=== PATIENT | female | born 1970 | race Caucasian/White ===

== ENCOUNTER 2016-07-25 00:31 | Emergency (ER) | payer MEDICARE, MEDICAID ==
[~2016-07-25] VITALS: Ht 175.3 cm; Wt 136.1 kg
[2016-07-25] MEDS ORDERED: ACETAMINOPHEN ES 500 MG TABLET ONE (02:24)
[2016-07-25] MEDS ORDERED: ACETAMINOPHEN 325 MG TABLET PO ONE (02:30)
[2016-07-25 07:55] VITALS: BP 118/72
== END 2016-07-25 03:29 | disposition home or self-care (01) ==
LOC: ER 00:34
DX: M25.569 Pain in unspecified knee (principal)
CPT/HCPCS: A4606; Z7610

== ENCOUNTER 2016-09-15 18:00 | Emergency (ER) | payer MEDICARE, MEDICAID ==
[~2016-09-15] VITALS: Ht 172.7 cm; Wt 124.7 kg
[2016-09-15 18:03] VITALS: BP 129/84
== END 2016-09-15 19:25 | disposition home or self-care (01) ==
LOC: ER 18:02
DX: F41.0 Panic disorder [episodic paroxysmal anxiety] (principal); F32.9 Major depressive disorder, single episode, unspecified; F43.9 Reaction to severe stress, unspecified; I10 Essential (primary) hypertension; E78.00 Pure hypercholesterolemia, unspecified; F41.9 Anxiety disorder, unspecified
CPT/HCPCS: 99284; A4606; Z7610

== ENCOUNTER 2016-12-31 22:09 | Inpatient (IN) | payer MEDICARE, MEDICAID ==
[~2016-12-31] VITALS: Ht 175.3 cm; Wt 143.8 kg
[2016-12-31] MEDS ORDERED: ACETAMINOPHEN ES 500 MG TABLET ONE (22:55)
[2016-12-31] MEDS ORDERED: ACETAMINOPHEN ES 500 MG TABLET PO ONE (23:00)
[2016-12-31 23:28] LABS: BASOPHILS % (AUTO) 0.5 % (0.0-2.0); EOSINOPHILS # (AUTO) 0.3 /CMM (0.0-0.7); EOSINOPHILS % (AUTO) 4.9 % (0.0-6.0); HEMATOCRIT 37 % (33-45); HEMOGLOBIN 12.3 g/dL (11.5-14.8); LYMPHOCYTES # (AUTO) 1.4 /CMM (0.8-4.8); LYMPHOCYTES % (AUTO) 21.5 % (20.0-44.0); MEAN CORPUSCULAR HEMOGLOBIN 30 PG (26.0-33.0); MEAN CORPUSCULAR HGB CONC 34 g/dl (31.0-36.0); MEAN CORPUSCULAR VOLUME 89 fL (82-100); MONOCYTES # (AUTO) 0.6 /CMM (0.1-1.30); MONOCYTES % (AUTO) 8.8 % (2.0-12.0); NEUTROPHILS # (AUTO) 4.1 /CMM (1.8-8.9); NEUTROPHILS % (AUTO) 64.3 % (43.0-81.0); PLATELET COUNT (AUTO) 206 /CMM (150-450); RDW COEFFICIENT OF VARIATION 13.8 (11.5-15.0); RED BLOOD CELL COUNT(AUTO) 4.13 MIL/uL (4.0-5.2); WHITE BLOOD COUNT (AUTO) 6.4 K/uL (4.3-11.0)
[2016-12-31 23:40] LABS: CALCIUM, SERUM 8.7 mg/dL (8.5-10.1); CREATININE 1.8 mg/dL (0.6-1.3); POTASSIUM 3.8 mmol/L (3.5-5.1)
[2017-01-01] MEDS ORDERED: FUROSEMIDE 20 MG/2 ML VIAL IV SCH (01:00)
[2017-01-01] MEDS ORDERED: NITROGLYCERIN 0.4 MG/TAB BOTTLE SL ONE (01:00)
[2017-01-01 01:20] LABS: INR 0.95 (0.87-1.13); PROTHROMBIN TIME 10.1 SECS (9.5-12.7)
[2017-01-01] MEDS ORDERED: NITROGLYCERIN 0.4 MG/TAB BOTTLE ONE (01:47)
[2017-01-01] MEDS ORDERED: FUROSEMIDE 40 MG/4 ML VIAL ONE (01:47)
[2017-01-01] MEDS ORDERED: TOPI50TA21 PO (02:05)
[2017-01-01] MEDS ORDERED: TAMO20TA4 PO (02:05)
[2017-01-01] MEDS ORDERED: QUET400T PO (02:05)
[2017-01-01] MEDS ORDERED: ATOR10TA PO (02:05)
[2017-01-01] MEDS ORDERED: CLON1TAB4 PO (02:05)
[2017-01-01] MEDS ORDERED: ACET500C4 PO (02:06)
[2017-01-01] MEDS ORDERED: LORA1TAB PO (02:06)
[2017-01-01] MEDS ORDERED: ESCI20TA PO (02:06)
[2017-01-01] MEDS ORDERED: RISP3TAB5 PO (02:06)
[2017-01-01] MEDS ORDERED: IBUP-1482 PO (02:06)
[2017-01-01] MEDS ORDERED: BENZ1TAB7 PO (02:06)
[2017-01-01] MEDS ORDERED: ACETAMINOPHEN 650 MG/20.3 ML UDC NG PRN (03:00)
[2017-01-01] MEDS ORDERED: ENOXAPARIN SODIUM 40 MG/0.4 ML DISP.SYRIN SQ SCH (03:00)
[2017-01-01] MEDS ORDERED: LORAZEPAM INJ 2 MG/ML VIAL IV PRN (03:00)
[2017-01-01] MEDS ORDERED: ENOXAPARIN SODIUM 40 MG/0.4 ML DISP.SYRIN SQ ONE (03:08)
[2017-01-01] MEDS ORDERED: BUMETANIDE INJ 0.25 MG/ML VIAL ONE (03:08)
[2017-01-01 03:13] VITALS: BP 150/72
[2017-01-01] MEDS ORDERED: BUMETANIDE INJ 0.25 MG/ML VIAL IV SCH ×2 (04:00→10:00)
[2017-01-01 06:45] LABS: BASOPHILS % (AUTO) 0.6 % (0.0-2.0); EOSINOPHILS # (AUTO) 0.4 /CMM (0.0-0.7); EOSINOPHILS % (AUTO) 6.2 % (0.0-6.0); HEMATOCRIT 38 % (33-45); HEMOGLOBIN 12.8 g/dL (11.5-14.8); LYMPHOCYTES # (AUTO) 1.3 /CMM (0.8-4.8); LYMPHOCYTES % (AUTO) 23.4 % (20.0-44.0); MEAN CORPUSCULAR HEMOGLOBIN 30 PG (26.0-33.0); MEAN CORPUSCULAR HGB CONC 34 g/dl (31.0-36.0); MEAN CORPUSCULAR VOLUME 89 fL (82-100); MONOCYTES # (AUTO) 0.5 /CMM (0.1-1.30); MONOCYTES % (AUTO) 8.3 % (2.0-12.0); NEUTROPHILS # (AUTO) 3.5 /CMM (1.8-8.9); NEUTROPHILS % (AUTO) 61.5 % (43.0-81.0); PLATELET COUNT (AUTO) 198 /CMM (150-450); RDW COEFFICIENT OF VARIATION 14.2 (11.5-15.0); RED BLOOD CELL COUNT(AUTO) 4.23 MIL/uL (4.0-5.2); WHITE BLOOD COUNT (AUTO) 5.7 K/uL (4.3-11.0)
[2017-01-01 06:54] LABS: CALCIUM, SERUM 8.9 mg/dL (8.5-10.1); CARBON DIOXIDE 25 mmol/L (21-32); CHLORIDE 107 mmol/L (98-107); CREATININE 1.8 mg/dL (0.6-1.3); GLUCOSE 108 mg/dL (74-106); MAGNESIUM 2.1 mg/dL (1.8-2.4); PHOSPHORUS 4.9 mg/dL (2.5-4.9); POTASSIUM 3.9 mmol/L (3.5-5.1); SODIUM SERUM 141 mmol/L (136-145); UREA NITROGEN, BLOOD 36 mg/dL (7-18)
[2017-01-01 07:11] LABS: CHOLESTEROL 196 mg/dL (<200); HDL CHOLESTEROL 52 mg/dL (40-60); LDL 114 mg/dL (0-99); TRIGLYCERIDES 88 mg/dL (30-150)
[2017-01-01 07:13] LABS: TROPONIN I < 0.017 ng/mL (0.00-0.056)
[2017-01-01 08:00] VITALS: BP 131/77
[2017-01-01] MEDS ORDERED: LORAZEPAM 1 MG TABLET PO PRN (08:30)
[2017-01-01] MEDS ORDERED: IBUPROFEN 800 MG TABLET PO PRN (08:30)
[2017-01-01] MEDS: PANTOPRAZOLE 40 MG TABLET.DR PO SCH (09:07)
[2017-01-01] MEDS: ASPIRIN 81 MG TAB.CHEW PO SCH (09:07)
[2017-01-01 09:14] LABS: THYROID STIMULATING HORMONE 4.221 uIU/mL (0.358-3.74)
[2017-01-01] MEDS ORDERED: ACETAMINOPHEN ES 500 MG TABLET PO PRN (11:30)
[2017-01-01 12:00] VITALS: BP 133/71
[2017-01-01] MEDS: IBUPROFEN 200 MG TABLET PO PRN ×2 (12:40→21:59)
[2017-01-01 16:00] VITALS: BP 121/67
[2017-01-01] MEDS: risperiDONE 1 MG TABLET PO SCH (16:32)
[2017-01-01] MEDS: clonazePAM 1 MG TABLET PO SCH (16:32)
[2017-01-01] MEDS: BENZTROPINE MESYLATE (1 MG) 1 MG TABLET PO SCH (16:32)
[2017-01-01] MEDS: ACETAMINOPHEN ES 500 MG TABLET PO PRN (16:35)
[2017-01-01 20:00] VITALS: BP 152/82
[2017-01-01] MEDS: ATORVASTATIN 10 MG TABLET PO SCH (22:00)
[2017-01-01] MEDS: TOPIRAMATE 25 MG TABLET PO SCH (22:02)
[2017-01-01] MEDS: QUETIAPINE FUMARATE 100 MG TABLET PO SCH (22:02)
[2017-01-01] MEDS: TAMOXIFEN CITRATE 10 MG TABLET PO SCH (22:03)
[2017-01-02] VITALS: BP_SYST 154; BP_DIAS 70; BP_DIAS 80
[2017-01-02 04:00] VITALS: BP 149/73
[2017-01-02 06:46] LABS: ALBUMIN 3.2 g/dL (3.4-5.0); BILIRUBIN,TOTAL 0.2 mg/dL (0.2-1.0); MAGNESIUM 2.3 mg/dL (1.8-2.4); POTASSIUM 4.3 mmol/L (3.5-5.1)
[2017-01-02 06:52] LABS: BASOPHILS % (AUTO) 0.4 % (0.0-2.0); EOSINOPHILS # (AUTO) 0.3 /CMM (0.0-0.7); EOSINOPHILS % (AUTO) 5.2 % (0.0-6.0); HEMATOCRIT 40 % (33-45); HEMOGLOBIN 13.3 g/dL (11.5-14.8); LYMPHOCYTES # (AUTO) 1.2 /CMM (0.8-4.8); LYMPHOCYTES % (AUTO) 20.7 % (20.0-44.0); MEAN CORPUSCULAR HEMOGLOBIN 30 PG (26.0-33.0); MEAN CORPUSCULAR HGB CONC 34 g/dl (31.0-36.0); MEAN CORPUSCULAR VOLUME 89 fL (82-100); MONOCYTES # (AUTO) 0.6 /CMM (0.1-1.30); MONOCYTES % (AUTO) 9.8 % (2.0-12.0); NEUTROPHILS # (AUTO) 3.7 /CMM (1.8-8.9); NEUTROPHILS % (AUTO) 63.9 % (43.0-81.0); PLATELET COUNT (AUTO) 203 /CMM (150-450); RDW COEFFICIENT OF VARIATION 14.1 (11.5-15.0); RED BLOOD CELL COUNT(AUTO) 4.44 MIL/uL (4.0-5.2); WHITE BLOOD COUNT (AUTO) 5.8 K/uL (4.3-11.0)
[2017-01-02 08:00] VITALS: BP 128/78
[2017-01-02] MEDS: ACETAMINOPHEN ES 500 MG TABLET PO PRN (08:23)
[2017-01-02] MEDS: clonazePAM 1 MG TABLET PO SCH ×2 (08:24→16:08)
[2017-01-02] MEDS: ASPIRIN 81 MG TAB.CHEW PO SCH (08:24)
[2017-01-02] MEDS: risperiDONE 1 MG TABLET PO SCH ×2 (08:24→16:08)
[2017-01-02] MEDS: PANTOPRAZOLE 40 MG TABLET.DR PO SCH (08:24)
[2017-01-02] MEDS: BENZTROPINE MESYLATE (1 MG) 1 MG TABLET PO SCH ×2 (08:24→16:08)
[2017-01-02] MEDS: ESCITALOPRAM OXALATE (10 MG) 10 MG TABLET PO SCH (08:24)
[2017-01-02] MEDS: ENOXAPARIN SODIUM 40 MG/0.4 ML DISP.SYRIN SQ SCH (08:29)
[2017-01-02] MEDS: LEVOTHYROXINE SODIUM 50 MCG TABLET PO SCH (08:31)
[2017-01-02 15:54] VITALS: BP 128/78
[2017-01-02 20:00] VITALS: BP 128/78
[2017-01-02 20:03] VITALS: BP 128/78
[2017-01-02] MEDS: QUETIAPINE FUMARATE 100 MG TABLET PO SCH (22:02)
[2017-01-02] MEDS: ATORVASTATIN 10 MG TABLET PO SCH (22:02)
[2017-01-02] MEDS: TOPIRAMATE 25 MG TABLET PO SCH (22:02)
[2017-01-02] MEDS: TAMOXIFEN CITRATE 10 MG TABLET PO SCH (22:03)
[2017-01-03 07:17] LABS: BASOPHILS % (AUTO) 0.3 % (0.0-2.0); EOSINOPHILS # (AUTO) 0.3 /CMM (0.0-0.7); EOSINOPHILS % (AUTO) 5.6 % (0.0-6.0); HEMATOCRIT 38 % (33-45); HEMOGLOBIN 12.8 g/dL (11.5-14.8); LYMPHOCYTES # (AUTO) 1.3 /CMM (0.8-4.8); MEAN CORPUSCULAR HEMOGLOBIN 30 PG (26.0-33.0); MEAN CORPUSCULAR HGB CONC 34 g/dl (31.0-36.0); MEAN CORPUSCULAR VOLUME 90 fL (82-100); MONOCYTES # (AUTO) 0.5 /CMM (0.1-1.30); MONOCYTES % (AUTO) 8.9 % (2.0-12.0); NEUTROPHILS # (AUTO) 3.8 /CMM (1.8-8.9); NEUTROPHILS % (AUTO) 63.2 % (43.0-81.0); PLATELET COUNT (AUTO) 197 /CMM (150-450); RDW COEFFICIENT OF VARIATION 13.7 (11.5-15.0); RED BLOOD CELL COUNT(AUTO) 4.21 MIL/uL (4.0-5.2)
[2017-01-03 07:24] LABS: CREATININE 1.8 mg/dL (0.6-1.3); MAGNESIUM 2.3 mg/dL (1.8-2.4)
[2017-01-03 08:00] VITALS: BP 130/71
[2017-01-03] MEDS: PANTOPRAZOLE 40 MG TABLET.DR PO SCH (09:12)
[2017-01-03] MEDS: clonazePAM 1 MG TABLET PO SCH (09:12)
[2017-01-03] MEDS: LEVOTHYROXINE SODIUM 50 MCG TABLET PO SCH (09:12)
[2017-01-03] MEDS: ESCITALOPRAM OXALATE (10 MG) 10 MG TABLET PO SCH (09:13)
[2017-01-03] MEDS: ASPIRIN 81 MG TAB.CHEW PO SCH (09:13)
[2017-01-03] MEDS: risperiDONE 1 MG TABLET PO SCH (09:13)
[2017-01-03] MEDS: BENZTROPINE MESYLATE (1 MG) 1 MG TABLET PO SCH (09:13)
[2017-01-03] MEDS: ENOXAPARIN SODIUM 40 MG/0.4 ML DISP.SYRIN SQ SCH (09:19)
[2017-01-03] MEDS: ACETAMINOPHEN ES 500 MG TABLET PO PRN (09:24)
== END 2017-01-03 12:21 | DRG 291 ==
LOC: ER 22:11 → TELE 01-01 00:43 → MED 01-02 08:48
PROVIDERS: ADMIT Legal Medicine; ATTEND Legal Medicine
DX: I13.0 Hypertensive heart and chronic kidney disease with heart failure and stage 1 through stage 4 chronic kidney disease, or unspecified chronic kidney disease (principal); I50.33 Acute on chronic diastolic (congestive) heart failure; F20.0 Paranoid schizophrenia; Z68.42 Body mass index [BMI] 45.0-49.9, adult; I89.0 Lymphedema, not elsewhere classified; N18.9 Chronic kidney disease, unspecified; E11.22 Type 2 diabetes mellitus with diabetic chronic kidney disease; D64.9 Anemia, unspecified; E03.9 Hypothyroidism, unspecified; E66.01 Morbid (severe) obesity due to excess calories; G89.29 Other chronic pain; Z95.0 Presence of cardiac pacemaker; Z85.3 Personal history of malignant neoplasm of breast; M19.90 Unspecified osteoarthritis, unspecified site; F79 Unspecified intellectual disabilities; Z79.899 Other long term (current) drug therapy; I49.5 Sick sinus syndrome
CPT/HCPCS: 36415; 71010-TC; 76770-TC; 80048-TC; 80053-TC; 80061-TC; 82306; 82728-TC; 83540-TC; 83735-TC; 83880; 84100-TC; 84439-TC; 84443-TC; 84484-TC; 85025-TC; 85610-TC; 87081-TC; 93307-TC; 97001-TC; A4606; J1650; J1940; J3490; Z7610

== ENCOUNTER 2017-01-13 12:37 | Emergency (ER) | payer MEDICARE, MEDICAID ==
[~2017-01-13] VITALS: Ht 175.3 cm; Wt 143.8 kg
[~2017-01-13 12:37] MED LIST: ACET500C4 PO; ATOR10TA PO; BENZ1TAB7 PO; CLON1TAB4 PO; ESCI20TA PO; IBUP-1482 PO; LORA1TAB PO; QUET400T PO; RISP3TAB5 PO; TAMO20TA4 PO; TOPI50TA21 PO
--- NOTE | 2017-01-13 13:00 | NUR ---
PT BIBA FOR VAGINAL PAIN SINCE YESTERDAY. NOTED ANXIOUS. DENIES TRAUMA. VSS. SEEN BY MD FOR EVAL. SAFETY AND COMFORT MEASURES PROVIDED. WILL MONITOR.
[2017-01-13 13:34] LABS: BASOPHILS # (AUTO) 0.1 /CMM (0.0-0.2); EOSINOPHILS # (AUTO) 0.3 /CMM (0.0-0.7); EOSINOPHILS % (AUTO) 4.4 % (0.0-6.0); HEMATOCRIT 39 % (33-45); LYMPHOCYTES # (AUTO) 1.1 /CMM (0.8-4.8); LYMPHOCYTES % (AUTO) 17.4 % (20.0-44.0); MEAN CORPUSCULAR HEMOGLOBIN 30 PG (26.0-33.0); MEAN CORPUSCULAR HGB CONC 33 g/dl (31.0-36.0); MEAN CORPUSCULAR VOLUME 89 fL (82-100); MONOCYTES # (AUTO) 0.5 /CMM (0.1-1.30); MONOCYTES % (AUTO) 7.4 % (2.0-12.0); NEUTROPHILS # (AUTO) 4.6 /CMM (1.8-8.9); NEUTROPHILS % (AUTO) 69.8 % (43.0-81.0); PLATELET COUNT (AUTO) 187 /CMM (150-450); RDW COEFFICIENT OF VARIATION 12.8 (11.5-15.0); RED BLOOD CELL COUNT(AUTO) 4.36 MIL/uL (4.0-5.2); WHITE BLOOD COUNT (AUTO) 6.6 K/uL (4.3-11.0)
--- NOTE | 2017-01-13 13:34 | NUR ---
IV ACCESS STARTED. BLOOD DRAWN FOR LABS.
[2017-01-13 13:36] LABS: BILIRUBIN,URINE Negative (NEGATIVE); BLOOD, URINE Negative Ery/uL (NEGATIVE); COLOR,URINE Yellow (YELLOW); KETONES,URINE Trace (NEGATIVE); LEUKOCYTE ESTERASE ,URINE Negative (NEGATIVE); NITRITE, URINE Negative (NEGATIVE); PH,URINE 5.5 (5.0-8.0); PROTEIN,URINE Negative (NEGATIVE); UGLUCOSE Negative (NEGATIVE); UROBILINOGEN,URINE 0.2 EU/dL (0.2)
[2017-01-13 13:37] LABS: APPEARANCE,URINE Hazy (CLEAR)
[2017-01-13 13:38] LABS: PREGNANCY TEST URINE QUAL NEGATIVE (NEGATIVE)
[2017-01-13 13:41] LABS: BACTERIA,URINE None seen /HPF (None Seen); RBC,URINE 0-2 /HPF (0-2); SQUAMOUS EPITHELIAL CELL,UR Few /HPF (None Seen); WBC,URINE 0-3 /HPF (0-3)
[2017-01-13 13:41] LABS: CREATININE 1.8 mg/dL (0.6-1.3); POTASSIUM 4.6 mmol/L (3.5-5.1)
[2017-01-13 13:47] LABS: ALBUMIN 3.3 g/dL (3.4-5.0); BILIRUBIN,DIRECT 0.1 mg/dL (0.0-0.2); BILIRUBIN,TOTAL 0.2 mg/dL (0.2-1.0); TOTAL PROTEIN, SERUM 7.1 g/dL (6.4-8.2)
--- NOTE | 2017-01-13 14:20 | NUR ---
CALLED [facility] FOR TRANSPORTATION PER PT'S REQUEST, ETA 20 MINS.
--- NOTE | 2017-01-13 14:30 | NUR ---
DPatient discharged to home in stable condition. Written and verbal after care instructions given. Patient verbalizes understanding of instruction.
--- NOTE | 2017-01-13 14:50 | NUR ---
IV removed. Catheter intact and site benign. Pressure and 4x4 applied to site. No bleeding noted.
[2017-01-13 14:56] VITALS: BP 128/78
== END 2017-01-13 14:59 | disposition home or self-care (01) ==
LOC: ER 12:39
DX: R30.0 Dysuria (principal); N28.9 Disorder of kidney and ureter, unspecified; E78.5 Hyperlipidemia, unspecified; F20.9 Schizophrenia, unspecified; F41.9 Anxiety disorder, unspecified; G89.29 Other chronic pain; I10 Essential (primary) hypertension; K59.00 Constipation, unspecified; Z88.8 Allergy status to other drugs, medicaments and biological substances
CPT/HCPCS: 36415; 80048-TC; 80076-TC; 81000-TC; 83690-TC; 84703-TC; 85025-TC; A4606; Z7610

== ENCOUNTER 2017-02-28 17:02 | Inpatient (IN) | payer MEDICARE, MEDICAID ==
[~2017-02-28] VITALS: Ht 167.6 cm; Wt 145.1 kg
[2017-02-28] MEDS ORDERED: ONDANSETRON HCL/PF 4 MG/2 ML VIAL ONE (17:12)
[2017-02-28] MEDS ORDERED: MORPHINE SULFATE INJ 4 MG/ML DISP.SYRIN ONE (17:12)
[2017-02-28] MEDS ORDERED: ACETAMINOPHEN ES 500 MG TABLET ONE (17:27)
[2017-02-28] MEDS ORDERED: LORAZEPAM INJ 2 MG/ML VIAL ONE (17:27)
[2017-02-28] MEDS ORDERED: MORPHINE SULFATE INJ 2 MG/ML DISP.SYRIN IV ONE (17:30)
[2017-02-28] MEDS ORDERED: ACETAMINOPHEN ES 500 MG TABLET PO ONE (17:30)
[2017-02-28] MEDS ORDERED: LORAZEPAM INJ 2 MG/ML VIAL IV ONE (17:30)
[2017-02-28] MEDS ORDERED: ONDANSETRON HCL/PF 4 MG/2 ML VIAL IVP ONE (17:30)
--- NOTE | 2017-02-28 17:36 | NUR ---
IV ACCESS STARTED, UNABLE TO DRAW BLOOD FROM SITE. PT REFUSED MORPHINE. MADE AWARE. OTHER MEDS GIVEN. REFUSES BLOOD DRAW FROM MEDICAL PHYSIOLOGIST.
--- NOTE | 2017-02-28 17:38 | NUR ---
RECEIVED REPORT FROM CORY BARRETO FOR SERVANDO. PT APPEARS TO BE COMFORTABLE. PT DENIES ANY PAIN AT THIS TIME.
[2017-02-28] MEDS ORDERED: LEVO50TA8 PO (17:43)
[2017-02-28] MEDS ORDERED: RISP0.2515 PO (17:43)
[2017-02-28] MEDS ORDERED: ASPI-991 PO (17:43)
--- NOTE | 2017-02-28 17:46 | NUR ---
RADIOLOGY AT BEDSIDE FOR CXR.
--- NOTE | 2017-02-28 17:58 | NUR ---
DR. WALKER AT BEDSIDE SPEAKING TO PT REGARDING RESULTS.
--- NOTE | 2017-02-28 18:00 | NUR ---
DR. WALKER UNABLE TO DO CONSCIOUS SEDATION D/T ROD POINTER PROVIDED PT FOOD.
--- NOTE | 2017-02-28 18:15 | NUR ---
DR. WALKER SPOKE TO DR. MCCORD FOR SURGICAL CONSULT.
--- NOTE | 2017-02-28 18:17 | NUR ---
LAB AT BEDSIDE FOR BLOOD DRAW.
[2017-02-28 18:22] LABS: BASOPHILS # (AUTO) 0.1 /CMM (0.0-0.2); BASOPHILS % (AUTO) 0.5 % (0.0-2.0); EOSINOPHILS # (AUTO) 0.1 /CMM (0.0-0.7); EOSINOPHILS % (AUTO) 1.2 % (0.0-6.0); HEMATOCRIT 42 % (33-45); HEMOGLOBIN 13.6 g/dL (11.5-14.8); LYMPHOCYTES # (AUTO) 1.1 /CMM (0.8-4.8); LYMPHOCYTES % (AUTO) 9.3 % (20.0-44.0); MEAN CORPUSCULAR HEMOGLOBIN 29 PG (26.0-33.0); MEAN CORPUSCULAR HGB CONC 32 g/dl (31.0-36.0); MEAN CORPUSCULAR VOLUME 89 fL (82-100); MONOCYTES # (AUTO) 0.4 /CMM (0.1-1.30); MONOCYTES % (AUTO) 3.2 % (2.0-12.0); NEUTROPHILS # (AUTO) 10.6 /CMM (1.8-8.9); NEUTROPHILS % (AUTO) 85.8 % (43.0-81.0); PLATELET COUNT (AUTO) 231 /CMM (150-450); RED BLOOD CELL COUNT(AUTO) 4.72 MIL/uL (4.0-5.2); WHITE BLOOD COUNT (AUTO) 12.3 K/uL (4.3-11.0)
[2017-02-28 18:43] LABS: CARBON DIOXIDE 24 mmol/L (21-32); CHLORIDE 104 mmol/L (98-107); CREATININE 1.6 mg/dL (0.6-1.3); GLUCOSE 142 mg/dL (74-106); POTASSIUM 4.3 mmol/L (3.5-5.1); SODIUM SERUM 138 mmol/L (136-145); UREA NITROGEN, BLOOD 28 mg/dL (7-18)
--- NOTE | 2017-02-28 18:46 | NUR ---
DR. WALKER SPEAKING TO DR. SELBY.
--- NOTE | 2017-02-28 18:47 | NUR ---
PT ASSIGNED TO MS [id number]
[2017-02-28 18:51] LABS: TROPONIN I < 0.017 ng/mL (0.00-0.056)
[2017-02-28 18:52] LABS: INR 0.95 (0.87-1.13); PROTHROMBIN TIME 9.9 SECS (9.5-12.7)
--- NOTE | 2017-02-28 18:57 | NUR ---
REPORT GIVEN TO CORY HYDE FOR SERVANDO.
[2017-02-28 18:58] LABS: B-TYPE NATRIURETIC PEPTIDE 36 PG/ML (0-125)
[2017-02-28] MEDS ORDERED: ZOLPIDEM TARTRATE 5 MG TABLET PO PRN ×2 (19:00→19:15)
[2017-02-28] MEDS ORDERED: Z GUARD REMEDY 2 OZ OINT TP PRN ×2 (19:00→19:15)
[2017-02-28] MEDS ORDERED: ACETAMINOPHEN ES 500 MG TABLET PO PRN ×2 (19:00→19:15)
[2017-02-28] MEDS ORDERED: MORPHINE SULFATE INJ 2 MG/ML DISP.SYRIN IV PRN ×2 (19:00→19:15)
[2017-02-28] MEDS ORDERED: MAG HYDROX/AL HYDROX/SIMETH 30 ML UDC PO PRN ×2 (19:00→19:15)
[2017-02-28] MEDS ORDERED: TEMAZEPAM 15 MG CAPSULE PO PRN ×2 (19:00→19:15)
[2017-02-28] MEDS ORDERED: MAGNESIUM HYDROXIDE 30 ML UDC PO PRN ×2 (19:00→19:15)
[2017-02-28] MEDS ORDERED: ONDANSETRON HCL/PF 4 MG/2 ML VIAL IVP PRN ×2 (19:00→19:15)
[2017-02-28] MEDS ORDERED: HYDROCODONE/APAP 5/325MG 1 EACH TABLET PO PRN ×2 (19:00→19:15)
[2017-02-28] MEDS ORDERED: ACETAMINOPHEN 325 MG TABLET PO PRN ×2 (19:00→19:15)
[2017-02-28] MEDS ORDERED: HYDROCODONE/APAP 10/325MG 1 EA TABLET PO PRN ×2 (19:00→19:15)
--- NOTE | 2017-02-28 19:06 | NUR ---
PT TRANSFERED VIA W/C
--- NOTE | 2017-02-28 19:53 | NUR ---
MS/RN RECEIVE PATIENT IN BED AWAKE, ALERT ORIENTED TO NAME ONLY, C/O PAIN IN RT. SHOULDER 02/20, MEDICATED WITH NORCO 10 MG PO ORDERED. RT. ARM WITH SLING, NO DISTRESS NOTED, TAUGHT THE USE OF CALL LIGHT AND PLACED IT WITHIN REACH. UNABLE TO OBTAIN MUCH INFORMATION FROM THE PATIENT SHE IS A POOR HISTORIAN. PATIENT ANSWERS "I DON'T KNOW TO QUESTIONS". PATIENT IS FALL RISK, FALL PRECAUTION PER PROTOCOL INSTITUTED. WILL MONITOR.
[2017-02-28 20:00] VITALS: BP 162/90
[2017-02-28] MEDS: TAMOXIFEN CITRATE 10 MG TABLET PO SCH (21:07)
[2017-02-28] MEDS: TOPIRAMATE 25 MG TABLET PO SCH (21:08)
[2017-02-28] MEDS: ATORVASTATIN 10 MG TABLET PO SCH (21:11)
[2017-02-28] MEDS: QUETIAPINE FUMARATE 100 MG TABLET PO SCH (21:11)
[2017-02-28] MEDS ORDERED: TAMOXIFEN CITRATE 10 MG TABLET PO SCH (22:00)
[2017-02-28] MEDS ORDERED: TOPIRAMATE 25 MG TABLET PO SCH (22:00)
[2017-02-28] MEDS ORDERED: QUETIAPINE FUMARATE 100 MG TABLET PO SCH (22:00)
[2017-02-28] MEDS ORDERED: ATORVASTATIN 10 MG TABLET PO SCH (22:00)
--- NOTE | 2017-02-28 23:48 | NUR ---
AMS/RN PATIENT REFUSED SKIN ASSESSMENT.
[2017-03-01] VITALS (7 sets, daily range): BP systolic 147–179; BP diastolic 69–91
--- NOTE | 2017-03-01 06:14 | NUR ---
MS/RN AWAKE, HALLUCINATING, ON AND OFF SLEEP THE WHOLE SHIFT, NO DISTRESS NOTED, NO C/O PAIN. ALL NEEDS ATTENDED AT THIS TIME. WILL CONTINUE TO MONITOR.
--- NOTE | 2017-03-01 06:36 | NUR ---
MS/RN PATIENT NEEDS CONSENT FOR SURGERY TODAY. PATIENT IS CONFUSED, THEREFORE CAN NOT GIVE CONSENT. CALLED MR. ROCIO OWUSU, PER FACE SHEET PEDIATRIC ALLERGIST, BUT NOT A WORKING NUMBER. CALLED MS. GIFTY ROUSSEAU, LEFT MESSAGE.
--- NOTE | 2017-03-01 07:04 | NUR ---
MS/RN MS. GIFTY GARCIA CALLED BACK. RADHA IS THE MINE WIRER OF [facility], AND CANNOT GIVE CONSENT. SHE GAVE ME PATIENT'S SISTER, MYRA OWUSU, . CALLED THE NUMBER AND LEFT MESSAGE.
--- NOTE | 2017-03-01 07:25 | NUR ---
MS/RN MYRA OWUSU CALLED BACK AND GAVE CONSENT FOR THE SURGERY. PER MYRA, THE PATIENT HAS PACEMAKER AND NO OTHER IMPLANTS.
[2017-03-01] MEDS ORDERED: PANTOPRAZOLE 40 MG TABLET.DR PO SCH (07:30)
[2017-03-01] MEDS: PANTOPRAZOLE 40 MG TABLET.DR PO SCH (07:30)
[2017-03-01] MEDS: LEVOTHYROXINE SODIUM 50 MCG TABLET PO SCH (07:30)
[2017-03-01] MEDS ORDERED: LEVOTHYROXINE SODIUM 50 MCG TABLET PO SCH (07:30)
--- NOTE | 2017-03-01 07:37 | NUR ---
AM RN NOTE Received patient awake, A/O to self only. Verbally responsive, talking non-sensical. Pt on NPO status for right shoulder surgery. Pt refusing to wear right arm sling at this time. IV site intact and patent. Bed in low locked position. Will continue to monitor.
[2017-03-01] MEDS: risperiDONE 1 MG TABLET PO SCH ×2 (08:12→16:00)
[2017-03-01] MEDS: BENZTROPINE MESYLATE (1 MG) 1 MG TABLET PO SCH ×2 (08:12→16:00)
[2017-03-01] MEDS: clonazePAM 1 MG TABLET PO SCH ×2 (08:12→16:00)
--- NOTE | 2017-03-01 08:55 | NUR ---
AM RN NOTE Received call from [facility] (OR) to place STAT test as requested by Dr. Merida (Anesthesiologist) order noted and carried out.
[2017-03-01] MEDS ORDERED: risperiDONE 0.25 MG TABLET PO SCH (09:00)
[2017-03-01] MEDS ORDERED: BENZTROPINE MESYLATE (1 MG) 1 MG TABLET PO SCH (09:00)
[2017-03-01] MEDS ORDERED: clonazePAM 1 MG TABLET PO SCH (09:00)
--- NOTE | 2017-03-01 09:38 | NUR ---
AM RN NOTE Patient awake, left to OR as accompanied by OR staff.
[2017-03-01] MEDS ORDERED: MIDAZOLAM HCL 2 MG/2ML VIAL ONE (09:40)
[2017-03-01] MEDS ORDERED: FENTANYL PF 100MCG/2ML AMPUL ONE (09:40)
--- NOTE | 2017-03-01 10:54 | NUR ---
AM RN NOTE Patient awake, came back from OR as accompanied by OR staff. Sling on right arm and with NWB on RUE. New orders given by Dr. Gregorio noted and carried out. Ice pack applied on right shoulder by OR staff to prevent swelling. V/S BP158/91 T97.8 P81 R19 O2 sat 95% at RA. Will continue to monitor.
[2017-03-01] MEDS ORDERED: ANESTHESIA TRAY IN PYXIS 1 EA TRAY MC ONE (11:21)
--- NOTE | 2017-03-01 13:07 | NUR ---
AM RN NOTE Patient allowed RN to do body check, noted redness on perineal area. Skin picture taken and placed in chart and wound consult ordered. Applied Remedy Z guard.
--- NOTE | 2017-03-01 18:22 | NUR ---
AM RN NOTE Patient resting in her bed, ling on RUE. No acute distress noted at this time. Will endorse care to next shift.
--- NOTE | 2017-03-01 20:11 | NUR ---
RN NOTES RECEIVED PATIENT IN BED, ALERT AND ORIENTED X1, WITH EPISODES OF CONFUSION, NO SOB, NO DISTRESS, DENIES ANY PAIN AT THIS TIME, NON-COMPLIANT IN WEARING RIGHT SHOULDER SLING, REFUSES TO WEAR SLING, ON FALL PRECAUTION, BED ALARM TURNED ON, CALL LIGHT WITHIN REACH.
[2017-03-01] MEDS: TAMOXIFEN CITRATE 10 MG TABLET PO SCH (21:57)
[2017-03-01] MEDS: ATORVASTATIN 10 MG TABLET PO SCH (21:57)
[2017-03-01] MEDS: QUETIAPINE FUMARATE 100 MG TABLET PO SCH (21:57)
[2017-03-01] MEDS: TOPIRAMATE 25 MG TABLET PO SCH (21:57)
--- NOTE | 2017-03-02 06:58 | NUR ---
RN NOTES PATIENT IS ALERT AND AWAKE, NO SOB, NO RESPIRATORY DISTRESS, NO COMPLAIN OF PAIN, COMPLIANT OF MEDICATION AND AGREED TO PUT ON RIGHT SHOULDER SLING. NEEDS ATTENDED, CALL LIGHT WITHIN REACH.
--- NOTE | 2017-03-02 07:30 | NUR ---
RN MS NOTES PT IN BED, ASLEEP, EASY TO AROUSE, ALERT, ABLE TO MAKE NEEDS KNOWN, NO COMPLAINT OF PAIN, RESPIRATIONS NORMAL, CALL LIGHT WITHIN REACH, NEEDS ATTENDED.
[2017-03-02 08:00] VITALS: BP 118/70
[2017-03-02] MEDS: BENZTROPINE MESYLATE (1 MG) 1 MG TABLET PO SCH (08:29)
[2017-03-02] MEDS: LEVOTHYROXINE SODIUM 50 MCG TABLET PO SCH (08:30)
[2017-03-02] MEDS: clonazePAM 1 MG TABLET PO SCH (08:30)
[2017-03-02] MEDS: risperiDONE 1 MG TABLET PO SCH (08:30)
[2017-03-02] MEDS: PANTOPRAZOLE 40 MG TABLET.DR PO SCH (08:30)
--- NOTE | 2017-03-02 12:00 | NUR ---
RN MS NOTES PT IN BED, AWAKE, NO COMPLAINT OF PAIN, WITH PERIODS OF CONFUSION, CALM AND COOPERATIVE PT SEEN BY MARK MARTEL, DISCHARGE ORDER GIVEN, PT INFORMED, VERBALIZED UNDESTANDING.
[2017-03-02 16:00] VITALS: BP 152/78
--- NOTE | 2017-03-02 17:00 | NUR ---
RN MS NOTES PT AWAKE, SITTING IN HER CHAIR, ALERT, DENIES PAIN, NOT IN DISTRESS, PT INFORMED OF DISCHARGE AND DISCHARGE INSTRUCTIONS, VERBALIZED UNDERSTANDING, JHON VO INFORMED THAT PT IS COMING BACK, SPOKE WITH ALEX, BELONGINGS ACCOUNTED FOR, PT STILL REFUSING TO WEAR HER RIGHT SHOULDER SLING/IMMOBILIZER, STATES THAT SHE DOES NOT NEED IT, EXPLAINED TO PT BUT PT STILL REFUSED AND STARTS TO GET AGITATED, PT REFUSED DISCHARGE BODY CHECK AND PHOTOS, PICKED UP BY 2 AMBULANCE PERSONNEL VIA [facility], LEFT IN STABLE CONDITION
== END 2017-03-02 16:50 | DRG 492 ==
LOC: ER 17:04 → MED 19:24
PROVIDERS: ADMIT Internal Medicine; ATTEND Internal Medicine
PROC: 0PSC35Z Reposition Right Humeral Head with External Fixation Device, Percutaneous Approach (ICD-10-PCS; principal; 2017-03-01 09:00)
DX: S43.004A Unspecified dislocation of right shoulder joint, initial encounter (principal); E43 Unspecified severe protein-calorie malnutrition; G21.0 Malignant neuroleptic syndrome; F20.0 Paranoid schizophrenia; Z68.43 Body mass index [BMI] 50.0-59.9, adult; E03.9 Hypothyroidism, unspecified; X58.XXXA Exposure to other specified factors, initial encounter; Y92.099 Unspecified place in other non-institutional residence as the place of occurrence of the external cause; E66.01 Morbid (severe) obesity due to excess calories; E78.5 Hyperlipidemia, unspecified; F09 Unspecified mental disorder due to known physiological condition; G89.29 Other chronic pain; I10 Essential (primary) hypertension; Z79.82 Long term (current) use of aspirin; Z79.899 Other long term (current) drug therapy; Z88.8 Allergy status to other drugs, medicaments and biological substances
CPT/HCPCS: 36415; 71010-TC; 73020; 73030-TC; 80048-TC; 83880; 84484-TC; 84703-TC; 85025-TC; 85730-TC; 87081-TC; A4606; J2060; J2250; J2270; J2405; J2704; J3010; Z7610

== ENCOUNTER 2017-07-19 10:32 | Inpatient (IN) | payer MEDICAID, MEDICARE ==
[~2017-07-19] VITALS: Ht 172.7 cm; Wt 133.8 kg
[~2017-07-19 10:32] MED LIST changes: +ASPI-1152 PO; -ESCI20TA PO; -IBUP-1482 PO; +LEVO50TA8 PO; -LORA1TAB PO; +RISP0.2515 PO; -RISP3TAB5 PO; -TOPI50TA21 PO; +TOPI50TA24 PO
--- NOTE | 2017-07-19 10:55 | NUR ---
Pt BIB private ambulance, EMT's report Right arm pain x 4 days. Pt c/o right shoulder and arm pain, 10/10, and right arm and finger tingling. Pt denies CP, SOB, dizziness, n/v, no other complaints, no distress noted.
[2017-07-19] MEDS ORDERED: MIDAZOLAM HCL 2 MG/2ML VIAL IV ONE (12:00)
[2017-07-19] MEDS ORDERED: FENTANYL PF 100MCG/2ML AMPUL IV ONE (12:00)
--- NOTE | 2017-07-19 12:45 | NUR ---
MD attempted to reduce shoulder dislocation, pt placed in sling per MD.
[2017-07-19 13:19] LABS: BASOPHILS % (AUTO) 0.4 % (0.0-2.0); EOSINOPHILS # (AUTO) 0.1 /CMM (0.0-0.7); EOSINOPHILS % (AUTO) 1.2 % (0.0-6.0); HEMATOCRIT 40 % (33-45); HEMOGLOBIN 13.2 g/dL (11.5-14.8); LYMPHOCYTES % (AUTO) 10.4 % (20.0-44.0); MEAN CORPUSCULAR HEMOGLOBIN 28 PG (26.0-33.0); MEAN CORPUSCULAR HGB CONC 33 g/dl (31.0-36.0); MEAN CORPUSCULAR VOLUME 86 fL (82-100); MONOCYTES # (AUTO) 0.5 /CMM (0.1-1.30); MONOCYTES % (AUTO) 5.7 % (2.0-12.0); NEUTROPHILS # (AUTO) 7.8 /CMM (1.8-8.9); NEUTROPHILS % (AUTO) 82.3 % (43.0-81.0); PLATELET COUNT (AUTO) 255 /CMM (150-450); RDW COEFFICIENT OF VARIATION 13.9 (11.5-15.0); RED BLOOD CELL COUNT(AUTO) 4.66 MIL/uL (4.0-5.2); WHITE BLOOD COUNT (AUTO) 9.4 K/uL (4.3-11.0)
--- NOTE | 2017-07-19 13:31 | NUR ---
CALLED DR AMARO'S AFTER HOURS LINE. HE IS NOT VETERANS SERVICE OFFICER AT THIS TIME.
[2017-07-19 13:32] LABS: CREATININE 1.4 mg/dL (0.6-1.3); POTASSIUM 4.2 mmol/L (3.5-5.1)
[2017-07-19 13:36] LABS: INR 0.95 (0.87-1.13); PROTHROMBIN TIME 9.9 SECS (9.5-12.7)
[2017-07-19] MEDS ORDERED: FENTANYL PF 100MCG/2ML AMPUL ONE (14:19)
[2017-07-19] MEDS ORDERED: MIDAZOLAM HCL 5 MG/5ML VIAL ONE (14:20)
--- NOTE | 2017-07-19 14:54 | NUR ---
Called report to Lucila.
[2017-07-19] MEDS ORDERED: ONDANSETRON HCL/PF 4 MG/2 ML VIAL IVP PRN (15:00)
[2017-07-19] MEDS ORDERED: MAG HYDROX/AL HYDROX/SIMETH 30 ML UDC PO PRN (15:00)
[2017-07-19] MEDS ORDERED: HYDROCODONE/APAP 5/325MG 1 EACH TABLET PO PRN (15:00)
[2017-07-19] MEDS ORDERED: ZOLPIDEM TARTRATE 5 MG TABLET PO PRN (15:00)
[2017-07-19] MEDS ORDERED: HYDROMORPHONE INJ 2 MG/ML DISP.SYRIN IV PRN (15:00)
[2017-07-19] MEDS ORDERED: MAGNESIUM HYDROXIDE 30 ML UDC PO PRN (15:00)
[2017-07-19] MEDS ORDERED: Z GUARD REMEDY 2 OZ OINT TP PRN (15:00)
--- NOTE | 2017-07-19 15:00 | NUR ---
MS VICE PRESIDENT OF FINANCE PATIENT BROUGHT IN VIA WHEELCHAIR FROM ER DEPT. PATIENT ADMITTED FOR SHOULDER DISLOCATION, RIGHT ARM SLING IN PLACE. PATIENT IS A/O X2-3, FORGETFUL. MADE COMFORTABLE IN BED, VS TAKEN AND RECORDED. PLACE CALL LIGHT WITHIN REACH. BED LOW AND LOCKED, SIDE RAILS UP X2. WILL CONT TO MONITOR.
[2017-07-19] MEDS: IV NS 0.9% 1,000 ML IV PRN (15:18)
[2017-07-19 15:23] VITALS: BP 149/83
--- NOTE | 2017-07-19 15:30 | NUR ---
PATIENT IN BED, GARBLED SPEECH. SKIN INTACT, IVC IN LEFT HAND G20 PATENT AND INTACT, FLUSHES WELL. PATIENT TO HAVE SURGERY IN AM PER FURNACE HAND, AWAITING FOR ORDERS. CALLED YOVANI FRANCOISE PATIENTS SISTER, LEFT MESSAGE TO HER VOICEMAIL
[2017-07-19 16:00] VITALS: BP 149/83
--- NOTE | 2017-07-19 18:29 | NUR ---
MS RN CLOSING NOTES PATIENT IN BED, A/O X2. PATIENT IS ON NPO ORDERED. IVC IN LEFT HAND G 20 PATENT AND INTACT, IVF NS INFUSING AT 75ML/HR, TOLERATING WELL. RIGHT ARM SLING IN PLACE, NO C/O PAIN AT THIS TIME, APPEARS COMFORTABLE IN BED. CALL LIGHT WITHIN REACH. WILL ENDORSE TO WET MACHINE TENDER RN FOR SERVANDO.
--- NOTE | 2017-07-19 19:20 | NUR ---
MSRN AWAKE, NO NEEDS FOR NOW, LIMITED VERBAL. KEPT COMFORTABLE. NO SOB, PAINFREE, ARM SLING MAINTAINED. SAFETY PRECAUTIONS RIMINDED, NEEDS FURTHER INSTRUCTIONS. FREQ OBSERVATION.
--- NOTE | 2017-07-19 19:20 | NUR ---
PATIENT TO HAVE SURGERY IN AM RIGHT SHOULDER CLOSED REDUCTION BY DR. LOZANO. CALLED SPOKE TO YOVANI FRANCOISE, SISTER WHO CONSENTED THE PROCEDURE, WITNESSED BY ANOTHER RN, LIZY. CONSENT FORM PLACE IN THE CHART.
[2017-07-19 20:00] VITALS: BP 149/78
--- NOTE | 2017-07-19 20:00 | NUR ---
MSRN SEEN BY DR. LOZANO, FOR SURGERY IN EARLY AM. CONSENTED BY SISTER YOVANI. MD SHETH.
--- NOTE | 2017-07-20 03:45 | NUR ---
MSRN AWAKENED, NEEDS ATTENDED. NPO MAINTAINED.
[2017-07-20 04:14] LABS: BASOPHILS % (AUTO) 0.4 % (0.0-2.0); EOSINOPHILS # (AUTO) 0.4 /CMM (0.0-0.7); EOSINOPHILS % (AUTO) 6.5 % (0.0-6.0); HEMATOCRIT 39 % (33-45); HEMOGLOBIN 13.3 g/dL (11.5-14.8); LYMPHOCYTES # (AUTO) 1.5 /CMM (0.8-4.8); LYMPHOCYTES % (AUTO) 21.7 % (20.0-44.0); MEAN CORPUSCULAR HEMOGLOBIN 29 PG (26.0-33.0); MEAN CORPUSCULAR HGB CONC 34 g/dl (31.0-36.0); MEAN CORPUSCULAR VOLUME 87 fL (82-100); MONOCYTES # (AUTO) 0.5 /CMM (0.1-1.30); MONOCYTES % (AUTO) 7.4 % (2.0-12.0); NEUTROPHILS # (AUTO) 4.4 /CMM (1.8-8.9); PLATELET COUNT (AUTO) 228 /CMM (150-450); RDW COEFFICIENT OF VARIATION 14.7 (11.5-15.0); RED BLOOD CELL COUNT(AUTO) 4.54 MIL/uL (4.0-5.2); WHITE BLOOD COUNT (AUTO) 6.8 K/uL (4.3-11.0)
[2017-07-20] MEDS: IV NS 0.9% 1,000 ML IV PRN ×2 (04:17→21:36)
[2017-07-20 04:30] LABS: ALBUMIN 2.9 g/dL (3.4-5.0); BILIRUBIN,TOTAL 0.4 mg/dL (0.2-1.0); CALCIUM, SERUM 9.1 mg/dL (8.5-10.1); CREATININE 1.5 mg/dL (0.6-1.3); PHOSPHORUS 3.7 mg/dL (2.5-4.9); POTASSIUM 3.7 mmol/L (3.5-5.1); TOTAL PROTEIN, SERUM 7.1 g/dL (6.4-8.2)
[2017-07-20] MEDS ORDERED: ANESTHESIA TRAY IN PYXIS 1 EA TRAY MC ONE (06:05)
--- NOTE | 2017-07-20 06:40 | NUR ---
MSRN WENT FOR SURGERY VIA BED.
[2017-07-20] MEDS ORDERED: MIDAZOLAM HCL 2 MG/2ML VIAL ONE (06:51)
--- NOTE | 2017-07-20 07:05 | NUR ---
MS RN NOTES RECEIVED REPORT FROM NIGHT RN, PATIENT IS AT THE OR FOR SURGERY-RIGHT SHOULDER CLOSED REDUCTION BY DR. LOZANO.
--- NOTE | 2017-07-20 07:30 | NUR ---
MSRN BACK FROM SURGERY. RN AWARE.
--- NOTE | 2017-07-20 07:46 | NUR ---
PATIENT IS BACK FROM SURGERY-RIGHT SHOULDER CLOSED REDUCTION BY DR. LOZANO, MADE COMFORTABLE IN BED, RUE ARM SLING IN PLACE, NWB RUE ORDERED. PATIENT CAN HAVE DIET PER DR. LOZANO. WILL CONT TO MONITOR PATIENT CLOSELY.
[2017-07-20] MEDS: ACETAMINOPHEN 325 MG TABLET PO PRN ×2 (07:48→21:50)
[2017-07-20 08:00] VITALS: BP 123/77
[2017-07-20] MEDS ORDERED: AZIT250T13 PO (08:27)
[2017-07-20] MEDS ORDERED: NITR0.4T48 SL (08:27)
[2017-07-20] MEDS ORDERED: ESCI20TA PO (08:27)
[2017-07-20] MEDS ORDERED: RISP3TAB14 PO (08:27)
[2017-07-20] MEDS ORDERED: DOCU100C36 PO (08:27)
[2017-07-20] MEDS ORDERED: PANT40TA2 PO (08:27)
[2017-07-20] MEDS ORDERED: IBUPROFEN 400 MG TABLET PO PRN (12:00)
[2017-07-20 16:00] VITALS: BP 130/70
--- NOTE | 2017-07-20 18:03 | NUR ---
MS RN CLOSING NOTES PATIENT IN BED, A/O X2. BREATHING EVEN AND NON LABORED, ON ROOM AIR. IVC IN LEFT HAND PATENT AND INTACT, IVF NS INFUSING AT 75ML/HR, TOLERATING WELL. POST SURGERY TODAY RIGHT SHOULDER CLOSED REDUCTION BY DR. LOZANO, RUE SLING IN PLACE. NWB RUE ORDERED. PATIENT IS SEEN BY DR. ONEAL TODAY, MD IS AWARE OF PATIENTS HOME MEDICATION FOR REVIEW. CALL LIGHT WITHIN REACH, INSTRUCTED TO USE CALL LIGHT IF SHE NEEDS ASSISTANCE, VERBALIZED UNDERSTANDING. WILL ENDORSE TO [employer] MEMBER RN FOR SERVANDO.
--- NOTE | 2017-07-20 19:40 | NUR ---
MSRN FULLY AWAKE, HAD RIGHT SHOULDER CLOSEL REDUCTION THIS MORNING. MAINTAINED RIGHT ARM SLING, NWB PER ORDERS. KEP COMFORTABLE, PRESENT IVF INFUSING WELL. PAIN TOLERABLE FOR NOW.
[2017-07-20 20:09] VITALS: BP 132/70
--- NOTE | 2017-07-20 23:00 | NUR ---
MSRN WAS MEDICATED WITH 2 TABS OF TYLENOL FOR RIGHT SHOULDER PAIN. REPOSITIONED.
--- NOTE | 2017-07-21 03:45 | NUR ---
SOLEDAD MOVED TO ROOM 207-2 VIA BED WITH ALL PERSONAL BELONGINGS
--- NOTE | 2017-07-21 06:30 | NUR ---
MSRN ASSISTED TO BSC, VOIDED FREELY.
[2017-07-21 08:00] VITALS: BP_SYST 126; BP_SYST 142; BP_DIAS 49; BP_DIAS 69
--- NOTE | 2017-07-21 11:30 | NUR ---
MS/RN S/B Dr Barnes Seen by Dr Barnes - patient to be discharged back to assisted living facility.
--- NOTE | 2017-07-21 13:30 | NUR ---
MS/parts runner Patient discharged to assisted living facility in stable condition. Heplock and name bands removed, exit care provided to health care facilities inspector from facility. Copies made of prescription along with medical record. Escorted to main lobby by TRAM.
== END 2017-07-21 13:30 | disposition home health service (06) | DRG 563 ==
LOC: ER 10:35 → MEDSG2 14:31
PROVIDERS: ADMIT Internal Medicine; ATTEND Internal Medicine
PROC: 0RSJXZZ Reposition Right Shoulder Joint, External Approach (ICD-10-PCS; principal; 2017-07-20 07:00)
DX: S43.014A Anterior dislocation of right humerus, initial encounter (principal); E44.1 Mild protein-calorie malnutrition; E66.01 Morbid (severe) obesity due to excess calories; F20.9 Schizophrenia, unspecified; E03.9 Hypothyroidism, unspecified; I10 Essential (primary) hypertension; I25.10 Atherosclerotic heart disease of native coronary artery without angina pectoris; Z79.82 Long term (current) use of aspirin; Z79.899 Other long term (current) drug therapy; Z85.3 Personal history of malignant neoplasm of breast; Z95.0 Presence of cardiac pacemaker; M19.90 Unspecified osteoarthritis, unspecified site; Z88.8 Allergy status to other drugs, medicaments and biological substances; F09 Unspecified mental disorder due to known physiological condition; F41.9 Anxiety disorder, unspecified; X58.XXXA Exposure to other specified factors, initial encounter; Y92.129 Unspecified place in nursing home as the place of occurrence of the external cause
CPT/HCPCS: 36415; 71045-TC; 73020; 73030-TC; 80048-TC; 80053-TC; 80061-TC; 83735-TC; 84100-TC; 84703-TC; 85025-TC; 85730-TC; 86850-TC; 87081-TC; A4606; J2250; J3010; J7030; Z7610

== ENCOUNTER 2017-07-24 13:39 | Outpatient (CLI) | payer MEDICARE ==
[~2017-07-24 13:39] MED LIST changes: -ACET500C4 PO; +AZIT250T13 PO; -BENZ1TAB7 PO; +DOCU100C36 PO; +ESCI20TA PO; +NITR0.4T48 SL; +PANT40TA2 PO; -RISP0.2515 PO; +RISP3TAB14 PO; -TAMO20TA4 PO
[2017-07-24 14:36] VITALS: BP 97/61
== END 2017-07-24 23:59 | disposition home or self-care (01) ==
LOC: MSC 13:39
PROVIDERS: ATTEND Internal Medicine
DX: I49.9 Cardiac arrhythmia, unspecified (principal); M25.511 Pain in right shoulder; I10 Essential (primary) hypertension; E03.9 Hypothyroidism, unspecified; F20.9 Schizophrenia, unspecified; M19.90 Unspecified osteoarthritis, unspecified site; F41.9 Anxiety disorder, unspecified; Z95.0 Presence of cardiac pacemaker; Z98.890 Other specified postprocedural states; Z85.3 Personal history of malignant neoplasm of breast

== ENCOUNTER 2017-08-16 18:32 | Emergency (ER) | payer MEDICARE ==
[~2017-08-16] VITALS: Ht 170.2 cm; Wt 108.9 kg
--- NOTE | 2017-08-16 18:35 | NUR ---
C/O R SHOULDER BLADE PAIN, DENIES FALL, HX OF SHOULDER DISLOCATION 1 MONTH , NAD NOTED, VSS, RESP EVEN AND UNLABORED, PT WAS PUT ON MONITOR, WAITING FOR MD BUSH.
[2017-08-16] MEDS ORDERED: RISP0.2515 PO (18:57)
[2017-08-16] MEDS ORDERED: TEMA15CA PO (18:57)
[2017-08-16] MEDS ORDERED: GUAI5SYR PO (18:57)
[2017-08-16] MEDS ORDERED: METO25TA20 PO (18:57)
[2017-08-16] MEDS ORDERED: MIDAZOLAM HCL 2 MG/2ML VIAL IV ONE (19:30)
[2017-08-16] MEDS ORDERED: FENTANYL PF 100MCG/2ML AMPUL IV ONE (19:30)
[2017-08-16] MEDS ORDERED: MIDAZOLAM HCL 2 MG/2ML VIAL ONE (19:44)
[2017-08-16] MEDS ORDERED: FENTANYL PF 100MCG/2ML AMPUL ONE (19:44)
[2017-08-16] MEDS ORDERED: MIDAZOLAM 50 MG/10 ML VIAL ONE (19:49)
--- NOTE | 2017-08-16 20:30 | NUR ---
VERSED 2MG VIAL WAS PULLED FROM LIZY OWUSU'S ACCOUNT AND WAS RETURNED TO EMILY OWUSU'S ACCOUNT [id number].
--- NOTE | 2017-08-16 21:04 | NUR ---
MODERATION SEDATION PROCEDURE FENTANYL AND VERSED ADMINISTERED THE DIRECT SUPERVISION DR WATKINS. FENTANYL 50MCG GIVEN AT 2043, VERSED 5MG GIVEN AT 2045, FENTANYL 50MCG GIVEN AT 2047. 40 MG OF VERSED WASTED AND WITNESSED BY CHERYLE Song, CHARGE NURSE. SEE INTERVENTION DOCUMETATION Addendum: 08/16/17 at 2111 by RONALD VERSED 5MG GIVEN AT 2045
--- NOTE | 2017-08-16 22:08 | NUR ---
CALLED [facility] FOR TRANSPORT ETA OF 30 MINS WAS GIVEN TRIP#[id number]
[2017-08-16] MEDS ORDERED: HYDROCODONE/APAP 5/325MG 1 EACH TABLET ONE (22:46)
[2017-08-16] MEDS ORDERED: HYDROCODONE/APAP 5/325MG 1 EACH TABLET PO ONE (23:00)
[2017-08-16 23:02] VITALS: BP 127/75
--- NOTE | 2017-08-16 23:03 | NUR ---
Patient discharged to comfort home in stable condition. Written and verbal after care instructions given. Patient verbalizes understanding of instruction.IV removed. Catheter intact and site benign. Pressure and 4x4 applied to site. No bleeding noted.
== END 2017-08-16 23:07 | disposition home or self-care (01) ==
LOC: ER 18:34
DX: M24.411 Recurrent dislocation, right shoulder (principal); G89.29 Other chronic pain; I10 Essential (primary) hypertension; Z79.82 Long term (current) use of aspirin; Z85.3 Personal history of malignant neoplasm of breast; Z88.8 Allergy status to other drugs, medicaments and biological substances
CPT/HCPCS: 23650; 73030 ×3; 99152; 99285; A4606; J2250 ×2; J3010; Z7610

== ENCOUNTER 2017-10-21 00:50 | Emergency (ER) | payer MEDICARE, MEDICAID ==
[~2017-10-21] VITALS: Ht 165.1 cm; Wt 104.3 kg
[~2017-10-21 00:50] MED LIST changes: -AZIT250T13 PO; -CLON1TAB4 PO; +CLON1TAB5 PO; +GUAI5SYR PO; +METO25TA20 PO; +RISP0.2515 PO; -RISP3TAB14 PO; +TEMA15CA PO
--- NOTE | 2017-10-21 00:50 | NUR ---
"RT ARM/SHOULDER PAIN WHILE LYING IN BED"; DENIES TRAUMA. NO SOB PAIN 12/21 NO N/V. VSS NAD A/OX3 ABLE TO MAKE NEEDS KNOWN. WILL CONTINUE TO MONITOR FOR ANY CHANGES DURING THE SHIFT.
[2017-10-21] MEDS ORDERED: HYDROCODONE/APAP 10/325MG 1 EA TABLET ONE (01:58)
[2017-10-21] MEDS ORDERED: ACETAMINOPHEN ES 500 MG TABLET ONE (01:59)
[2017-10-21] MEDS ORDERED: ONDANSETRON 4 MG TAB.RAPDIS ONE (01:59)
[2017-10-21] MEDS: HYDROCODONE/APAP 10/325MG 1 EA TABLET PO ONE (02:02)
[2017-10-21] MEDS: ONDANSETRON 4 MG TAB.RAPDIS SL ONE (02:02)
[2017-10-21] MEDS: ACETAMINOPHEN ES 500 MG TABLET PO ONE (02:02)
--- NOTE | 2017-10-21 02:30 | NUR ---
RIVER RAT AT BEDSIDE
[2017-10-21] MEDS ORDERED: ETOMIDATE 2 MG/ML VIAL ONE (02:59)
--- NOTE | 2017-10-21 03:20 | NUR ---
ER JORJE PARKER RN, RT AT BEDSIDE FOR CONSCIOUS SEDATION
[2017-10-21] MEDS ORDERED: ALBUTEROL FS 2.5 MG/3 ML VIAL.NEB ONE (03:30)
--- NOTE | 2017-10-21 03:30 | NUR ---
PROCEDURE FINISHED. ER MD ALAMO PER ORDER ADMINISTERED 10MH OF ETOMIDATE
[2017-10-21] MEDS: ALBUTEROL FS 2.5 MG/3 ML VIAL.NEB NEB ONE (03:36)
[2017-10-21] MEDS: ETOMIDATE 2 MG/ML VIAL IV ONE (03:42)
--- NOTE | 2017-10-21 04:54 | NUR ---
REPORT GIVEN TO ELVER AT [facility]
[2017-10-21 05:01] VITALS: BP 165/80
== END 2017-10-21 05:02 | disposition home or self-care (01) ==
LOC: ER 00:52
DX: S43.014A Anterior dislocation of right humerus, initial encounter (principal); E03.9 Hypothyroidism, unspecified; F32.9 Major depressive disorder, single episode, unspecified; G89.29 Other chronic pain; I10 Essential (primary) hypertension; Z79.82 Long term (current) use of aspirin; Z85.3 Personal history of malignant neoplasm of breast; Z88.8 Allergy status to other drugs, medicaments and biological substances; X58.XXXA Exposure to other specified factors, initial encounter; Y93.89 Activity, other specified; Y92.89 Other specified places as the place of occurrence of the external cause; Y99.8 Other external cause status
CPT/HCPCS: 73020; 73030-TC; 73060-TC; 73090-TC; A4606; J3490; Q0162; Z7610

== ENCOUNTER 2017-12-10 13:10 | Emergency (ER) | payer MEDICAID, MEDICARE ==
[~2017-12-10] VITALS: Ht 175.3 cm; Wt 136.1 kg
--- NOTE | 2017-12-10 13:15 | NUR ---
BRITTON BURLESON FROM [facility] C/O R ARM PAIN AND SWELLING. A/O X 2. BREATHING EVEN AND UNLABOED. NO SOB, NAD, VITALS STABLE. RIGHT ARM WARM AND DRY, NO REDNESS NOTED. SAFETY AND COMFORT MEASURES IN PLACE. AWAITING MD ORDERS.
--- NOTE | 2017-12-10 14:35 | NUR ---
NEW IV STARTED ON LAC. 20G.
[2017-12-10 14:46] LABS: BASOPHILS % (AUTO) 0.3 % (0.0-2.0); EOSINOPHILS % (AUTO) 10.2 % (0.0-6.0); HEMATOCRIT 41 % (33-45); HEMOGLOBIN 13.6 g/dL (11.5-14.8); MEAN CORPUSCULAR HGB CONC 34 g/dl (31.0-36.0); MEAN CORPUSCULAR VOLUME 86 fL (82-100); MONOCYTES # (AUTO) 0.4 /CMM (0.1-1.30); MONOCYTES % (AUTO) 5.8 % (2.0-12.0); NEUTROPHILS # (AUTO) 5.3 /CMM (1.8-8.9); NEUTROPHILS % (AUTO) 69.7 % (43.0-81.0); PLATELET COUNT (AUTO) 263 /CMM (150-450); RDW COEFFICIENT OF VARIATION 14.5 (11.5-15.0); WHITE BLOOD COUNT (AUTO) 7.5 K/uL (4.3-11.0)
[2017-12-10] MEDS ORDERED: ETOMIDATE 2 MG/ML VIAL ONE (14:50)
--- NOTE | 2017-12-10 14:56 | NUR ---
MD AT BEDSIDE, WITH RT AND RN FOR RIGHT SHOULDER CLOSED REDUCTION. ETOMIDATE 10MG GIVEN VIA IV LAC, 20G.
[2017-12-10 14:58] LABS: CREATININE 1.6 mg/dL (0.6-1.3); POTASSIUM 3.8 mmol/L (3.5-5.1)
[2017-12-10] MEDS ORDERED: ETOMIDATE 2 MG/ML VIAL IV ONE (15:00)
[2017-12-10 15:01] LABS: INR 0.95 (0.85-1.15)
--- NOTE | 2017-12-10 15:05 | NUR ---
PATIENT AWAKE POST REDUCTION AND BREATHING EVEN AND UNLABORED. VITALS STABLE. SLING IN PLACE ON RIGHT ARM. WILL CONTINUE TO MONITOR.
--- NOTE | 2017-12-10 15:28 | NUR ---
TRANSPORT CALLED SPOKE WITH JUN SANTOYO IS [id number] TRIP [id number]
--- NOTE | 2017-12-10 16:15 | NUR ---
IV removed. Catheter intact and site benign. Pressure and 4x4 applied to site. No bleeding noted. Patient discharged to home in stable condition. Written and verbal after care instructions given. Patient verbalizes understanding of instruction. Addendum: 12/10/17 at 1623 by MIREILLE REPORT GIVEN TO EMT AT BEDSIDE. PATIENT DISCHARGE BACK TO SNF
[2017-12-10 16:18] VITALS: BP 138/82
== END 2017-12-10 16:15 ==
LOC: ER 13:15
DX: S43.014A Anterior dislocation of right humerus, initial encounter (principal); E03.9 Hypothyroidism, unspecified; F32.9 Major depressive disorder, single episode, unspecified; G89.29 Other chronic pain; I10 Essential (primary) hypertension; Z79.82 Long term (current) use of aspirin; Z85.3 Personal history of malignant neoplasm of breast; X58.XXXA Exposure to other specified factors, initial encounter; Y93.89 Activity, other specified; Y92.89 Other specified places as the place of occurrence of the external cause; Y99.8 Other external cause status
CPT/HCPCS: 23650; 36415; 71045; 73020 ×2; 80048; 85025; 85730; 93005; 99152; 99285; A4606; J3490; J7030; Z7610

== ENCOUNTER 2018-02-23 21:04 | Emergency (ER) | payer MEDICARE ==
[~2018-02-23] VITALS: Ht 172.7 cm; Wt 117.9 kg
--- NOTE | 2018-02-23 21:45 | NUR ---
PATIENT BIB AMBULANCE. PATIENT WITH CHIEF COMPLAINT OF RIGHT SHOULDER PAIN 8/10, SHARP. LIMITED RANGE OF MOTION DUE TO PAIN. NO REDNESS NOTED. PATIENT STATES SHE WAS LAYING ON HER RIGHT SIDE, AND THEN THE PAIN STARTED, DENIES ANY TRAUMA
[2018-02-23] MEDS ORDERED: MORPHINE SULFATE INJ 2 MG/ML DISP.SYRIN ONE (22:49)
[2018-02-23] MEDS ORDERED: MORPHINE SULFATE INJ 4 MG/ML DISP.SYRIN ONE (22:49)
[2018-02-23] MEDS ORDERED: ONDANSETRON 4 MG TAB.RAPDIS ONE (22:50)
[2018-02-23] MEDS ORDERED: ONDANSETRON 4 MG TAB.RAPDIS PO ONE (23:00)
[2018-02-23] MEDS ORDERED: MORPHINE SULFATE INJ 2 MG/ML DISP.SYRIN IM ONE (23:00)
--- NOTE | 2018-02-23 23:00 | NUR ---
PATIENT MEDICATED ORDERED
[2018-02-24] MEDS ORDERED: HYDROMORPHONE INJ 2 MG/ML DISP.SYRIN ONE (00:22)
[2018-02-24] MEDS ORDERED: PROPOFOL 20 ML IV ONE (01:19)
[2018-02-24] MEDS ORDERED: MORPHINE SULFATE INJ 4 MG/ML DISP.SYRIN ONE (01:20)
--- NOTE | 2018-02-24 03:01 | NUR ---
STARTING TIME 230 END TIME 300 PATIENT S/P RIGHT SHOULDER REDUCTION WITH CONSCIOUS SEDATION AT BEDSIDE, PERFORMED BY DR VILLANUEVA. PATIENT TOLERATED PROCEDURE WELL. PLACEMENT CONFIRMED WITH XRAY
--- NOTE | 2018-02-24 03:26 | NUR ---
AMBULANCE STAFF AT BEDSIDE. ALL DISCHARGE PAPERWORK DISCUSSED WITH THE PATIENT, WHO VERBALIZES UNDERSTANDING. PATIENT LEFT ER IN STABLE CONDITION VIA GURNEY
[2018-02-24 03:33] VITALS: BP 142/82
== END 2018-02-24 03:35 ==
LOC: ER 21:10
DX: S43.014A Anterior dislocation of right humerus, initial encounter (principal); F20.9 Schizophrenia, unspecified; I10 Essential (primary) hypertension; M19.90 Unspecified osteoarthritis, unspecified site; G47.00 Insomnia, unspecified; F32.9 Major depressive disorder, single episode, unspecified; E03.9 Hypothyroidism, unspecified; G89.29 Other chronic pain; Z85.3 Personal history of malignant neoplasm of breast; Z88.8 Allergy status to other drugs, medicaments and biological substances; Z79.82 Long term (current) use of aspirin; Z79.899 Other long term (current) drug therapy; X58.XXXA Exposure to other specified factors, initial encounter; Y93.89 Activity, other specified; Y92.89 Other specified places as the place of occurrence of the external cause; Y99.8 Other external cause status
CPT/HCPCS: 23650; 73020 ×2; 96372; 99284; A4606; J2270 ×3; J2704; J7030; Q0162; J1170; Z7610

== ENCOUNTER 2018-08-15 09:36 | Emergency (ER) | payer MEDICARE ==
[~2018-08-15] VITALS: Ht 167.6 cm; Wt 137.4 kg
[~2018-08-15 09:36] MED LIST changes: +CLON1TAB12 PO; -CLON1TAB5 PO
--- NOTE | 2018-08-15 10:30 | NUR ---
Prepped for sedation- Closed reduction of Right shoulder Caregiver - Paty signed consent See sedation documentation.
[2018-08-15] MEDS ORDERED: PROPOFOL 20 ML IV ONE (10:35)
[2018-08-15] MEDS ORDERED: ALBU8.5H8 IH (10:53)
[2018-08-15] MEDS ORDERED: FLUT10.62 IH (10:53)
[2018-08-15] MEDS ORDERED: ACET-2605 PO (10:53)
[2018-08-15] MEDS ORDERED: MELO-107 PO (10:53)
[2018-08-15] MEDS ORDERED: PROPOFOL 1,000 MG/100 ML BOTTLE IV ONE (11:00)
--- NOTE | 2018-08-15 11:00 | NUR ---
Post procedure PASS score-13. Back at baseline pt still asking "for pain meds before I go." Updated with plan of care
--- NOTE | 2018-08-15 12:28 | NUR ---
For discharge ACI given to caregiver- R shoulder on sling Discharge home in stable condition. No obvious distress No acute changes. VSS
[2018-08-15 12:30] VITALS: BP 132/65
== END 2018-08-15 12:31 | disposition home or self-care (01) ==
LOC: ER 09:39
DX: S43.084A Other dislocation of right shoulder joint, initial encounter (principal); R56.9 Unspecified convulsions; I10 Essential (primary) hypertension; G47.00 Insomnia, unspecified; F20.9 Schizophrenia, unspecified; E03.9 Hypothyroidism, unspecified; E78.00 Pure hypercholesterolemia, unspecified; Z88.8 Allergy status to other drugs, medicaments and biological substances; Z79.82 Long term (current) use of aspirin; Z85.3 Personal history of malignant neoplasm of breast; X58.XXXA Exposure to other specified factors, initial encounter; Y93.89 Activity, other specified; Y92.89 Other specified places as the place of occurrence of the external cause; Y99.8 Other external cause status
CPT/HCPCS: 23650; 73030 ×2; 99152; 99285; A4606; J2704; J7030; G0500

== ENCOUNTER 2018-09-29 13:34 | Inpatient (IN) | payer MEDICARE ==
[~2018-09-29] VITALS: Ht 172.7 cm; Wt 131.5 kg
[~2018-09-29 13:34] MED LIST changes: +ACET-2605 PO; +ALBU8.5H8 IH; +FLUT10.62 IH; -GUAI5SYR PO; +MELO-107 PO; -NITR0.4T48 SL; -PANT40TA2 PO
--- NOTE | 2018-09-29 13:49 | NUR ---
PATRICIA FROM [facility], C/O R SHOULDER PAIN 04/22 PS, A/OX2-3, BREATHING EVEN AND UNLABORED, NO SOB NOTED, AWAITING FOR MD BUSH.
[2018-09-29] MEDS ORDERED: ONDANSETRON HCL/PF 4 MG/2 ML VIAL ONE (14:19)
[2018-09-29] MEDS ORDERED: MORPHINE SULFATE INJ 4 MG/ML DISP.SYRIN ONE ×2 (14:20→18:14)
[2018-09-29] MEDS ORDERED: IV NS 0.9% 1,000 ML BAG IV ONE (14:30)
[2018-09-29] MEDS ORDERED: ONDANSETRON HCL/PF 4 MG/2 ML VIAL IV ONE (14:30)
[2018-09-29] MEDS ORDERED: ONDANSETRON HCL/PF 4 MG/2 ML VIAL IVP ONE (14:30)
[2018-09-29] MEDS ORDERED: MORPHINE SULFATE INJ 2 MG/ML DISP.SYRIN IV ONE ×2 (14:30→18:00)
[2018-09-29] MEDS ORDERED: PROPOFOL 0 ML IV ONE (14:44)
[2018-09-29] MEDS ORDERED: PROPOFOL 20 ML IV ONE (14:51)
--- NOTE | 2018-09-29 14:58 | NUR ---
PROPOFOL GIVEN BY DR. MOURA, DOSE OF 80MG. PATIENT MONITORED. RT AT BEDSIDE, MD, RN AT BEDSIDE. NO DISTRESS NOTED.
[2018-09-29] MEDS ORDERED: PROPOFOL 200 MG/20 ML VIAL IV ONE (15:00)
--- NOTE | 2018-09-29 15:11 | NUR ---
CALLED [facility] RE: CONSULT WITH [facility]
[2018-09-29 15:36] LABS: BASOPHILS % (AUTO) 0.6 % (0.0-2.0); EOSINOPHILS % (AUTO) 9.7 % (0.0-6.0); HEMATOCRIT 40 % (33-45); HEMOGLOBIN 13.1 g/dL (11.5-14.8); LYMPHOCYTES # (AUTO) 0.8 /CMM (0.8-4.8); LYMPHOCYTES % (AUTO) 11.4 % (20.0-44.0); MEAN CORPUSCULAR HGB CONC 33 g/dl (31.0-36.0); MEAN CORPUSCULAR VOLUME 93 fL (82-100); MONOCYTES # (AUTO) 0.5 /CMM (0.1-1.30); MONOCYTES % (AUTO) 6.8 % (2.0-12.0); NEUTROPHILS # (AUTO) 5.3 /CMM (1.8-8.9); NEUTROPHILS % (AUTO) 71.5 % (43.0-81.0); RED BLOOD CELL COUNT(AUTO) 4.29 MIL/uL (4.0-5.2); WHITE BLOOD COUNT (AUTO) 7.4 K/uL (4.3-11.0)
[2018-09-29 15:38] LABS: CALCIUM, SERUM 9.2 mg/dL (8.5-10.1); CREATININE 1.7 mg/dL (0.6-1.3); POTASSIUM 4.4 mmol/L (3.5-5.1)
[2018-09-29 15:41] LABS: ALBUMIN 3.3 g/dL (3.4-5.0); BILIRUBIN,TOTAL 0.2 mg/dL (0.2-1.0); TOTAL PROTEIN, SERUM 7.2 g/dL (6.4-8.2)
[2018-09-29 15:42] LABS: PLATELET COUNT (AUTO) 163 /CMM (150-450)
--- NOTE | 2018-09-29 15:56 | NUR ---
[facility] ON-CALL PAGED AGAIN THRU OFFICE
--- NOTE | 2018-09-29 16:28 | NUR ---
CALLED [facility] PAGED [facility] AGAIN.
--- NOTE | 2018-09-29 17:20 | NUR ---
ATTEMPTED TO CALL REPORT,NO ANSWER
--- NOTE | 2018-09-29 17:56 | NUR ---
REPORT GIVEN TO SHELIA RAY FOR SERVANDO
[2018-09-29] MEDS ORDERED: MORPHINE SULFATE INJ 2 MG/ML DISP.SYRIN ONE (18:14)
--- NOTE | 2018-09-29 18:34 | NUR ---
PATIENT TRANSFERRED TO ROOM 325-2 VIA [facility]. PATIENT A/OX2, IN STABLE CONDITION. ENDORSED TO RONNY RAY.
[2018-09-29 18:45] VITALS: BP 125/70
[2018-09-29] MEDS: IV D5/ 0.9% NACL 1,000 ML IV PRN (18:56)
[2018-09-29] MEDS ORDERED: MORPHINE SULFATE INJ 2 MG/ML DISP.SYRIN IV PRN (19:00)
[2018-09-29] MEDS ORDERED: ONDANSETRON HCL/PF 4 MG/2 ML VIAL IVP PRN (19:00)
[2018-09-29] MEDS ORDERED: ACETAMINOPHEN 325 MG TABLET PO PRN (19:00)
[2018-09-29] MEDS ORDERED: ALBUTEROL FS 2.5 MG/0.5 ML VIAL.NEB NEB PRN (19:30)
[2018-09-29 20:00] VITALS: BP 123/70
--- NOTE | 2018-09-29 20:00 | NUR ---
MANAGER E COMMERCE NOTES RECEIVED PATIENT AWAKE IN BED AND WATCHING TV WITH NO DISTRESS NOTED. CALL LIGHT WITHIN REACH. PERIPHERAL LINE INTACT AND PATENT. PRN NORCO 5/325MG 1 TAB GIVEN FOR C/O RIGHT SHOULDER PAIN 12/21. ENCOURAGED USE OF CALL LIGHT FOR ASSISTANCE AND VERBALIZED GOOD UNDERSTANDING. BED IN LOW LOCK SETTING. ALL BELONGINGS KEPT NEAR BEDSIDE. WILL CONTINUE TO MONITOR.
--- NOTE | 2018-09-29 20:01 | NUR ---
HEAD OF ACQUISITIONSOUTSOLE SKIVER NOTES RECEIVED PT AT 1830 VIA [facility]. TELEMONITORING SR TACHY AT 110S. MD ORDERS PLACED ON THE SYSTEM. REGULAR DIET, HAD DINNER. WILL BE NPO POST MIDNIGHT. VS 125/70, 83, 98.2, 18, 94% RA. ENDORSED TO INCOMING NURSE TO CONTINUE ADMISSION PROCESS AND PLAN OF CARE.
[2018-09-29] MEDS: HYDROCODONE/APAP 5/325MG 1 EACH TABLET PO PRN (20:09)
[2018-09-29] MEDS: QUETIAPINE FUMARATE 100 MG TABLET PO SCH (22:38)
[2018-09-29] MEDS: ATORVASTATIN 10 MG TABLET PO SCH (22:38)
[2018-09-29] MEDS: FLUTICASONE 110MCG 1 EA INHALER IH SCH (22:39)
[2018-09-29] MEDS: TEMAZEPAM 15 MG CAPSULE PO SCH (23:06)
[2018-09-30] VITALS (7 sets, daily range): BP systolic 130–157; BP diastolic 76–100
[2018-09-30] MEDS: IV D5/ 0.9% NACL 1,000 ML IV PRN (06:11)
--- NOTE | 2018-09-30 06:44 | NUR ---
ROPE MAKER NOTES PATIENT ASLEEP IN BED WITH NO DISTRESS NOTED. CALL LIGHT WITHIN REACH. NO FURTHER C/O PAIN OR DISCOMFORT. PERIPHERAL LINE INTACT AND PATENT. PATIENT S/E BY DR. OTERO WITH ORDER FOR RIGHT SHOULDER CLOSED REDUCTION IN OR TODAY SCHEDULED AT 1130AM. NPO STATUS OBSERVED AND MAINTAINED AT ALL TIMES. PATIENT VERBALIZED GOOD UNDERSTANDING OF TREATMENT PLAN. CONSENTS SIGNED. BED IN LOW LOCK SETTING. ALL BELONGINGS KEPT NEAR BEDSIDE. WILL ENDORSE TO ONCOMING SHIFT.
[2018-09-30 07:45] LABS: BASOPHILS % (AUTO) 0.7 % (0.0-2.0); EOSINOPHILS % (AUTO) 13.2 % (0.0-6.0); HEMATOCRIT 42 % (33-45); HEMOGLOBIN 13.6 g/dL (11.5-14.8); LYMPHOCYTES # (AUTO) 1.1 /CMM (0.8-4.8); LYMPHOCYTES % (AUTO) 16.2 % (20.0-44.0); MEAN CORPUSCULAR HGB CONC 33 g/dl (31.0-36.0); MEAN CORPUSCULAR VOLUME 97 fL (82-100); MONOCYTES # (AUTO) 0.7 /CMM (0.1-1.30); MONOCYTES % (AUTO) 10.4 % (2.0-12.0); NEUTROPHILS % (AUTO) 59.5 % (43.0-81.0); PLATELET COUNT (AUTO) 171 /CMM (150-450); RED BLOOD CELL COUNT(AUTO) 4.34 MIL/uL (4.0-5.2); WHITE BLOOD COUNT (AUTO) 6.7 K/uL (4.3-11.0)
[2018-09-30 07:51] LABS: CALCIUM, SERUM 9.6 mg/dL (8.5-10.1); CREATININE 1.5 mg/dL (0.6-1.3); POTASSIUM 4.7 mmol/L (3.5-5.1)
--- NOTE | 2018-09-30 08:00 | NUR ---
RN NOTES Received Patient in bed asleep with no signs and symptoms of distress. A/O x 4. Patient NPO d/t scheduled for surgery today at 11:30AM. Medications given. VS stable. Assisted Patient to restroom. Patient complaining of right shoulder pain. Unsteady gait. IV access on left AC infusing D5 NS 75ml/hr clean, dry and intact. Call light within reach. Will continue plan of care.
[2018-09-30] MEDS: HYDROCODONE/APAP 5/325MG 1 EACH TABLET PO PRN ×3 (08:31→18:45)
--- NOTE | 2018-09-30 08:31 | NUR ---
RN NOTES Administered [place] 5-325mg PO x 1 Tab per Patient request. Stated pain level of 6/10. VS stable. Will continue to monitor.
[2018-09-30] MEDS: LEVOTHYROXINE SODIUM 50 MCG TABLET PO SCH (08:33)
[2018-09-30] MEDS: PANTOPRAZOLE 40 MG TABLET.DR PO SCH (08:33)
[2018-09-30] MEDS: risperiDONE 1 MG TABLET PO SCH ×2 (08:36→17:25)
[2018-09-30] MEDS: TOPIRAMATE 25 MG TABLET PO SCH ×2 (08:39→17:25)
[2018-09-30] MEDS: METOPROLOL TARTRATE 25 MG TABLET PO SCH ×2 (09:00→17:32)
[2018-09-30] MEDS: clonazePAM 1 MG TABLET PO SCH ×2 (09:00→17:26)
[2018-09-30] MEDS: ASPIRIN EC 81 MG TABLET.DR PO SCH (09:00)
[2018-09-30] MEDS: ESCITALOPRAM OXALATE (10 MG) 10 MG TABLET PO SCH (09:00)
[2018-09-30] MEDS: DOCUSATE SODIUM 100 MG CAPSULE PO SCH ×2 (09:00→17:26)
[2018-09-30] MEDS: MELOXICAM 7.5 MG TABLET PO SCH (09:00)
--- NOTE | 2018-09-30 11:06 | NUR ---
RN NOTES Per Manager Med Surg, D/C TELE to [facility].
--- NOTE | 2018-09-30 11:30 | NUR ---
RN NOTES Patient picked up for surgery for right shoulder closed reduction at this time. VS stable. Consents signed.
[2018-09-30] MEDS: FLUTICASONE 110MCG 1 EA INHALER IH SCH ×2 (11:47→17:25)
[2018-09-30] MEDS ORDERED: SUCCINYLCHOLINE CHLORIDE 20 MG/ML VIAL ONE (11:51)
[2018-09-30] MEDS ORDERED: FENTANYL PF 100MCG/2ML AMPUL ONE (12:58)
--- NOTE | 2018-09-30 14:05 | NUR ---
rn notes patient back from surgery. a/o x3, has a right arm sling, also applied ice applicant, v/s taken stable. Administered narco 5/325 mg po prn for right shoulder pain 01/20 per patient request. call light within to reach. orders taken and carried out.
--- NOTE | 2018-09-30 18:21 | NUR ---
Patient resides at [facility] [phone]. Prior to admission, she was ambulatory and independent with adl's. She plan to return to [facility] after discharge. Addendum: 09/30/18 at 1821 by LILI KHOURY RN Amended: Links added.
--- NOTE | 2018-09-30 18:45 | NUR ---
RN NOTES ADMINISTERED NARCO 5/325 MG PO PRN FOR RIGHT SHOULDER PAIN 12/21 PER PATIENT REQUEST. V/S STABLE STABLE. CONTINUED MONITORING.
--- NOTE | 2018-09-30 19:08 | NUR ---
RN CLOSING NOTES Patient comfortable in bed with no signs and symptoms of distress. A/O x 4 with slight delay in verbal response. VS stable. IV site patent, clean, dry and intact on left hand 22g. IVF D5 NS running at 70ml/hr. Right arm sling placed. Call light within reach. Endorsed plan of care to night nurse.
--- NOTE | 2018-09-30 19:41 | NUR ---
RN NOTES Patient refuses to urinate d/t pain. Patient refuses bedpan, assist to bathroom, and bedside commode. Patient states, "I will hold in my pee." Endorsed to oncoming nurse.
--- NOTE | 2018-09-30 19:55 | NUR ---
RN NOTES RECEIVED PATIENT IN BED AWAKE. A/O X 4. NO SIGNS OF RESPIRATORY DISTRESS. DENIES SHORTNESS OF BREATH. IV SITES PATENT. PATIENT HAS DIAPER ON AND HAS NOT URINATED YET. SAFETY PRECAUTIONS IMPLEMENTED: CALL LIGHT WITHIN REACH, BED IN LOW POSITION, BED LOCKED, SIDERAILS UP X2. WILL CONTINUE TO MONITOR PATIENT THROUGHOUT THE SHIFT.
[2018-09-30] MEDS: QUETIAPINE FUMARATE 100 MG TABLET PO SCH (21:13)
[2018-09-30] MEDS: ATORVASTATIN 10 MG TABLET PO SCH (21:13)
[2018-09-30] MEDS: TEMAZEPAM 15 MG CAPSULE PO SCH (22:02)
--- NOTE | 2018-10-01 06:12 | NUR ---
RN NOTES: BLADDER SCAN PERFORMED RESULT IS [phone], PT C/O URGE TO URINATE BUT NO UO OBTAINED, CONTACTED DRAPERY AND UPHOLSTERY MEASURER MD, SPOKED WITH DR AMARO PER MD "DO BLADDER SCAN Q6HR, STRAIGHT CATHETER Q6HR PRN FOR 250 AND ABOVE"
--- NOTE | 2018-10-01 06:30 | NUR ---
RN NOTES: DARRYL CARE PROVIDED, STRAIGHT CATH PER MD ORDER, OBTAINED 900ML OF CONCENTRATED URINE. PT TOLERATED PROCEDURE WELL. NO ABDOMINAL DISTENTION NOTED, PT DENIES ANY PAIN
--- NOTE | 2018-10-01 06:52 | NUR ---
RN CLOSING NOTES: PT IN BED, AWAKE, REMAINS A/O X2-3, RIGHT SHOULDER SPLINT IN PLACED. PT ABLE TO MOVE HANDS, FINGERS, WITH GOOD CAPILLARY REFILL NOTED, RADIAL PULSE PALPABLE. IV ACCESS REMAINS PATENT AND FLUSHING WELL, ON HL. BLE OFFLOADED. VS REMAINS STABLE, NEEDS ATTENDED. SAFETY PRECAUTIONS FOR FALL REMAINS ENGAGED, CALL LIGHT IN REACH, WILL ENDORSE TO DAY RN FOR CONTINUITY OF CARE.
[2018-10-01 07:00] VITALS: BP 135/64
[2018-10-01 08:00] VITALS: BP 135/64
[2018-10-01 08:07] LABS: CALCIUM, SERUM 9.4 mg/dL (8.5-10.1); CREATININE 1.5 mg/dL (0.6-1.3); POTASSIUM 4.3 mmol/L (3.5-5.1)
[2018-10-01 08:16] LABS: BASOPHILS % (AUTO) 0.4 % (0.0-2.0); EOSINOPHILS % (AUTO) 12.3 % (0.0-6.0); HEMATOCRIT 38 % (33-45); HEMOGLOBIN 12.6 g/dL (11.5-14.8); LYMPHOCYTES # (AUTO) 0.9 /CMM (0.8-4.8); LYMPHOCYTES % (AUTO) 16.5 % (20.0-44.0); MEAN CORPUSCULAR HGB CONC 33 g/dl (31.0-36.0); MEAN CORPUSCULAR VOLUME 93 fL (82-100); MONOCYTES # (AUTO) 0.5 /CMM (0.1-1.30); MONOCYTES % (AUTO) 8.8 % (2.0-12.0); NEUTROPHILS # (AUTO) 3.3 /CMM (1.8-8.9); PLATELET COUNT (AUTO) 193 /CMM (150-450); RED BLOOD CELL COUNT(AUTO) 4.06 MIL/uL (4.0-5.2); WHITE BLOOD COUNT (AUTO) 5.4 K/uL (4.3-11.0)
[2018-10-01] MEDS: risperiDONE 1 MG TABLET PO SCH ×2 (08:48→16:35)
[2018-10-01] MEDS: MELOXICAM 7.5 MG TABLET PO SCH (08:48)
[2018-10-01] MEDS: ASPIRIN EC 81 MG TABLET.DR PO SCH (08:48)
[2018-10-01] MEDS: METOPROLOL TARTRATE 25 MG TABLET PO SCH ×2 (08:49→16:35)
[2018-10-01] MEDS: DOCUSATE SODIUM 100 MG CAPSULE PO SCH ×2 (08:49→16:34)
[2018-10-01] MEDS: clonazePAM 1 MG TABLET PO SCH ×2 (08:50→16:36)
[2018-10-01] MEDS: TOPIRAMATE 25 MG TABLET PO SCH ×2 (08:50→16:35)
[2018-10-01] MEDS: ESCITALOPRAM OXALATE (10 MG) 10 MG TABLET PO SCH (08:50)
[2018-10-01] MEDS: PANTOPRAZOLE 40 MG TABLET.DR PO SCH (08:53)
[2018-10-01] MEDS: FLUTICASONE 110MCG 1 EA INHALER IH SCH ×2 (08:53→16:36)
[2018-10-01] MEDS: LEVOTHYROXINE SODIUM 50 MCG TABLET PO SCH (08:53)
--- NOTE | 2018-10-01 12:30 | NUR ---
STRAIGHT CATH PER MD ORDER, OBTAINED 650ML OF CONCENTRATED URINE. NO ABDOMINAL DISTENTION NOTED, PT DENIES ANY PAIN.
[2018-10-01 16:00] VITALS: BP 133/87
--- NOTE | 2018-10-01 18:00 | NUR ---
BLADDER SCAN PERFORMED RESULT IS 240 ML.
--- NOTE | 2018-10-01 19:46 | NUR ---
PT IN BED, AWAKE, A/O X2-3, RIGHT SHOULDER SPLINT IN PLACED. IV ACCESS REMAINS PATENT AND FLUSHING WELL. VS REMAINS STABLE, NEEDS ATTENDED. SAFETY PRECAUTIONS FOR FALL IN PLACE, CALL LIGHT IN REACH, WILL ENDORSE TO NEXT SHIFT FOR CONTINUITY OF CARE.
--- NOTE | 2018-10-01 19:50 | NUR ---
MS/RN OPENING NOTES PT RECEIVED AWAKE, HOB ELEVATED. ON ROOM AIR, BREATHING EVEN AND UNLABORED. IN NO ACUTE DISTRESS. DENIES SOB AND PAIN AT THIS TIME. A/OX2. SLING TO RIGHT ARM IN PLACE. IV TO LEFT HAND PATENT AND INTACT. BED IN LOW/LOCKED POSITION WITH CALL LIGHT IN REACH. BILATERAL UPPER SIDE RAILS IN PLACE AND BED ALARM ON FOR SAFETY. WILL CONTINUE TO MONITOR
[2018-10-01 20:00] VITALS: BP 139/80
[2018-10-01] MEDS: ATORVASTATIN 10 MG TABLET PO SCH (21:36)
[2018-10-01] MEDS: QUETIAPINE FUMARATE 100 MG TABLET PO SCH (21:36)
--- NOTE | 2018-10-01 22:00 | NUR ---
MS/RN NOTES PT NOTED WITH WHEEZING. PT STATES SHE FEELS SHORT OF BREATH. PLACED ON 2L O2 VIA NC AND HOB ELEVATED. RT CALLED AND BREATHING TX PROVIDED.
[2018-10-01] MEDS: TEMAZEPAM 15 MG CAPSULE PO SCH (22:56)
--- NOTE | 2018-10-02 00:44 | NUR ---
MS/RN NOTES PT ASLEEP, BREATHING EVEN AND UNLABORED. HOB ELEVATED. IN NO ACUTE DISTRESS. WILL CONTINUE TO MONITOR
--- NOTE | 2018-10-02 04:40 | NUR ---
MS/RN NOTES DIAPER CHANGE PROVIDED. PT REQUESTING PAIN MEDICATION. WILL ADMINISTER ORDERED. ALL OTHER NEEDS MET AT THIS TIME.
[2018-10-02] MEDS: LEVOTHYROXINE SODIUM 50 MCG TABLET PO SCH (06:41)
[2018-10-02] MEDS: PANTOPRAZOLE 40 MG TABLET.DR PO SCH (06:41)
--- NOTE | 2018-10-02 06:50 | NUR ---
MS/RN CLOSING NOTES PT AWAKE. ON ROOM AIR, SPO2 96%. BREATHING EVEN AND UNLABORED. DENIES SOB AND PAIN AT THIS TIME. BLADDER SCAN THIS AM SHOWED 230CC RESIDUAL. ENCOURAGED PT TO VOID. SLING TO RIGHT ARM IN PLACE. IV TO LEFT HAND PATENT AND INTACT. TURNED/REPOSITIONED Q2H, HEELS OFFLOADED. BED IN LOW/LOCKED POSITION WITH CALL LIGHT IN REACH. BILATERAL UPPER SIDE RAILS IN PLACE AND HOB ELEVATED. WILL ENDORSE TO DAY SHIFT RN SERVANDO.
[2018-10-02 08:00] VITALS: BP 121/72
[2018-10-02] MEDS: risperiDONE 1 MG TABLET PO SCH (08:37)
[2018-10-02] MEDS: DOCUSATE SODIUM 100 MG CAPSULE PO SCH (08:37)
[2018-10-02] MEDS: ESCITALOPRAM OXALATE (10 MG) 10 MG TABLET PO SCH (08:37)
[2018-10-02] MEDS: TOPIRAMATE 25 MG TABLET PO SCH (08:37)
[2018-10-02 08:38] VITALS: BP 121/72
[2018-10-02] MEDS: METOPROLOL TARTRATE 25 MG TABLET PO SCH (08:38)
[2018-10-02] MEDS: MELOXICAM 7.5 MG TABLET PO SCH (08:38)
[2018-10-02] MEDS: ASPIRIN EC 81 MG TABLET.DR PO SCH (08:38)
[2018-10-02] MEDS: clonazePAM 1 MG TABLET PO SCH (08:38)
[2018-10-02] MEDS: FLUTICASONE 110MCG 1 EA INHALER IH SCH (08:39)
--- NOTE | 2018-10-02 14:45 | NUR ---
PATIENT D/C BY MD BACK TO ASSISTED LIVING.PATIENT ON ROOM AIR, SPO2 96%. BREATHING EVEN AND UNLABORED. DENIES SOB AND PAIN, VS ARE STABLE AND WITHIN NORMAL RANGE. ALERT AND ORIENTED X2. PATIENT ABLE TO WALK WITH ASSISTANCE. PT HAS ON RIGHT ARM SLING , STATUS POST R SHOULDER REDUCTION. SKIN INTACT. EDUCATION AND D/C INSTRUCTIONS PROVIDED TO ASSISTED LIVING STAFF ORTIZ; HE VERBALIZED UNDERSTANDING. MED RECONCILIATION AND PRESCRIPTION GIVEN TO ORTIZ. ALL BELONGINGS CHECKED AND WITH THE PATIENT. PATIENT UNABLE TO SIGH; VALUABLE FORM AND D/C INSTRUCTION FORM SIGNED BY RN AND WITNESSED BY KAREN RAY. IV LINE REMOVED, NO SWELLING/REDNESS NOTED. ID WRIST BAND REMOVED. PATIENT SAFELY TRANSFERRED TO [employer] CAR VIA WHEELCHAIR ACCOMPANIED WITH TRAM AND ORTIZ.
== END 2018-10-02 14:45 | DRG 562 ==
LOC: EDUNIT# 13:34 → ER 13:39 → TELE 18:02 → MED 09-30 13:40 → MEDSG2 10-01 17:45
PROVIDERS: ADMIT Legal Medicine; ATTEND Legal Medicine
PROC: 0RSJXZZ Reposition Right Shoulder Joint, External Approach (ICD-10-PCS; principal; 2018-09-30)
DX: M24.411 Recurrent dislocation, right shoulder (principal); N17.0 Acute kidney failure with tubular necrosis; Z68.41 Body mass index [BMI] 40.0-44.9, adult; I10 Essential (primary) hypertension; E78.5 Hyperlipidemia, unspecified; E03.9 Hypothyroidism, unspecified; N18.3 Chronic kidney disease, stage 3 (moderate); F29 Unspecified psychosis not due to a substance or known physiological condition; G40.909 Epilepsy, unspecified, not intractable, without status epilepticus; Z85.3 Personal history of malignant neoplasm of breast; E66.01 Morbid (severe) obesity due to excess calories; S43.014A Anterior dislocation of right humerus, initial encounter; W06.XXXA Fall from bed, initial encounter; Y92.092 Bedroom in other non-institutional residence as the place of occurrence of the external cause; Z79.51 Long term (current) use of inhaled steroids; Z79.82 Long term (current) use of aspirin; Z79.899 Other long term (current) drug therapy
CPT/HCPCS: 36415; 71045-TC; 73020; 80048-TC; 80053-TC; 84702-TC; 85025-TC; 85610-TC; 85730-TC; 87081-TC; G0378; G0500; J0330; J2270; J2405; J2704; J3010; J7030; J7042

== ENCOUNTER 2019-09-18 20:37 | Inpatient (IN) | payer MEDICARE, MEDICAID ==
[~2019-09-18] VITALS: Ht 172.7 cm; Wt 129.3 kg
--- NOTE | 2019-09-18 20:45 | NUR ---
PT AAOX4. BIBPA C/O R SHOULDER PAIN S/P CAREGIVER PULLING PT UP IN BED. PT ABLE TO SQUEEZE HAND. MD AT BEDSIDE FOR EVAL. NO ACUTE DISTRESS NOTED. VSS. WILL COTNINUE TO MONITOR.
--- NOTE | 2019-09-18 20:55 | NUR ---
XRAY AT BEDSIDE
--- NOTE | 2019-09-18 21:16 | NUR ---
ER SPOKE TO KRISTAL REGARDING PT ADMISSION.
--- NOTE | 2019-09-18 21:20 | NUR ---
CAREER DEVELOPER AT BEDSIDE FOR LABS. EMT AT BEDSIDE FOR EKG
[2019-09-18 21:31] LABS: BASOPHILS % (AUTO) 0.6 % (0.0-2.0); EOSINOPHILS % (AUTO) 10.5 % (0.0-6.0); HEMATOCRIT 40 % (33-45); HEMOGLOBIN 12.7 g/dL (11.5-14.8); LYMPHOCYTES # (AUTO) 1.1 /CMM (0.8-4.8); LYMPHOCYTES % (AUTO) 16.8 % (20.0-44.0); MEAN CORPUSCULAR HGB CONC 32 g/dl (31.0-36.0); MEAN CORPUSCULAR VOLUME 87 fL (82-100); MONOCYTES # (AUTO) 0.5 /CMM (0.1-1.30); MONOCYTES % (AUTO) 7.9 % (2.0-12.0); NEUTROPHILS # (AUTO) 4.2 /CMM (1.8-8.9); NEUTROPHILS % (AUTO) 64.2 % (43.0-81.0); PLATELET COUNT (AUTO) 217 /CMM (150-450); RED BLOOD CELL COUNT(AUTO) 4.57 MIL/uL (4.0-5.2); WHITE BLOOD COUNT (AUTO) 6.6 K/uL (4.3-11.0)
--- NOTE | 2019-09-18 21:35 | NUR ---
CALLED DR AMARO OFFICE, LILLIAN CASTELLANOS
--- NOTE | 2019-09-18 21:42 | NUR ---
Patient is resting comfortably in bed. Easily aroused. VSS.
[2019-09-18 21:49] LABS: CALCIUM, SERUM 9.1 mg/dL (8.5-10.1); CREATININE 1.4 mg/dL (0.6-1.3); POTASSIUM 3.5 mmol/L (3.5-5.1)
[2019-09-18] MEDS ORDERED: PALI6TAB PO (21:50)
[2019-09-18] MEDS ORDERED: AMLO5TAB9 PO (21:50)
[2019-09-18] MEDS ORDERED: NITR100C PO (21:50)
[2019-09-18] MEDS ORDERED: BUDE10.2 IH (21:50)
--- NOTE | 2019-09-18 21:57 | NUR ---
[address] [place] [address]
--- NOTE | 2019-09-18 22:04 | NUR ---
PAGED DR AMARO
--- NOTE | 2019-09-18 22:21 | NUR ---
REPORT GIVEN TO SYD RAY FOR SERVANDO
--- NOTE | 2019-09-18 22:33 | NUR ---
PAGED DR AMARO
--- NOTE | 2019-09-18 22:47 | NUR ---
RECEIVED CALL FROM NINA MIRELES TO ADMIT TO PANEL
--- NOTE | 2019-09-18 22:48 | NUR ---
PAGED CHERYLE GORDON DNP FOR ADMISSION
[2019-09-18 23:09] VITALS: BP 129/57
--- NOTE | 2019-09-18 23:10 | NUR ---
RN OPENING NOTES RECEIVED PATIENT FROM ER VIA JUA[facility]. A/OX3. NO SIGNS OF DISTRESS OR DISCOMFORT. BREATHING EVEN AND UNLABORED. IV ACCESS IN LAC, PATENT AND INTACT, NO SIGNS OF REDNESS OR INFILTRATION. ORIENTED PATIENT TO UNIT AND ROOM. BED IN LOW LOCKED POSITION WITH SIDE RAILS X2. CALL LIGHT WITHIN REACH. WILL CONTINUE TO MONITOR.
[2019-09-18] MEDS ORDERED: TEMAZEPAM 15 MG CAPSULE PO PRN (23:30)
[2019-09-18] MEDS ORDERED: ACETAMINOPHEN 325 MG TABLET PO PRN (23:30)
[2019-09-18] MEDS ORDERED: Z GUARD REMEDY 2 OZ OINT TP PRN (23:30)
[2019-09-18] MEDS ORDERED: ALBUTEROL FS 2.5 MG/3 ML VIAL.NEB NEB PRN (23:30)
[2019-09-18] MEDS ORDERED: MORPHINE SULFATE INJ 2 MG/ML DISP.SYRIN IV PRN (23:30)
[2019-09-18] MEDS ORDERED: ONDANSETRON HCL/PF 4 MG/2 ML VIAL IVP PRN (23:30)
[2019-09-19] MEDS ORDERED: diphenhydrAMINE HCL 50 MG/ML VIAL IV PRN
[2019-09-19] MEDS: MORPHINE SULFATE INJ 2 MG/ML DISP.SYRIN IV PRN ×2 (00:36→13:55)
--- NOTE | 2019-09-19 00:36 | NUR ---
RN NOTES ADMINISTERED MORPHINE 2MG ORDERED FOR R SHOULDER PAIN 10/10, AT PATIENT REQUEST. VSS. WILL CONTINUE TO MONITOR.
[2019-09-19 04:00] VITALS: BP 131/73
[2019-09-19 06:16] LABS: BASOPHILS % (AUTO) 0.7 % (0.0-2.0); EOSINOPHILS % (AUTO) 9.5 % (0.0-6.0); HEMATOCRIT 37 % (33-45); HEMOGLOBIN 11.9 g/dL (11.5-14.8); LYMPHOCYTES % (AUTO) 15.1 % (20.0-44.0); MEAN CORPUSCULAR HGB CONC 32 g/dl (31.0-36.0); MEAN CORPUSCULAR VOLUME 87 fL (82-100); MONOCYTES # (AUTO) 0.5 /CMM (0.1-1.30); MONOCYTES % (AUTO) 8.2 % (2.0-12.0); NEUTROPHILS # (AUTO) 4.4 /CMM (1.8-8.9); NEUTROPHILS % (AUTO) 66.5 % (43.0-81.0); PLATELET COUNT (AUTO) 198 /CMM (150-450); RED BLOOD CELL COUNT(AUTO) 4.29 MIL/uL (4.0-5.2); WHITE BLOOD COUNT (AUTO) 6.6 K/uL (4.3-11.0)
--- NOTE | 2019-09-19 06:49 | NUR ---
RN CLOSING NOTES PATIENT AWAKE IN BED. A/OX3. NO SIGNS OF DISTRESS OR DISCOMFORT. BREATHING EVEN AND UNLABORED. IV ACCESS IN LAC, PATENT AND INTACT, NO SIGNS OF REDNESS OR INFILTRATION. ALL NEEDS MET. NO SIGNIFICANT CHANGES THROUGH THE NIGHT. BED IN LOW LOCKED POSITION WITH SIDE RAILS X2. CALL LIGHT WITHIN REACH. WILL ENDORSE TO AM SHIFT FOR SERVANDO.
[2019-09-19 06:57] LABS: ALBUMIN 2.8 g/dL (3.4-5.0); BILIRUBIN,TOTAL 0.2 mg/dL (0.2-1.0); CALCIUM, SERUM 8.8 mg/dL (8.5-10.1); CREATININE 1.4 mg/dL (0.6-1.3); MAGNESIUM 2.3 mg/dL (1.8-2.4); PHOSPHORUS 3.6 mg/dL (2.5-4.9); POTASSIUM 3.4 mmol/L (3.5-5.1); THYROID STIMULATING HORMONE 3.341 uIU/mL (0.358-3.74); TOTAL PROTEIN, SERUM 6.5 g/dL (6.4-8.2)
--- NOTE | 2019-09-19 07:35 | NUR ---
RN OPENING NOTES RECEIVED PATIENT IN BED, A/O X3. VERBALLY RESPONSIVE AND ABLE TO MAKE NEEDS KNOWN. COMPLAINT OF PAIN ON HER R SHOULDER BUT PER PATIENT IT'S TOLERABLE . ON ROOM AIR, NO SOB NOTED. RESPIRATION EVEN AND UNLABORED. IV ACCESS ON LAC #20, S/L. NO SIGNS OF INFILTRATION NOTED. SAFETY MEASURES IN PLACE, CALL LIGHT WITHIN REACH. WILL CONTINUE TO MONITOR
[2019-09-19] MEDS ORDERED: BENZ0.5T43 PO (07:37)
[2019-09-19] MEDS ORDERED: MAGN400O6 PO (07:37)
[2019-09-19] MEDS ORDERED: BISA5TAB10 PO (07:37)
[2019-09-19] MEDS ORDERED: ALBU2.5V38 IH (07:37)
[2019-09-19] MEDS ORDERED: DOCU250C14 PO (07:37)
[2019-09-19 08:00] VITALS: BP 146/57
[2019-09-19] MEDS: POTASSIUM CL. PREMIX PERIPHER. 50 ML IV SCH ×2 (09:48→10:56)
--- NOTE | 2019-09-19 15:14 | NUR ---
RN NOTES NOTIFIED ELIZABETH GRIFFIN THAT PATIENT IS FOR [facility] CONSULT.
--- NOTE | 2019-09-19 15:50 | NUR ---
CLARIFY WITH DR. AMARO IF HE IS SEEING PT. TODAY PER DR. AMARO HE IS NOT FOLLOWING THIS PT. FOR A YEAR ALREADY FROM [facility],THUS ASSIGNED TO [facility],CALLED ADMITTING AND QUESTIONED WHY ASSIGN TO PREM ON PATIENTS LIST,PER ADMITTING THEY JUST FOLLOW WHAT ER STAFF TELL THEM,DR. PEREZ MADE AWARE PATIENT OFFICIALY UNDER [facility],PER DR. PEREZ HE IS NOT INHOSPITAL ANYMORE AND INFORMED ALSO COURY FROM [facility] IS COMING TO EVAL PATIENT.PER DR. PEREZ JUST FOLLOW [facility] RECOMMENDATION AND WILL SEE PATIENT IN AM.
--- NOTE | 2019-09-19 15:57 | NUR ---
END TRIMMER AVE AND NURSING SUP MADE AWARE.PER ALLIE WILL TRY REACH DR. RIVERA TO SEE PATIENT TODAY AND PER NURSING SUP LYNN WILL FOLLOW UP WITH COURY TO SEE PATIENT TODAY.
[2019-09-19 16:00] VITALS: BP 141/79
--- NOTE | 2019-09-19 16:06 | NUR ---
OBTAINED ORDER FOR SURGERY IN CLOSED REDUCTION RIGHT SHOULDER IN AM 0700 AND NEED MEDICAL CLAERANCE.PER AVE KELLEY NOTIFIED DR. PEREZ AND HE WILL LET DR. LUDWIG SEE PATIENT BEFORE 0700 FOR MEDICAL CLEARANCE.NURSINFG SUP MADE AWARE.
--- NOTE | 2019-09-19 17:54 | NUR ---
RN NOTES TRIED CALLING ROCIO HOPKINS (FATHER) TO GET A CONSENT BUT THE NUMBER ON FILE IS DISCONNECTED ALREADY. CALLED THE NEXT KIN, YOVANI OWUSU AND LEFT A MESSAGE TO CALL BACK HERE IN THE HOSPITAL.
--- NOTE | 2019-09-19 18:05 | NUR ---
RN NOTES CALLED LAB AND SPOKE WITH NOMI THAT URINE SAMPLE IS READY FOR DRAFTER HEATING AND VENTILATING
[2019-09-19] MEDS: clonazePAM 1 MG TABLET PO SCH (18:27)
[2019-09-19] MEDS: DOCUSATE SODIUM 250 MG CAPSULE PO SCH (18:28)
[2019-09-19] MEDS: TOPIRAMATE 25 MG TABLET PO SCH (18:28)
[2019-09-19] MEDS: AMLODIPINE BESYLATE 5 MG TABLET PO SCH (18:28)
[2019-09-19] MEDS ORDERED: ALBUTEROL FS 2.5 MG/3 ML VIAL.NEB IH PRN (18:30)
--- NOTE | 2019-09-19 18:35 | NUR ---
PATIENT SEEN AND EVALUATED BY DR. LUDWIG AND CLEARED FOR PROC[facility]URE [facility].
[2019-09-19] MEDS: IV NS 0.9% 1,000 ML IV PRN (18:37)
--- NOTE | 2019-09-19 19:13 | NUR ---
RN CLOSING NOTES CONSENT FOR THE PROCEDURE, BLOOD TRANSFUSION AND ANESTHESIA OBTAINED VIA TELEPHONE AND WAS WITNESSED BY 2 RNs.
[2019-09-19 19:31] LABS: APPEARANCE,URINE CLEAR (CLEAR); BILIRUBIN,URINE NEGATIVE (NEGATIVE); BLOOD, URINE NEGATIVE Ery/uL (NEGATIVE); COLOR,URINE YELLOW (YELLOW); KETONES,URINE TRACE (NEGATIVE); LEUKOCYTE ESTERASE ,URINE NEGATIVE (NEGATIVE); NITRITE, URINE NEGATIVE (NEGATIVE); PROTEIN,URINE NEGATIVE (NEGATIVE); UGLUCOSE NEGATIVE (NEGATIVE); UROBILINOGEN,URINE 0.2 EU/dL (0.2)
--- NOTE | 2019-09-19 19:34 | NUR ---
RN CLOSING NOTES PATIENT IN BED, RESTING COMFORTABLY. IN NO APPARENT DISTRESS NOTED. ON ROOM AIR. NO SOB NOTED. IV ACCESS ON L AC INTACT. NO SIGNS OF INFILTRATION. KEPT CLEAN AND DRY , ALL NEEDS MET. SAFETY MEASURES IN PLACED, CALL LIGHT WITHIN REACHED. ENDORSED TO PM RN FOR SERVANDO.
--- NOTE | 2019-09-19 19:40 | NUR ---
MS RN OPENING NOTES PATIENT SLEEPING IN BED, EASY TO AWAKEN. A/OX3. ON ROOM AIR. NO S/S OF ACUTE RESPIRATORY DISTRESS AND NO C/O PAIN AT THIS TIME. IV PRESENT ON LEFT AC, SIZE 20, INTACT & PATENT, NS RUNNING AT 100ML/HR. SAFETY MEASURES IN PLACE. BED LOCKED, ALARM ON, SEMI-SHIN'S POSITION, CALL LIGHT WITHIN REACH. WILL CONTINUE TO MONITOR.
[2019-09-19 19:45] LABS: BACTERIA,URINE 2+ /HPF (None Seen); RBC,URINE 0-2 /HPF (0-2); WBC,URINE 0-2 /HPF (0-3)
[2019-09-19 19:59] LABS: CREATININE, URINE 166.7 MG/DL (30.0-125.0); URINE TOTAL PROTEIN 19.7 mg/dL (0-11.9)
[2019-09-19 20:00] VITALS: BP 145/74
[2019-09-19 20:33] LABS: EOSINOPHIL,URINE None Seen
[2019-09-19] MEDS: QUETIAPINE FUMARATE 100 MG TABLET PO SCH (21:10)
[2019-09-19] MEDS: ATORVASTATIN 10 MG TABLET PO SCH (21:10)
[2019-09-20] VITALS: BP 116/59
[2019-09-20] MEDS: IV NS 0.9% 1,000 ML IV PRN (05:22)
[2019-09-20] MEDS: MORPHINE SULFATE INJ 2 MG/ML DISP.SYRIN IV PRN ×3 (05:37→13:25)
--- NOTE | 2019-09-20 05:49 | NUR ---
MS RN NOTES PATIENT C/O RIGHT SHOULDER PAIN RATED 10/10. PATIENT REQUESTED PAIN MEDICATION; HOWEVER AFTER PULLING OUT MORPHINE FROM [facility], PATIENT REFUSED. MEDICATION WAS RETURNED TO [facility] WITH WITNESS FROM RN. AFTER RETURNING MEDICATION, PATIENT CHANGED HER MIND AGAIN AND REQUESTED FOR MORPHINE. PRN MORPHINE 2MG WAS GIVEN TO PATIENT; VITAL SIGNS - BP: 116/59 HR: 78. CALL LIGHT WITHIN REACH. WILL CONTINUE TO MONITOR EFFECTIVENESS OF MEDICATION
--- NOTE | 2019-09-20 06:39 | NUR ---
MS RN NOTES PATIENT TRANSFERRED TO OR FOR SURGERY. CONSENT FORMS VERIFIED WITH OR NURSE.
[2019-09-20 06:41] LABS: BASOPHILS % (AUTO) 0.5 % (0.0-2.0); EOSINOPHILS % (AUTO) 11.1 % (0.0-6.0); HEMATOCRIT 37 % (33-45); LYMPHOCYTES # (AUTO) 1.1 /CMM (0.8-4.8); MEAN CORPUSCULAR HGB CONC 32 g/dl (31.0-36.0); MEAN CORPUSCULAR VOLUME 86 fL (82-100); MONOCYTES # (AUTO) 0.5 /CMM (0.1-1.30); MONOCYTES % (AUTO) 8.6 % (2.0-12.0); NEUTROPHILS # (AUTO) 3.6 /CMM (1.8-8.9); NEUTROPHILS % (AUTO) 60.8 % (43.0-81.0); PLATELET COUNT (AUTO) 213 /CMM (150-450); RED BLOOD CELL COUNT(AUTO) 4.33 MIL/uL (4.0-5.2)
[2019-09-20] MEDS ORDERED: ANESTHESIA TRAY IN PYXIS 1 EA TRAY MC ONE (06:46)
[2019-09-20 07:08] LABS: ALBUMIN 2.7 g/dL (3.4-5.0); BILIRUBIN,TOTAL 0.2 mg/dL (0.2-1.0); CREATININE 1.4 mg/dL (0.6-1.3); MAGNESIUM 2.2 mg/dL (1.8-2.4); PHOSPHORUS 3.5 mg/dL (2.5-4.9); POTASSIUM 4.1 mmol/L (3.5-5.1); TOTAL PROTEIN, SERUM 6.7 g/dL (6.4-8.2)
[2019-09-20] MEDS ORDERED: FENTANYL PF 100MCG/2ML AMPUL ONE (07:28)
[2019-09-20 08:00] VITALS: BP 96/58
--- NOTE | 2019-09-20 08:25 | NUR ---
RN OPENING NOTES RECEIVED PATIENT IN BED, JUST GOT BACK FROM OR, A/O X3. VERBALLY RESPONSIVE AND ABLE TO MAKE NEEDS KNOWN. COMPLAINT OF PAIN ON HER R SHOULDER BUT PER PATIENT IT'S TOLERABLE . NOTED OF R ARMSLING. ON ROOM AIR, NO SOB NOTED. RESPIRATION EVEN AND UNLABORED. IV ACCESS ON LAC #20, S/L. NO SIGNS OF INFILTRATION NOTED. SAFETY MEASURES IN PLACE, CALL LIGHT WITHIN REACH. WILL CONTINUE TO MONITOR
[2019-09-20] MEDS: AMLODIPINE BESYLATE 5 MG TABLET PO SCH (09:00)
[2019-09-20] MEDS: DOCUSATE SODIUM 250 MG CAPSULE PO SCH (09:02)
[2019-09-20] MEDS: clonazePAM 1 MG TABLET PO SCH ×2 (09:03→16:49)
[2019-09-20] MEDS: ESCITALOPRAM OXALATE (10 MG) 10 MG TABLET PO SCH (09:03)
[2019-09-20] MEDS: TOPIRAMATE 25 MG TABLET PO SCH ×2 (09:03→16:49)
--- NOTE | 2019-09-20 11:31 | NUR ---
WOUND CARE CONSULT: PT PRESENTS WITH INTACT SKIN, PRESENT ON ADMISSION. RECOMMENDATION MADE FOR SKIN PROTECTION. DISCUSSED WITH NURSING STAFF. WILL SEE PRN. CASTELLANOS IN AGREEMENT WITH PLAN OF CARE.
[2019-09-20 16:00] VITALS: BP 110/69
--- NOTE | 2019-09-20 19:09 | NUR ---
RN CLOSING NOTES PATIENT IN BED, RESTING COMFORTABLY. IN NO APPARENT DISTRESS NOTED. ON ROOM AIR. NO SOB NOTED. IV ACCESS ON L AC INTACTWITH ON SALVADOR NS 0.9 % @100ML/HR. NO SIGNS OF INFILTRATION. KEPT CLEAN AND DRY , ALL NEEDS MET. SAFETY MEASURES IN PLACED, CALL LIGHT WITHIN REACHED. ENDORSED TO PM RN FOR SERVANDO.
--- NOTE | 2019-09-20 19:42 | NUR ---
MS RN OPENING NOTES PATIENT RECEIVED RESTING IN BED, A/O X 3 ABLE TO MAKE NEEDS KNOWN. STABLE ON RA WITH BREATHING EVEN AND UNLABORED, NO SOB NOTED. NO SIGNS OF ACUTE DISTRESS. NO COMPLAINTS OF PAIN OR DISCOMFORT. IV LOCATED ON L AC #20 RUNNING NS @ 100 CC/ HR. SAFETY [id number] IN PLACE WITH BED IN LOWEST POSITION, CALL LIGHT WITHIN REACH, SIDE RAILS UP, AND BREAKS ON. WILL CONTINUE TO MONITOR THROUGHOUT THE NIGHT.
[2019-09-20 20:00] VITALS: BP 122/76
[2019-09-20] MEDS: QUETIAPINE FUMARATE 100 MG TABLET PO SCH (21:21)
[2019-09-20] MEDS: ATORVASTATIN 10 MG TABLET PO SCH (21:21)
[2019-09-21] MEDS: IV NS 0.9% 1,000 ML IV PRN (03:49)
[2019-09-21 04:00] VITALS: BP 116/66
--- NOTE | 2019-09-21 06:31 | NUR ---
MS RN CLOSING NOTES PATIENT RESTING IN BED, A/O X 3 ABLE TO MAKE NEEDS KNOWN. STABLE ON RA WITH BREATHING EVEN AND UNLABORED, NO SOB NOTED. NO SIGNS OF ACUTE DISTRESS. NO COMPLAINTS OF PAIN OR DISCOMFORT. IV LOCATED ON L AC #20 RUNNING NS @ 100 CC/ HR. SAFETY [id number] IN PLACE WITH BED IN LOWEST POSITION, CALL LIGHT WITHIN REACH, SIDE RAILS UP, AND BREAKS ON. PATIENT WAS KEPT CLEAN AND DRY THROUGH OUT THE NIGHT, ALL NEEDS ATTENDED TO. WILL ENDORSE TO ONCOMING SHIFT ABUT SERVANDO.
--- NOTE | 2019-09-21 07:50 | NUR ---
MS/RN OPENING NOTES PATIENT RESTING IN BED, A/O X 3 ABLE TO MAKE NEEDS KNOWN. STABLE ON RA WITH BREATHING EVEN AND UNLABORED, NO SOB NOTED. NO SIGNS OF ACUTE DISTRESS. NO COMPLAINTS OF PAIN OR DISCOMFORT. IV LOCATED ON L AC #20 RUNNING NS @ 100 CC/ HR. SAFETY PRECAUTIONS IN PLACE WITH BED IN LOWEST POSITION, CALL LIGHT WITHIN REACH, SIDE RAILS UP, AND BREAKS ON. WILL CONTINUE TO MONITOR.
[2019-09-21 08:00] VITALS: BP_SYST 133; BP_DIAS 63; BP_DIAS 76
[2019-09-21] MEDS: ESCITALOPRAM OXALATE (10 MG) 10 MG TABLET PO SCH ×2 (09:00→10:25)
[2019-09-21] MEDS: AMLODIPINE BESYLATE 5 MG TABLET PO SCH ×2 (09:00→10:26)
[2019-09-21] MEDS: clonazePAM 1 MG TABLET PO SCH ×3 (09:00→17:00)
[2019-09-21] MEDS: DOCUSATE SODIUM 250 MG CAPSULE PO SCH ×2 (09:00→10:25)
[2019-09-21] MEDS: TOPIRAMATE 25 MG TABLET PO SCH ×3 (09:00→17:00)
[2019-09-21 12:07] LABS: PTH, INTACT 22 pg/mL (15-65)
[2019-09-21 16:00] VITALS: BP 140/80
--- NOTE | 2019-09-21 19:36 | NUR ---
MS/RN CLOSING NOTES NOTES PATIENT RESTING IN BED, A/O X 3 ABLE TO MAKE NEEDS KNOWN. STABLE ON RA WITH BREATHING EVEN AND UNLABORED, NO SOB NOTED. NO SIGNS OF ACUTE DISTRESS. NO COMPLAINTS OF PAIN OR DISCOMFORT. SEEN AND EXAMINED BY MD WITH ORDERS MADE AND CARRIED OUT. ALL DUE MEDS WAS GIVEN. SAFETY PRECAUTIONS IN PLACE WITH BED IN LOWEST POSITION, CALL LIGHT WITHIN REACH, SIDE RAILS UP, AND BREAKS ON. WILL CONTINUE TO MONITOR. FOR DISCHARGED TODAY. ENDORSED TO PLANT PULLER.
--- NOTE | 2019-09-21 19:38 | NUR ---
MS RN OPENING NOTES, RECEIVED PATIENT IN BED AWAKE, A/O X3. ABLE TO MAKE NEEDS KNOWN. ON RA, TOLERATING WELL, NO SOB VT ACUTE DISTRESS NOTED AT THIS TIME. NO COMPLAIN OF PAIN OR DISCOMFORT. IV ON LAC #20. PATENT AND NO S/S OF INFILTRATION NOTED. PATENT AWAITS FOR TRANSPORTATION TO [facility]. ALL DC DOCUMENTATION ARE PREPARED BY AM RN. ALL SAFETY MEASURES ARE IN PLACE, BED IN LOW/LOCKED POSITION. CALL LIGHT WITHIN REACH, WILL CONTINUE TO MONITOR.
[2019-09-21 20:00] VITALS: BP 111/69
[2019-09-22 13:07] LABS: *SPE A/G RATIO 0.9 (0.7-1.7); *SPE ALBUMIN 2.9 g/dL (2.9-4.4); *SPE ALPHA-1-GLOBULIN 0.2 g/dL (0.0-0.4); *SPE ALPHA-2-GLOBULIN 0.8 g/dL (0.4-1.0); *SPE GLOBULIN, TOTAL 3.3 g/dL (2.2-3.9); *SPE M-SPIKE Not Observed g/dL (Not Observed); *SPEGAMMA GLOBULIN 1.3 g/dL (0.4-1.8)
== END 2019-09-21 21:45 | DRG 562 ==
LOC: ER 20:42 → MEDSG1 22:02
PROVIDERS: ADMIT Hospitalist; ATTEND Nurse Practitioner Acute Care
PROC: 0RSJXZZ Reposition Right Shoulder Joint, External Approach (ICD-10-PCS; principal; 2019-09-20)
DX: M24.411 Recurrent dislocation, right shoulder (principal); N17.0 Acute kidney failure with tubular necrosis; I13.0 Hypertensive heart and chronic kidney disease with heart failure and stage 1 through stage 4 chronic kidney disease, or unspecified chronic kidney disease; Z68.41 Body mass index [BMI] 40.0-44.9, adult; N18.9 Chronic kidney disease, unspecified; F32.9 Major depressive disorder, single episode, unspecified; E66.01 Morbid (severe) obesity due to excess calories; I25.10 Atherosclerotic heart disease of native coronary artery without angina pectoris; G40.909 Epilepsy, unspecified, not intractable, without status epilepticus; E03.9 Hypothyroidism, unspecified; J45.909 Unspecified asthma, uncomplicated; M19.90 Unspecified osteoarthritis, unspecified site; Z85.3 Personal history of malignant neoplasm of breast; Z95.0 Presence of cardiac pacemaker; F20.9 Schizophrenia, unspecified; E78.5 Hyperlipidemia, unspecified
CPT/HCPCS: 36415; 71045-TC; 73020; 73030-TC; 80048-TC; 80053-TC; 80061-TC; 81000-TC; 82550-TC; 82570-TC; 83735-TC; 83970; 84100-TC; 84155; 84155-TC; 84165; 84300-TC; 84443-TC; 84703-TC; 85025-TC; 85610-TC; 85730-TC; 86850-TC; 87081-TC; 87086-TC; 93307-TC; 97110-TC; 97112-TC; 97530-TC; G0378; J2270; J3010; J3480; J7030

== ENCOUNTER 2019-09-25 19:02 | Inpatient (IN) | payer MEDICARE, MEDICAID ==
[~2019-09-25] VITALS: Ht 172.7 cm; Wt 98.9 kg
[~2019-09-25 19:02] MED LIST changes: -ACET-2605 PO; +ALBU2.5V38 IH; -ALBU8.5H8 IH; +AMLO5TAB9 PO; -ASPI-1152 PO; +BENZ0.5T43 PO; +BISA5TAB10 PO; +BUDE10.2 IH; -DOCU100C36 PO; +DOCU250C14 PO; -FLUT10.62 IH; -LEVO50TA8 PO; +MAGN400O6 PO; -MELO-107 PO; -METO25TA20 PO; +NITR100C PO; +PALI6TAB PO; -RISP0.2515 PO; -TEMA15CA PO
--- NOTE | 2019-09-25 19:32 | NUR ---
CALLED [facility] SEWING MACHINE OPERATOR BENJY MATOS SPEAKING WITH DR BOWLES
[2019-09-25] MEDS ORDERED: PROPOFOL 20 ML IV ONE (19:59)
[2019-09-25] MEDS ORDERED: PROPOFOL 1,000 MG/100 ML BOTTLE IV ONE (20:00)
--- NOTE | 2019-09-25 20:07 | NUR ---
PATIENT SIGNED AGREEMENT FOR MODERATE SEDATION WITH CLOSED REDUCTION OF RIGHT SHOULDER.
--- NOTE | 2019-09-25 20:37 | NUR ---
PT CAME TO ER BED 1 C/O RIGHT SHOULDER PAIN. PATIENT UNABLE TO REMEMBER HOW MANY DAYS SHE HAS THIS PAIN. PATIENT STATES THAT SHE WAS IN A RESTROOM GETTING UP WHILE HOLDING ON TO THE RAILING AND STATES HER RIGHT SHOULDER POPPED. AAOX4. NO SOB. BREATHING EVENLY AND UNLABORED. CONNECTED TO MONITOR.
--- NOTE | 2019-09-25 20:45 | NUR ---
IV PROPOFOL 90MG IS GIVEN BY
--- NOTE | 2019-09-25 20:51 | NUR ---
PATIENT IS AWAKE.
--- NOTE | 2019-09-25 21:04 | NUR ---
XRAY AT BEDSIDE TO CHECK SHOULDER REDUCTION
[2019-09-25] MEDS ORDERED: Z GUARD REMEDY 2 OZ OINT TP PRN (21:30)
[2019-09-25] MEDS ORDERED: MAGNESIUM HYDROXIDE 30 ML UDC PO PRN ×2 (21:30)
[2019-09-25] MEDS ORDERED: ALBUTEROL FS 2.5 MG/3 ML VIAL.NEB IH PRN (21:30)
[2019-09-25] MEDS ORDERED: ONDANSETRON HCL/PF 4 MG/2 ML VIAL IVP PRN (21:30)
[2019-09-25] MEDS ORDERED: MORPHINE SULFATE INJ 2 MG/ML DISP.SYRIN IV ONE (21:30)
[2019-09-25] MEDS ORDERED: BISACODYL (5 MG) 5 MG TABLET.DR PO SCH (21:30)
[2019-09-25] MEDS ORDERED: MAG HYDROX/AL HYDROX/SIMETH 30 ML UDC PO PRN (21:30)
[2019-09-25] MEDS ORDERED: MORPHINE SULFATE INJ 2 MG/ML DISP.SYRIN IV PRN (21:30)
[2019-09-25] MEDS ORDERED: HYDROCODONE/APAP 5/325MG 1 EACH TABLET PO ONE (22:00)
--- NOTE | 2019-09-25 22:00 | NUR ---
BED ASSIGNMENT 204-1
--- NOTE | 2019-09-25 22:37 | NUR ---
REPORT GIVEN TO FLOR RYDER FOR SERVANDO.
--- NOTE | 2019-09-25 23:42 | NUR ---
PATIENT CAME FROM ER,A/O X4. WITH RIGHT SHOULDER/ARM SLING. NO SOB NOTED. RIGHT FINGERS WITH GOOD CMS. ON O2 AT 2L/MIN NASAL CANNULA. CALL LIGHT WITHIN REACH. BED ALARM ON. BED IN LOWEST AND LOCKED POSITION.
[2019-09-26] VITALS: BP 159/81
[2019-09-26] MEDS: QUETIAPINE FUMARATE 100 MG TABLET PO SCH ×2 (00:05→22:25)
[2019-09-26] MEDS: HYDROCODONE/APAP 5/325MG 1 EACH TABLET PO PRN (00:05)
[2019-09-26] MEDS: ATORVASTATIN 10 MG TABLET PO SCH ×2 (00:05→22:24)
[2019-09-26] MEDS ORDERED: BUDESONIDE RESPULE INH 0.25 MG/2 ML AMPUL.NEB ONE (00:27)
[2019-09-26] MEDS: BUDESONIDE RESPULE INH 0.5 MG/2 ML AMPUL.NEB NEB SCH ×3 (00:43→15:09)
[2019-09-26] MEDS: ALBUTEROL FS 2.5 MG/3 ML VIAL.NEB NEB SCH ×4 (01:55→19:58)
--- NOTE | 2019-09-26 04:34 | NUR ---
PATIENT WALKED TO THE BATHROOM WITH MINIMAL ASSISTANCE, STEADY. VOIDED.
--- NOTE | 2019-09-26 07:30 | NUR ---
M/S RN OPENING NOTES RECEIVED PT ON BED, A/O X4 WITH DELAYED RESPONSE. WITH RIGHT SHOULDER DISLOCATION, RIGHT SLING ON FOR IMMOBILIZATION. PT NOT IN ACUTE DISTRESS, ON O2 AT2LPM PRN. ABD SOFT AND NON DISTENDED WITH ACTIVE BOWEL SOUNDS, PT WITH BRP. PAIN OF 7/10 ON RIGHT SHOULDER BUT TOLERATED PER PT, NOT NEEDED PAIN MEDICATION STATED. SKIN WARM TO TOUCH AND DRY. CALL LIGHT WITHIN REACH. BED IN LOW LOCKED POSITION, SR X2 UP FOR SAFETY. IV SITE AT LEFT AC, PATENT IN FLUSHING, NO S/SX ON INFILTRATION. WILL CONTINUE TO MONITOR CARE
--- NOTE | 2019-09-26 07:38 | NUR ---
MS RN CLOSING NOTES: PATIENT IS RESTING IN BED, AWAKE, A/O X4.NO SOB NOTED. NOT IN PAIN. CALL LIGHT WITHIN REACH. BED IN LOWEST AND LOCKED POSITION. WITH RIGHT SHOULDER/ARM SLING ON AT ALL TIMES.
--- NOTE | 2019-09-26 07:59 | NUR ---
M/S RN NOTES RECEIVED A CALL FROM IFRAH [facility] WITH NEW ORDER FOR CLOSED REDUCTION OF RIGHT SHOULDER DISLOCATION TO BE DONE BY DR. OTERO, SCHEDULED AT 12NN. ORDER READ BACK, NOTED AND CARRIED OUT. CONSENT TO BE OBTAINED WITH PT
[2019-09-26 08:00] VITALS: BP 140/72
--- NOTE | 2019-09-26 08:52 | NUR ---
M/S RN NOTES PT SEEN AND EVALUATED BY DR. LUDWIG FOR SURGERY CLEARANCE. PT CLEARED FOR SURGERY PER .
[2019-09-26] MEDS: AMLODIPINE BESYLATE 5 MG TABLET PO SCH (08:55)
[2019-09-26] MEDS: ESCITALOPRAM OXALATE (10 MG) 10 MG TABLET PO SCH (08:55)
[2019-09-26] MEDS: DOCUSATE SODIUM 250 MG CAPSULE PO SCH (08:55)
[2019-09-26] MEDS: clonazePAM 1 MG TABLET PO SCH ×2 (08:55→16:05)
[2019-09-26] MEDS: BENZTROPINE MESYLATE (1 MG) 1 MG TABLET PO SCH ×3 (08:55→16:05)
[2019-09-26] MEDS: TOPIRAMATE 25 MG TABLET PO SCH ×2 (09:00→16:05)
--- NOTE | 2019-09-26 09:14 | NUR ---
M/S RN NOTES OBTAINED WRITTEN CONSENT FOR CLOSE REDUCTION OF RIGHT SHOULDER DISLOCATION
[2019-09-26 09:19] LABS: BASOPHILS % (AUTO) 0.7 % (0.0-2.0); EOSINOPHILS % (AUTO) 8.5 % (0.0-6.0); HEMATOCRIT 39 % (33-45); HEMOGLOBIN 12.5 g/dL (11.5-14.8); LYMPHOCYTES # (AUTO) 1.3 /CMM (0.8-4.8); LYMPHOCYTES % (AUTO) 18.6 % (20.0-44.0); MEAN CORPUSCULAR HGB CONC 32 g/dl (31.0-36.0); MEAN CORPUSCULAR VOLUME 88 fL (82-100); MONOCYTES # (AUTO) 0.6 /CMM (0.1-1.30); MONOCYTES % (AUTO) 9.3 % (2.0-12.0); NEUTROPHILS # (AUTO) 4.2 /CMM (1.8-8.9); NEUTROPHILS % (AUTO) 62.9 % (43.0-81.0); PLATELET COUNT (AUTO) 206 /CMM (150-450); RED BLOOD CELL COUNT(AUTO) 4.45 MIL/uL (4.0-5.2); WHITE BLOOD COUNT (AUTO) 6.7 K/uL (4.3-11.0)
[2019-09-26 09:35] LABS: CALCIUM, SERUM 8.9 mg/dL (8.5-10.1); CREATININE 1.3 mg/dL (0.6-1.3); MAGNESIUM 2.1 mg/dL (1.8-2.4); PHOSPHORUS 4.2 mg/dL (2.5-4.9); POTASSIUM 3.6 mmol/L (3.5-5.1)
--- NOTE | 2019-09-26 10:14 | NUR ---
M/S RN NOTES PT SEEN AND EVALUATED BY MANN WEST. NEW ORDER OF PT/OT.
--- NOTE | 2019-09-26 12:05 | NUR ---
M/S RN NOTES PT TRANSFERRED TO OR VIA [facility] WITH 2 OR STAFF
[2019-09-26] MEDS ORDERED: HYDROMORPHONE 1 MG/1 ML DISP.SYRIN ONE (12:34)
--- NOTE | 2019-09-26 13:05 | NUR ---
M/S RN NOTES RECEIVED PT POST CLOSE REDUCTION SURGERY, A/OX4, AWAKE AND ORIENTED. ON O2 AT 2LPM. IN STABLE CONDITION. ORDERS FROM OR CARRIED OUT. RIGHT SLING IN PLACE AT ALL TIMES. WILL CONTINUE TO MONITOR
--- NOTE | 2019-09-26 14:05 | NUR ---
M/S RN NOTES PT REFUSED PT EVAL TODAY
[2019-09-26 16:00] VITALS: BP 122/58
[2019-09-26] MEDS: ACETAMINOPHEN 325 MG TABLET PO PRN ×2 (16:49→22:25)
--- NOTE | 2019-09-26 18:49 | NUR ---
M/S RN CLOSING NOTES PT A/OX4, RESPONSIVE TO ALL STIMULI. NOT IN ACUTE RESPIRATORY DISTRESS. DENIES PAIN AND DISCOMFORT. SKIN WARM TO TOUCH AND DRY. ABD SOFT AND NON DISTENDED WITH ACTIVE BOWEL SOUNDS, WITH BRP. PT RUE ON SLING AT ALL TIMES WITH NWB. IV SITE AT LEFT AC #18, PATENT IN FLUSHING, NO S/SX ON INFILTRATION. CALL LIGHT WITHIN REACHED. BED IN LOCKED POSITION, HOB ELEVATED FOR COMFORT AND BREATHING PATTERN COMFORTABILITY PER PT. SR X2 UP FOR SAFETY, ENDORSED PT CARE TO NEXT SHIFT.
--- NOTE | 2019-09-26 19:10 | NUR ---
MS RN NOTES RECEIVED PT IN BED, AWAKE, AND ABLE TO MAKE NEEDS KNOWN. PT A/O X3. RESPIRATIONS EVEN AND UNLABORED WITH NO S/S OF ACUTE DISTRESS OR SOB NOTED. NO COMPLAINTS OF PAIN AT THIS TIME. PT RUE SLING ON AT ALL TIMES WITH NWB. PT WITH IV SITE AT LEFT AC #18, PATENT AND INTACT AND SL. SAFETY MEASURES IN PLACE WITH BED IN LOWEST LOCKED POSITION WITH SIDE RAILS UP X2. CALL LIGHT WITHIN REACH. WILL CONTINUE TO MONITOR.
[2019-09-26 20:00] VITALS: BP 139/80
[2019-09-27] MEDS: ALBUTEROL FS 2.5 MG/3 ML VIAL.NEB NEB SCH ×4 (01:22→20:26)
--- NOTE | 2019-09-27 05:00 | NUR ---
MS RN NOTES PT HAVING PERIODS OF DELUSIONS. PT STATES THAT "AN DEBBIE TOLD ME THAT LAYO DICKEY STOLE MY ID AND MY SOCIAL SECURITY NUMBER. HE WORSHIPS THE DEVIL AND STOLE IT." REORIENTED THE PATIENT. WILL CONTINUE TO MONITOR.
[2019-09-27] MEDS: HYDROCODONE/APAP 5/325MG 1 EACH TABLET PO PRN (05:57)
--- NOTE | 2019-09-27 06:58 | NUR ---
MS RN NOTES PT IN BED, AWAKE, AND ABLE TO MAKE NEEDS KNOWN. PT A/O X3. RESPIRATIONS EVEN AND UNLABORED WITH NO S/S OF ACUTE DISTRESS OR SOB NOTED THROUGHOUT SHIFT. NO COMPLAINTS OF PAIN AT THIS TIME. PT RUE SLING ON AT ALL TIMES WITH NWB. PT WITH IV SITE AT LEFT AC #18, PATENT AND INTACT AND SL. PT KEPT CLEAN, DRY, AND COMFORTABLE. SAFETY MEASURES IN PLACE WITH BED IN LOWEST LOCKED POSITION WITH SIDE RAILS UP X2. CALL LIGHT WITHIN REACH. WILL ENDORSE TO ONCOMING NURSE FOR SERVANDO..
[2019-09-27] MEDS: BUDESONIDE RESPULE INH 0.5 MG/2 ML AMPUL.NEB NEB SCH ×2 (07:05→13:54)
--- NOTE | 2019-09-27 07:32 | NUR ---
MS RN NOTES RECEIVED PATIENT IN BED RESTING COMFORTABLY IN MODERATE HIGH BACK REST, A/O X3 WITH PERIODS OF CONFUSION. NO S/S OF DISTRESS OR SOB NOTED AT THIS TIME. NO COMPLAINTS OF PAIN AT THIS TIME. NOTED WITH RUE SLING ON AT ALL TIMES WITH NWB. IV SITE AT LEFT AC #18, PATENT AND INTACT AND SL. SAFETY MEASURES IN PLACE WITH BED IN LOWEST LOCKED POSITION WITH SIDE RAILS UP X2. CALL LIGHT WITHIN REACH. WILL CONTINUE TO MONITOR.
[2019-09-27 08:00] VITALS: BP 125/76
[2019-09-27] MEDS: BENZTROPINE MESYLATE (1 MG) 1 MG TABLET PO SCH ×3 (08:42→16:13)
[2019-09-27] MEDS: TOPIRAMATE 25 MG TABLET PO SCH ×2 (08:42→16:13)
[2019-09-27] MEDS: DOCUSATE SODIUM 250 MG CAPSULE PO SCH (08:42)
[2019-09-27] MEDS: clonazePAM 1 MG TABLET PO SCH ×2 (08:42→16:13)
[2019-09-27] MEDS: ESCITALOPRAM OXALATE (10 MG) 10 MG TABLET PO SCH (08:42)
[2019-09-27] MEDS: AMLODIPINE BESYLATE 5 MG TABLET PO SCH (08:43)
[2019-09-27 16:00] VITALS: BP 137/68
--- NOTE | 2019-09-27 18:43 | NUR ---
MS RN NOTES PATIENT IN BED RESTING COMFORTABLY IN MODERATE HIGH BACK REST, A/O X3 WITH PERIODS OF CONFUSION. NO S/S OF DISTRESS OR SOB NOTED THROUGHOUT THE SHIFT. NOTED WITH RUE SLING ON AT ALL TIMES WITH NWB. IV SITE AT LEFT AC #18, PATENT AND INTACT AND SL. SAFETY MEASURES IN PLACE WITH BED IN LOWEST LOCKED POSITION WITH SIDE RAILS UP X2. CALL LIGHT WITHIN REACH. WILL ENDORSE TO COUPON AND BOND COLLECTION CLERK NURSE FOR SERVANDO.
[2019-09-27 21:09] VITALS: BP 143/75
[2019-09-27] MEDS: ATORVASTATIN 10 MG TABLET PO SCH (22:19)
[2019-09-27] MEDS: QUETIAPINE FUMARATE 100 MG TABLET PO SCH (22:19)
[2019-09-28] MEDS: ALBUTEROL FS 2.5 MG/3 ML VIAL.NEB NEB SCH ×3 (01:56→15:13)
--- NOTE | 2019-09-28 07:24 | NUR ---
MS RN NOTES RECEIVED PATIENT IN BED RESTING COMFORTABLY IN MODERATE HIGH BACK REST, ABLE TO MAKE NEEDS KNOWN. PT A/O X3. RESPIRATIONS EVEN AND UNLABORED WITH NO S/S OF ACUTE DISTRESS OR SOB NOTED AT THIS TIME. NO COMPLAINTS OF PAIN AT THIS TIME. NOTED WITH RUE SLING ON AT ALL TIMES WITH NWB. IV SITE AT LEFT AC #18, PATENT AND INTACT AND SL. PT KEPT CLEAN, DRY, AND COMFORTABLE. SAFETY MEASURES IN PLACE WITH BED IN LOWEST LOCKED POSITION WITH SIDE RAILS UP X2. CALL LIGHT WITHIN REACH. WILL CONTINUE TO MONITOR.
[2019-09-28 08:00] VITALS: BP 147/70
[2019-09-28] MEDS: DOCUSATE SODIUM 250 MG CAPSULE PO SCH (08:29)
[2019-09-28] MEDS: TOPIRAMATE 25 MG TABLET PO SCH (08:29)
[2019-09-28] MEDS: ESCITALOPRAM OXALATE (10 MG) 10 MG TABLET PO SCH (08:29)
[2019-09-28] MEDS: BENZTROPINE MESYLATE (1 MG) 1 MG TABLET PO SCH ×2 (08:30→13:04)
[2019-09-28] MEDS: clonazePAM 1 MG TABLET PO SCH (08:30)
[2019-09-28] MEDS: AMLODIPINE BESYLATE 5 MG TABLET PO SCH (08:31)
[2019-09-28] MEDS: BUDESONIDE RESPULE INH 0.5 MG/2 ML AMPUL.NEB NEB SCH (09:55)
[2019-09-28 16:00] VITALS: BP 140/95
--- NOTE | 2019-09-28 16:55 | NUR ---
RN DISCHARGED NOTES PATIENT DISCHARGED IN STABLE CONDITION, ABLE TO MAKE NEEDS KNOWN. A/O X3. V/S TAKEN, STABLE AND RECORDED. PATIENT'S IV REMOVED AND APPLIED PRESSURE DRESSINGS. SKIN IS INTACT. NAME ARM BAND REMOVED. ALL BELONGINGS CHECKED AND SIGNED. HEALTH TEACHINGS/DISCHARGED INSTRUCTIONS GIVEN TO PATIENT AND VERBALIZED UNDERSTANDING. REPORT GIVEN TO CORY AMEZCUA AT [facility]. PATIENT LEFT UNIT VIA GURNEY WITH 2 AMBULANCE STAFF. NO SIGNS OF DISTRESS NOTED. CHARGE NURSE AWARE OF DISCHARGED.
[2019-09-28] MEDS ORDERED: BUDESONIDE RESPULE INH 0.5 MG/2 ML AMPUL.NEB NEB SCH (19:30)
== END 2019-09-28 17:00 | DRG 563 ==
LOC: ER 19:07 → MEDSG2 23:16
PROVIDERS: ADMIT Internal Medicine; ATTEND Internal Medicine
PROC: 0RSJXZZ Reposition Right Shoulder Joint, External Approach (ICD-10-PCS; principal; 2019-09-26)
PROC: BW1JYZZ Fluoroscopy of Upper Extremity using Other Contrast (ICD-10-PCS; 2019-09-26)
DX: M24.411 Recurrent dislocation, right shoulder (principal); N18.9 Chronic kidney disease, unspecified; E03.9 Hypothyroidism, unspecified; F20.9 Schizophrenia, unspecified; F32.9 Major depressive disorder, single episode, unspecified; I12.9 Hypertensive chronic kidney disease with stage 1 through stage 4 chronic kidney disease, or unspecified chronic kidney disease; I25.10 Atherosclerotic heart disease of native coronary artery without angina pectoris; M19.90 Unspecified osteoarthritis, unspecified site; Z79.51 Long term (current) use of inhaled steroids; Z85.3 Personal history of malignant neoplasm of breast; Z95.0 Presence of cardiac pacemaker; J45.909 Unspecified asthma, uncomplicated; G40.909 Epilepsy, unspecified, not intractable, without status epilepticus; E78.5 Hyperlipidemia, unspecified; E66.01 Morbid (severe) obesity due to excess calories; Z68.33 Body mass index [BMI] 33.0-33.9, adult
CPT/HCPCS: 36415; 71045-TC; 73020; 73030-TC; 80048-TC; 83735-TC; 84100-TC; 84703-TC; 85025-TC; 85730-TC; 87081-TC; 94799-TC; 97112-TC; 97530-TC; G0378; G0500; J1170; J2704; J3490; J7030

== ENCOUNTER 2020-08-11 20:42 | Inpatient (IN) | payer MEDICARE, OTHER ==
[~2020-08-11] VITALS: Ht 167.6 cm; Wt 136.1 kg
[~2020-08-11 20:42] MED LIST changes: +AMLO-212 PO; -AMLO5TAB9 PO
--- NOTE | 2020-08-11 21:12 | NUR ---
PATRICIA FROM [facility]. C/O COUGH (+COVID ON 08/09/20) PT FOUND ON THE FLOOR WHEN PICKED UP, -TRAUMA. C/O RT SHOULDER, JENN KNEE & LOWER BACK PAIN. PT AAOX3, VSS. RR EVEN & UNLABORED. DENIES CP, SOB, DIZZINESS, N/V AT THIS TIME. WILL CONT TO MONITOR.
[2020-08-11 21:43] LABS: BASOPHILS % (AUTO) 0.4 % (0.0-2.0); EOSINOPHILS % (AUTO) 0.9 % (0.0-6.0); HEMATOCRIT 36 % (33-45); HEMOGLOBIN 11.3 g/dL (11.5-14.8); LYMPHOCYTES # (AUTO) 0.7 /CMM (0.8-4.8); LYMPHOCYTES % (AUTO) 14.4 % (20.0-44.0); MEAN CORPUSCULAR HGB CONC 31 g/dl (31.0-36.0); MEAN CORPUSCULAR VOLUME 82 fL (82-100); MONOCYTES # (AUTO) 0.5 /CMM (0.1-1.30); MONOCYTES % (AUTO) 9.2 % (2.0-12.0); NEUTROPHILS # (AUTO) 3.7 /CMM (1.8-8.9); NEUTROPHILS % (AUTO) 75.1 % (43.0-81.0); PLATELET COUNT (AUTO) 233 /CMM (150-450); RED BLOOD CELL COUNT(AUTO) 4.42 MIL/uL (4.0-5.2); WHITE BLOOD COUNT (AUTO) 4.9 K/uL (4.3-11.0)
[2020-08-11 21:52] LABS: ALANINE AMINOTRANSFERASE 8 U/L (12-78); ALBUMIN 2.8 g/dL (3.4-5.0); ALKALINE PHOSPHATASE 103 U/L (46-116); ASPARTATE AMINOTRANSFERASE 19 U/L (15-37); BILIRUBIN,DIRECT 0.1 mg/dL (0.0-0.2); BILIRUBIN,TOTAL 0.2 mg/dL (0.2-1.0); CALCIUM, SERUM 8.5 mg/dL (8.5-10.1); CARBON DIOXIDE 26 mmol/L (21-32); CHLORIDE 104 mmol/L (98-107); CREATININE 1.8 mg/dL (0.6-1.3); GLUCOSE 107 mg/dL (74-106); SODIUM SERUM 138 mmol/L (136-145); TOTAL PROTEIN, SERUM 7.4 g/dL (6.4-8.2); UREA NITROGEN, BLOOD 25 mg/dL (7-18)
--- NOTE | 2020-08-11 22:35 | NUR ---
SPOKE WITH MORENA FROM [facility] AND INFORMED PATIENT WILL RETURN BACK TO FACILITY
--- NOTE | 2020-08-11 22:38 | NUR ---
CALLED [facility] FOR TRANSPORTATION. SOONEST ETA 0600, DID NOT SET UP TRANSPORTATION
--- NOTE | 2020-08-11 22:42 | NUR ---
[facility] PLACED ON WILL CALL. TRIP #[id number] Addendum: 08/11/20 at 2345 by KAYLENE DAREK RUSSELL
--- NOTE | 2020-08-11 22:50 | NUR ---
PT SIGNED CONSENT FORM FOR RT SHOULDER REDUCTION ON MODERATE SEDATTION.
[2020-08-11] MEDS ORDERED: PROPOFOL 20 ML IV ONE (23:05)
[2020-08-11] MEDS ORDERED: PROPOFOL 200 MG/20 ML VIAL IV ONE (23:30)
--- NOTE | 2020-08-11 23:30 | NUR ---
ATTEMPTED TO CONTACT DR. AMARO REGARDING ADMISSION. PER ANSWERING SERVICE, CALL EPIC
--- NOTE | 2020-08-11 23:30 | NUR ---
UNSUCCESSFUL RT SHOULDER REDUCTION PT WILL BE ADMITTED TO HOSPITAL PER DR. WOMACK. PT STABLE, NO RESP DISTRESS NOTED AT THIS TIME. WILL CONT TO MONITOR.
--- NOTE | 2020-08-11 23:35 | NUR ---
DR. WOMACK SPEAKING WITH DR. ADAMS (SIGNALS COLLECTION TECHNICIAN [facility])
--- NOTE | 2020-08-11 23:38 | NUR ---
INFORMED ELVER FROM [facility] PATIENT WILL BE ADMITTED TO [facility], VERBALIZED UNDERSTANDING
--- NOTE | 2020-08-11 23:48 | NUR ---
DR. WOMACK SPEAKING WITH DR. SHAH REGARDING ADMISSION
[2020-08-11] MEDS ORDERED: AZITHROMYCIN 500 MG VIAL ONE (23:57)
[2020-08-12] MEDS ORDERED: HYDROCODONE/APAP 5/325MG TABLET PO PRN
[2020-08-12] MEDS ORDERED: AZITHROMYCIN 500 MG in IV D5W 250 ML IV ONE ×2
[2020-08-12] MEDS ORDERED: Z GUARD REMEDY 2 OZ OINT TP PRN
[2020-08-12] MEDS ORDERED: ZOLPIDEM TARTRATE 5 MG TABLET PO PRN
[2020-08-12] MEDS ORDERED: ALBUTEROL FS 2.5 MG/3 ML VIAL.NEB IH PRN
[2020-08-12] MEDS ORDERED: MAG HYDROX/AL HYDROX/SIMETH 30 ML UDC PO PRN
[2020-08-12] MEDS ORDERED: ONDANSETRON HCL/PF 4 MG/2 ML VIAL IVP PRN
[2020-08-12] MEDS ORDERED: MAGNESIUM HYDROXIDE 30 ML UDC PO PRN ×2
--- NOTE | 2020-08-12 04:31 | NUR ---
PT PROVIDED WITH BLANKETS.
[2020-08-12 05:44] LABS: BASOPHILS % (AUTO) 0.4 % (0.0-2.0); EOSINOPHILS % (AUTO) 1.1 % (0.0-6.0); HEMATOCRIT 35 % (33-45); LYMPHOCYTES # (AUTO) 0.9 /CMM (0.8-4.8); LYMPHOCYTES % (AUTO) 20.5 % (20.0-44.0); MEAN CORPUSCULAR HGB CONC 32 g/dl (31.0-36.0); MEAN CORPUSCULAR VOLUME 81 fL (82-100); MONOCYTES # (AUTO) 0.4 /CMM (0.1-1.30); MONOCYTES % (AUTO) 9.8 % (2.0-12.0); NEUTROPHILS % (AUTO) 68.2 % (43.0-81.0); PLATELET COUNT (AUTO) 225 /CMM (150-450); RED BLOOD CELL COUNT(AUTO) 4.27 MIL/uL (4.0-5.2); WHITE BLOOD COUNT (AUTO) 4.5 K/uL (4.3-11.0)
[2020-08-12 05:48] LABS: CALCIUM, SERUM 8.4 mg/dL (8.5-10.1); CREATININE 1.5 mg/dL (0.6-1.3); MAGNESIUM 2.3 mg/dL (1.8-2.4); PHOSPHORUS 3.5 mg/dL (2.5-4.9); POTASSIUM 3.6 mmol/L (3.5-5.1)
--- NOTE | 2020-08-12 06:01 | NUR ---
PT RESTING COMFORTABLY.
[2020-08-12] MEDS: BENZTROPINE MESYLATE (1 MG) 1 MG TABLET PO SCH ×3 (08:27→18:14)
[2020-08-12] MEDS: ESCITALOPRAM OXALATE (10 MG) 10 MG TABLET PO SCH (08:28)
[2020-08-12] MEDS: AMLODIPINE BESYLATE 5 MG TABLET PO SCH (08:28)
[2020-08-12] MEDS: NITROFURANTOIN MACROCRYSTAL 100 MG CAPSULE PO SCH ×2 (08:28→18:15)
[2020-08-12] MEDS: TOPIRAMATE 25 MG TABLET PO SCH ×2 (08:28→21:00)
[2020-08-12] MEDS: DOCUSATE SODIUM 250 MG CAPSULE PO SCH (08:28)
[2020-08-12] MEDS: clonazePAM 1 MG TABLET PO SCH ×2 (08:28→18:14)
--- NOTE | 2020-08-12 08:50 | NUR ---
PATIENT RESTING, NO DISTRESS NOTED.
[2020-08-12] MEDS ORDERED: Budesonide/Formoterol Fumarate (Symbicort 160-4.5 Mcg In INH SCH (09:00)
--- NOTE | 2020-08-12 09:56 | NUR ---
PATIENT A/OX3, INFORMED OF POSSIBLE SURGERY TODAY WITH DR. ADAMS. BREATHING EVEN AND UNLABORED, NO SOB NOTED. NEEDS ATTENDED. SEEN AND EVALUATED BY DR. PEREZ.
[2020-08-12 14:50] LABS: BILIRUBIN,URINE Negative (NEGATIVE); COLOR,URINE YELLOW (YELLOW); LEUKOCYTE ESTERASE ,URINE Negative (NEGATIVE); NITRITE, URINE Negative (NEGATIVE); PH,URINE 5.5 (5.0-8.0); PROTEIN,URINE Negative (NEGATIVE); UGLUCOSE Negative (NEGATIVE); UROBILINOGEN,URINE 0.2 EU/dL (0.2)
--- NOTE | 2020-08-12 15:07 | NUR ---
PER NURSING UNDERGROUND CONDUIT INSTALLER PATIENT'S SURGERY IS SCHEDULED TOMORROW AT 9AM. MAKE PATIENT NPO BY MIDNIGHT.
--- NOTE | 2020-08-12 16:57 | NUR ---
GOT BED 116-2
[2020-08-12] MEDS ORDERED: clonazePAM 1 MG TABLET ONE (18:13)
[2020-08-12] MEDS ORDERED: BENZTROPINE MESYLATE (1 MG) 1 MG TABLET ONE (18:13)
[2020-08-12] MEDS ORDERED: NITROFURANTOIN/NITROFURAN MAC 100 MG CAPSULE ONE (18:13)
--- NOTE | 2020-08-12 18:15 | NUR ---
REPORT GIVEN TO NAYAN RAY FOR SERVANDO.
--- NOTE | 2020-08-12 19:25 | NUR ---
PATIENT TRANSFERRED TO ROOM 116-1 VIA ACLS PROTOCOL. ENDORSED TO MARIANA, PATIENT IS TO BE NPO BY MIDNIGHT.
--- NOTE | 2020-08-12 19:30 | NUR ---
RN ADMITTING NOTE RECEIVED PATIENT FROM ER VIA [facility]; ADMITTING DIAGNOSIS OF SHOULDER DISLOCATION, COVID19 PNA; PCR RESULT PENDING. PATIENT AWAKE, ALERT AND ORIENTED X3. IN NO S/SX OF ACUTE DISTRESS AT THIS TIME. NO SOB NOTED. PATIENT'S BREATHING IS EVEN AND UNLABORED. PATIENT SATURATION AT 98% ON ROOM AIR. PATIENT ON TELE MONITOR READING SR, HR IS 96. NOTED IV SITE ON CAITY 20G, FLUSHING AND PATENT, SALINE LOCKED. NO S/S OF INFECTION OR INFILTRATION. NO SKIN ISSUES NOTED. PATIENT KEPT CLEAN , DRY AND COMFORTABLE. SAFETY MEASURES IMPLEMENTED. PATIENT BED ALARM IS ON. HEAD OF BED ELEVATED. BED IS LOCKED, IN LOWEST POSITION AND SIDE RAILS UP. CALL LIGHT WITHIN REACH OF THE PATIENT. ISOLATION PRECAUTIONS IN PLACE. WILL CONTINUE TO MONITOR AND REASSESS FOR ANY CHANGES. WILL ATTEND TO ALL MD ADMITTING ORDERS.
[2020-08-12 20:00] VITALS: BP 134/74
[2020-08-12] MEDS: QUETIAPINE FUMARATE 100 MG TABLET PO SCH (21:50)
[2020-08-12] MEDS: ATORVASTATIN 10 MG TABLET PO SCH (21:50)
[2020-08-13] VITALS: BP 156/86
[2020-08-13] MEDS: BISACODYL (5 MG) 5 MG TABLET.DR PO SCH
[2020-08-13 04:00] VITALS: BP 147/80
--- NOTE | 2020-08-13 07:49 | NUR ---
RN OPENING NOTE PATIENT IS IN BED WITH HOB AT SEMI FOWLERS POSITION. PATIENT IS AOX3. AMAYA CATHETER IS IN PLACE. SKIN IS INTACT. CAITY #[address] AND HAS NO SIGNS OF INFILTRATION. SR NOTED ON MONITOR. BED IS LOCKED IN THE LOWEST POSITION, CALL SCHNEIDER WITHIN REACH, 3 GUARD RAILS RAISED, AND ALL HOSPITAL SAFETY PRECAUTIONS ARE BEING FOLLOWED. WILL CONTINUE TO MONITOR THROUGHOUT SHIFT.
[2020-08-13 08:00] VITALS: BP 144/77
[2020-08-13] MEDS ORDERED: ANESTHESIA TRAY IN PYXIS 1 EA TRAY MC ONE (08:37)
[2020-08-13] MEDS: TOPIRAMATE 25 MG TABLET PO SCH ×2 (09:00→22:01)
[2020-08-13] MEDS: ESCITALOPRAM OXALATE (10 MG) 10 MG TABLET PO SCH (09:00)
[2020-08-13] MEDS: BENZTROPINE MESYLATE (1 MG) 1 MG TABLET PO SCH ×3 (09:00→16:31)
[2020-08-13] MEDS: DOCUSATE SODIUM 250 MG CAPSULE PO SCH (09:00)
[2020-08-13] MEDS: NITROFURANTOIN MACROCRYSTAL 100 MG CAPSULE PO SCH (09:00)
[2020-08-13] MEDS: AMLODIPINE BESYLATE 5 MG TABLET PO SCH (09:00)
[2020-08-13] MEDS: clonazePAM 1 MG TABLET PO SCH ×2 (09:00→16:31)
--- NOTE | 2020-08-13 09:00 | NUR ---
TO OR per bed
[2020-08-13] MEDS ORDERED: FENTANYL PF 100MCG/2ML AMPUL ONE (09:51)
[2020-08-13] MEDS ORDERED: SUCCINYLCHOLINE CHLORIDE 20 MG/ML VIAL ONE (09:51)
[2020-08-13 12:00] VITALS: BP 144/77
[2020-08-13] MEDS ORDERED: HYDROMORPHONE 1 MG/1 ML DISP.SYRIN IV PRN (12:00)
[2020-08-13 16:00] VITALS: BP 115/56
[2020-08-13] MEDS: ACETAMINOPHEN 325 MG TABLET PO PRN (17:29)
[2020-08-13] MEDS: IV D5/0.45 NACL W/20 MEQ KCL 1L IV PRN ×2 (17:41)
--- NOTE | 2020-08-13 19:07 | NUR ---
RN CLOSING NOTE PATIENT IS IN BED WITH HOB AT SEMI FOWLERS POSITION. PATIENT IS ON RA SATURATING 95%. PATIENT IS AOX2. SR NOTED ON MONITOR. SKIN IS INTACT. LWRIST LOCK IS PATENT, INTACT, AND HAS NO SIGNS OF INFILTRATION. BED IS LOCKED IN THE LOWEST POSITION, 3 GUARD RAILS RAISED, CALL SCHNEIDER WITHIN REACH, AND ALL HOSPITAL SAFETY PRECAUTIONS ARE BEING FOLLOWED. WILL ENDORSE TO RENOVATION PLANT SUPERVISOR NURSE.
--- NOTE | 2020-08-13 19:45 | NUR ---
RN OPENING NOTE RECEIVED PT IN BED. A/O X 3, PT ON ROOM AIR. PT SATURATION IS 94% AT THIS TIME. NO SOB OR RESP DISTRESS AT THIS TIME, BREATHING IS EVEN AND UNLABORED. ON TELE MONITOR PT PRESENTS WITH NSR HR OF 81 AT THIS TIME. IV SITE PATENT, INTACT AND FLUSHED. IVF KCL D5 1/2 NS RUNNING AT 75CC/HR. NO S/S OF INFILTRATION NOTED AT THIS TIME. RIGHT ARM IN SLING, PT DENIES PAIN AT THIS TIME. SAFETY MEASURES IN PLACE, ISOLATION PRECAUTIONS IMPLEMENTED, HOB ELEVATED SEMI FOWLERS, SIDE RAILS UP X3, BED LOCKED IN LOWEST POSITION WITH BED ALARM ON. CALL LIGHT WITHIN REACH. WILL CONT TO MONITOR.
[2020-08-13 20:00] VITALS: BP 128/89
[2020-08-13] MEDS: ATORVASTATIN 10 MG TABLET PO SCH (22:00)
[2020-08-13] MEDS: QUETIAPINE FUMARATE 100 MG TABLET PO SCH (22:01)
[2020-08-14] VITALS: BP 114/76
[2020-08-14 04:00] VITALS: BP 151/69
--- NOTE | 2020-08-14 05:00 | NUR ---
0500 DR SHAH WAS NOTIFIED OF PATIENT'S FEVER 102, PATIENT NPO FOR PROCEDURE IN AM WITH ORDER TO GIVE TYLENOL 650 MG SUPPOSITORY X1 NOW. ORDER NOTED AND CARRIED OUT.
[2020-08-14] MEDS ORDERED: ACETAMINOPHEN 650 MG/SUPP.RECT RC PRN (05:30)
[2020-08-14] MEDS: IV D5/0.45 NACL W/20 MEQ KCL 1L IV PRN ×4 (06:11→21:24)
--- NOTE | 2020-08-14 06:53 | NUR ---
RN CLOSING NOTES PT REMAINS WITH COLD COMPRESS, PT REFUSES ICE PACKS AT THIS TIME. TYLENOL SUPPOSITORY WAS ADMINISTERED. STILL ON ROOM AIR >92% ON MY SHIFT. PT HAS BEEN NPO SINCE MIDNIGHT, STILL WITH FLUIDS RUNNING NO S/S OF INFILTRATION ON LEFT HAND IV SITE. SAFETY MEASURES IN PLACE, HOB ELEVATED. SIDE RAILS X2. BED LOCKED IN LOWEST POSITION. CALL LIGHT WITHIN REACH. PT DENIES PAIN, JUST WANTS TO REST. ALL NEEDS ATTENDED. WILL ENDORSE TO AM NURSE FOR CONTINUATION OF CARE.
--- NOTE | 2020-08-14 07:30 | NUR ---
RN OPENING NOTE PATIENT IS IN BED WITH OB AT SEMI FOWLERS POSITION. PATIENT IS AOX3. PATIENT IS ON ROOM AIR. RIGHT SLING APPLIED. NSR NOTED ON MONITOR. AMAYA CATHETER IN PLACE. SKIN IS INTACT. LHAND #20 IS PATENT, INTACT, AND HAS NO SIGNS OF INFILTRATION. BED IS LOCKED IN THE LOWEST POSITION, CALL SCHNEIDER WITHIN REACH, 3 GUARD RAILS RAISED, AND ALL HOSPITAL SAFETY PRECAUTIONS ARE BEING FOLLOWED. WILL CONTINUE TO MONITOR.
[2020-08-14 08:00] VITALS: BP 128/64
[2020-08-14] MEDS: BENZTROPINE MESYLATE (1 MG) 1 MG TABLET PO SCH ×3 (08:49→16:13)
[2020-08-14] MEDS: AMLODIPINE BESYLATE 5 MG TABLET PO SCH (08:50)
[2020-08-14] MEDS: TOPIRAMATE 25 MG TABLET PO SCH ×2 (08:50→20:22)
[2020-08-14] MEDS: ESCITALOPRAM OXALATE (10 MG) 10 MG TABLET PO SCH (08:50)
[2020-08-14] MEDS: DOCUSATE SODIUM 250 MG CAPSULE PO SCH (08:50)
[2020-08-14] MEDS: clonazePAM 1 MG TABLET PO SCH ×2 (08:50→16:13)
--- NOTE | 2020-08-14 09:00 | NUR ---
CLOTH TESTER QUALITY NOTE PLACED PATIENT ON 2L NC WELL PLACED ICE PACKS UNDER LEFT AXILLARY FOR ELEVATED TEMPERATURE. WILL CONTINUE TO MONITOR
[2020-08-14] MEDS ORDERED: ANESTHESIA TRAY IN PYXIS 1 EA TRAY MC ONE (09:53)
[2020-08-14] MEDS ORDERED: BUPIVACAINE 0.5 % PF 150 MG/30 ML VIAL ONE (09:53)
[2020-08-14] MEDS ORDERED: VANCOMYCIN 1 GM VIAL ONE (09:53)
[2020-08-14] MEDS ORDERED: BACITRACIN 50000 UNITS/VIAL ONE (09:54)
[2020-08-14 09:57] LABS: BASOPHILS % (AUTO) 0.3 % (0.0-2.0); EOSINOPHILS % (AUTO) 0.5 % (0.0-6.0); HEMATOCRIT 34 % (33-45); HEMOGLOBIN 10.6 g/dL (11.5-14.8); LYMPHOCYTES # (AUTO) 0.6 /CMM (0.8-4.8); LYMPHOCYTES % (AUTO) 13.5 % (20.0-44.0); MEAN CORPUSCULAR HGB CONC 32 g/dl (31.0-36.0); MEAN CORPUSCULAR VOLUME 81 fL (82-100); MONOCYTES # (AUTO) 0.4 /CMM (0.1-1.30); MONOCYTES % (AUTO) 8.5 % (2.0-12.0); NEUTROPHILS # (AUTO) 3.4 /CMM (1.8-8.9); NEUTROPHILS % (AUTO) 77.2 % (43.0-81.0); PLATELET COUNT (AUTO) 207 /CMM (150-450); RED BLOOD CELL COUNT(AUTO) 4.17 MIL/uL (4.0-5.2); WHITE BLOOD COUNT (AUTO) 4.4 K/uL (4.3-11.0)
--- NOTE | 2020-08-14 10:04 | NUR ---
FRUIT INSPECTOR NOTE TRIED TO CONTACT DR. ADAMS VIA CELL PHONE BUT NO ANSWER. LEFT VOICE MESSAGE NOTIFYING HIM OF ELEVATED TEMPERATURE AT 100.4 WELL 91% O2 SATURATION WELL NC 2L APPLICATION AND O2 OF 94%.
[2020-08-14 10:53] LABS: ALBUMIN 2.4 g/dL (3.4-5.0); BILIRUBIN,TOTAL 0.2 mg/dL (0.2-1.0); CALCIUM, SERUM 7.9 mg/dL (8.5-10.1); CREATININE 1.5 mg/dL (0.6-1.3); MAGNESIUM 2.2 mg/dL (1.8-2.4); PHOSPHORUS 2.4 mg/dL (2.5-4.9); TOTAL PROTEIN, SERUM 6.5 g/dL (6.4-8.2)
[2020-08-14 12:00] VITALS: BP 142/65
--- NOTE | 2020-08-14 12:34 | NUR ---
[employer] FACER NOTE LEFT VOICE MESSAGE FOR DR. PEREZ NOTIFYING HIM OF THE CANCELLATION OF SURGERY DUE TO FEVER.
[2020-08-14] MEDS: ACETAMINOPHEN 325 MG TABLET PO PRN (12:41)
[2020-08-14 16:00] VITALS: BP 129/68
[2020-08-14] MEDS: HYDROCODONE/APAP 10/325MG TABLET PO PRN ×4 (16:21→18:52)
[2020-08-14] MEDS ORDERED: K PHOS NEUTRAL 250 MG TABLET PO ONE (17:00)
[2020-08-14] MEDS ORDERED: KEY,NONCONTROL,TO KEEP IN PYXI 1 EA MC ONE (17:51)
--- NOTE | 2020-08-14 18:37 | NUR ---
RN OPENING NOTE PATIENT IS IN BED WITH HOB AT SEMI FOWLERS POSITION. 2L NC APPLIED. PATIENT IS AOX3 AND HAS PERIODS OF TALKING TO HERSELF. NSR NOTED ON MONITOR. AMAYA CATHETER IS IN PLACE. R SHOULD SLING IS IN PLACE. LHAND #20 IS PATENT, INTACT, AND HAS NO SIGNS OF INFILTRATION. BED IS LOCKED IN THE LOWEST POSITION, 3 GUARD RAILS RAISED, CALL SCHNEIDER WITHIN REACH, AND ALL HOSPITAL SAFETY PRECAUTIONS ARE BEING FOLLOWED. WILL ENDORSE TO OIL DEVELOPER RN. Addendum: 08/14/20 at 1841 by JORGE GOODWIN RN *RN CLOSING NOTE*
--- NOTE | 2020-08-14 19:30 | NUR ---
RN OPENING NOTE RECEIVED PATIENT IN BED RESTING ALERT ORIENTED X3 ABLE TO MAKE NEEDS KNOWN ON MONITORING FOR COVID POSITIVE AND DROPLET/CONTACT ISOLATION NPO AFTER MIDNIGHT FOR POSSIBLE SURGERY FOR RIGHT SHOULDER DISLOCATED IV SITE IS ON LEFT HAND INTACT PATIENT ON IV HYDRATION, KCL D51/2NS 75CC/HR CALL LIGHT WITHIN REACH, SAFETY MEASURE IMPLEMENTED CONTINUE TO MONITOR.
[2020-08-14 20:00] VITALS: BP 133/88
[2020-08-14] MEDS: ATORVASTATIN 10 MG TABLET PO SCH (21:09)
[2020-08-14] MEDS: QUETIAPINE FUMARATE 100 MG TABLET PO SCH (21:09)
[2020-08-14] MEDS: BISACODYL (5 MG) 5 MG TABLET.DR PO SCH (23:35)
[2020-08-15] VITALS: BP 158/97
[2020-08-15] MEDS: ACETAMINOPHEN 325 MG TABLET PO PRN ×2 (00:28→16:35)
[2020-08-15 04:00] VITALS: BP 141/70
[2020-08-15 06:28] LABS: CALCIUM, SERUM 7.8 mg/dL (8.5-10.1); CREATININE 1.5 mg/dL (0.6-1.3); PHOSPHORUS 3.5 mg/dL (2.5-4.9); POTASSIUM 4.2 mmol/L (3.5-5.1)
--- NOTE | 2020-08-15 07:27 | NUR ---
RN CLOSING NOTE PATIENT REMAINS ON ALERT ORIENTED X3 VERBALLY RESPONSIVE NO SOB NOT ACUTE DISTRESS NOTED ENDORSE NEXT COMING SHIFT FOR CONTINUATION OF CARE.
--- NOTE | 2020-08-15 07:30 | NUR ---
RN OPENING NOTES PATIENT PRESENT IN BED, SLEEPING, RESPONDS TO VOICE, A/OX3, ON 2L OF O2, SPO2 IS 100%, NO SOB OR RESP DISTRESS NOTED OR REPORT BY PATIENT, DENIES PAIN OR DISCOMFORT, R SHOULDER SLING/DRESSING IN PLACE, INTACT, NSR ON TELE-MONITOR, DIETARY STATUS PENDING DUE POSSIBLE SURGERY, L HAND IV LINE INTACT AND PATENT, AMAYA CATH IN PLACE, DRAINING YELLOW URINE BY GRAVITY, SAFETY PRECAUTIONS IN PLACE, CALL LIGHT IN REACH, WILL CONT TO MONITOR
[2020-08-15 08:00] VITALS: BP 120/63
[2020-08-15] MEDS: TOPIRAMATE 25 MG TABLET PO SCH ×2 (09:00→21:06)
[2020-08-15] MEDS: BENZTROPINE MESYLATE (1 MG) 1 MG TABLET PO SCH ×3 (09:00→16:36)
[2020-08-15] MEDS: ESCITALOPRAM OXALATE (10 MG) 10 MG TABLET PO SCH (09:00)
[2020-08-15] MEDS: clonazePAM 1 MG TABLET PO SCH ×2 (09:00→16:35)
[2020-08-15] MEDS: AMLODIPINE BESYLATE 5 MG TABLET PO SCH (09:00)
[2020-08-15] MEDS: DOCUSATE SODIUM 250 MG CAPSULE PO SCH (09:00)
--- NOTE | 2020-08-15 10:51 | NUR ---
RN NOTE SPOKE WITH DR ADAMS, POSTPONED SURGERY DUE PATIENT'S MEDICAL COVID STATUS, WILL FOLLOW UP AFTER PATIENT IS NEGATIVE RECOMMENDED REVERSE SHOULDER REPLACEMENT
--- NOTE | 2020-08-15 11:00 | NUR ---
REMOVED NC , SPO2 100%, RESPIRATIONS EVEN AND UNLABORED, WILL CONT TO MONITOR
[2020-08-15 12:00] VITALS: BP 120/63
[2020-08-15 16:00] VITALS: BP 132/74
--- NOTE | 2020-08-15 18:07 | NUR ---
reassess temperature after Tylenol, 99.2F
--- NOTE | 2020-08-15 18:37 | NUR ---
RN CLOSING NOTES RESTING COMFORTABLY, PROVIDED WITH DESIRABLE FOOD CHOICES, COMFORT NEEDS ATTENDED, MEDICATIONS GIVEN, CLEANED AND REPOSITIONED, WILL ENDORSE TO PM SHIFT RN FOR SERVANDO
[2020-08-15] MEDS: IV D5/0.45 NACL W/20 MEQ KCL 1L IV PRN ×2 (18:41)
--- NOTE | 2020-08-15 19:10 | NUR ---
RN OPENING NOTE RECEIVED PATIENT IN BED RESTING ALERT ORIENTED X3 TALK TO SELF,ABLE TO MAKE NEEDS KNOWN ON MONITORING FOR COVID POSITIVE AND DROPLET/CONTACT ISOLATION, IV SITE IS ON LEFT HAND INTACT PATIENT ON IV HYDRATION, KCL D51/2NS 75CC/HR CALL LIGHT WITHIN REACH, SAFETY MEASURE IMPLEMENTED CONTINUE TO MONITOR,AMAYA CATHETER IN PLACE URINE DRAINING YELLOW,CALL LIGHT WITHIN REACH,SAFETY MEASURE IMPLEMENTED CONTINUE TO MONITOR.
[2020-08-15 20:00] VITALS: BP 115/61
[2020-08-15] MEDS: QUETIAPINE FUMARATE 100 MG TABLET PO SCH (21:06)
[2020-08-15] MEDS: ATORVASTATIN 10 MG TABLET PO SCH (21:06)
[2020-08-15] MEDS: HYDROCODONE/APAP 10/325MG TABLET PO PRN (22:32)
[2020-08-16] VITALS: BP 116/62
[2020-08-16 04:00] VITALS: BP 116/53
--- NOTE | 2020-08-16 07:03 | NUR ---
RN CLOSING NOTE PATIENT REMAINS ON ALERT ORIENTED X3 VERBALLY RESPONSIVE,ABLE TO MAKE NEEDS KNOWN,TALK TO SELF, NO SOB NOT ACUTE DISTRESS NOTED SHE IS ON ROOM AIR O2:94% ALL DUE MEDS GIVEN MD ORDERED,AMAYA CATHETER IN PLACE URINE DRAINING YELLOW AND CLEAR,IV HYDRATION KCL,D51/2NS 75CC/HR IV SITE IS ON LEFT HAND INTACT PATENT,BED ALARM IS ON AND LOCKED,KEPT CALL LIGHT WITHIN REACH,ENDORSE NEXT COMING SHIFT FOR CONTINUATION OF CARE.
--- NOTE | 2020-08-16 07:30 | NUR ---
RN OPENING NOTES RECEIVED PATIENT IN BED RESTING ALERT ORIENTED X3 TALK TO SELF,ABLE TO MAKE NEEDS KNOWN. NOT IN ANY ACUTE DISTRESS. IV SITE IS ON LEFT HAND INTACT PATIENT ON IV HYDRATION, KCL D51/2NS 75CC/HR CALL LIGHT WITHIN REACH. WITH ORDERS FOR DISCHARGE. ETA STAINED GLASS JOINER TIME 1900. SAFETY MEASURE IMPLEMENTED CONTINUE TO MONITOR,AMAYA CATHETER IN PLACE URINE DRAINING YELLOW,CALL LIGHT WITHIN REACH,SAFETY MEASURE IMPLEMENTED CONTINUE TO MONITOR.
[2020-08-16 08:00] VITALS: BP 116/53
[2020-08-16] MEDS: AMLODIPINE BESYLATE 5 MG TABLET PO SCH (09:00)
[2020-08-16] MEDS: DOCUSATE SODIUM 250 MG CAPSULE PO SCH (10:37)
[2020-08-16] MEDS: clonazePAM 1 MG TABLET PO SCH ×2 (10:37→18:10)
[2020-08-16] MEDS: BENZTROPINE MESYLATE (1 MG) 1 MG TABLET PO SCH ×3 (10:38→18:10)
[2020-08-16] MEDS: ESCITALOPRAM OXALATE (10 MG) 10 MG TABLET PO SCH (10:38)
[2020-08-16] MEDS: TOPIRAMATE 25 MG TABLET PO SCH (10:42)
[2020-08-16] MEDS: IV D5/0.45 NACL W/20 MEQ KCL 1L IV PRN ×2 (10:46)
[2020-08-16 12:00] VITALS: BP 120/65
[2020-08-16 16:00] VITALS: BP 115/58
[2020-08-16] MEDS ORDERED: VANCOMYCIN 1.5 GM in IV D5W 500 ML IV SCH (16:00)
--- NOTE | 2020-08-16 18:13 | NUR ---
RN CLOSING NOTES RECEIVED PATIENT IN BED RESTING ALERT ORIENTED X3 TALK TO SELF,ABLE TO MAKE NEEDS KNOWN. NOT IN ANY ACUTE DISTRESS. IV SITE ON LEFT HAND#22, INTACT. WITH ORDERS FOR DISCHARGE. ETA ROD BENDING MACHINE OPERATOR TIME 1900. SAFETY MEASURE IMPLEMENTED CONTINUE TO MONITOR,AMAYA CATHETER IN PLACE URINE DRAINING YELLOW,CALL LIGHT WITHIN REACH,SAFETY MEASURE IMPLEMENTED CONTINUE TO MONITOR. Addendum: 08/16/20 at 1835 by VALERIO BRUNO RN PT TO BE DISCHARGED TO [facility]. REPORT GIVEN TO FARZANEH NAVA)
--- NOTE | 2020-08-16 20:20 | NUR ---
MS RN NOTE PT IN BED AWAKE. NO DISTRESS OR DISCOMFORT NOTED. DENIES PAIN. REMAIN IN COVID ISOLATION, ISOLATION PRECAUTIONS TAKEN. VANCO IV ATB INFUSING AT THIS TIME. AMBULANCE PERSONAL ARRIVED INFORMED THEM IN 1/2 HR ATB WILL BE FINISHED, THEN OK TO TRANSFER. VSS.
--- NOTE | 2020-08-16 21:40 | NUR ---
MS RN NOTE AMBULANCE ARRIVED TO PICKUP THE PT. VANCO IV ATB FINISHED. PT IN NO DISTRESS. LEFT THE IV LINE IN DUE TO PT IS HARD STICK AND ON VANCO IV ATB'S. F/C INTACT AND PATENT DRAINING YELLOWISH COLOR URINE. LT ARM WITH SLING ON. PT LEFT THE ROOM VIA [facility] TO [facility].
== END 2020-08-16 21:40 | DRG 177 ==
LOC: ER 20:45 → TRANSITION 08-12 00:24 → TELE1 08-12 17:14 → MEDSG1 08-15 10:57
PROVIDERS: ADMIT Internal Medicine
PROC: 0RSJXZZ Reposition Right Shoulder Joint, External Approach (ICD-10-PCS; principal; 2020-08-13)
DX: U07.1 COVID-19 (principal); N17.0 Acute kidney failure with tubular necrosis; J12.82 Pneumonia due to coronavirus disease 2019; G21.0 Malignant neuroleptic syndrome; Z68.41 Body mass index [BMI] 40.0-44.9, adult; Z88.5 Allergy status to narcotic agent; M24.411 Recurrent dislocation, right shoulder; E78.5 Hyperlipidemia, unspecified; F20.9 Schizophrenia, unspecified; F41.9 Anxiety disorder, unspecified; F32.9 Major depressive disorder, single episode, unspecified; Z85.3 Personal history of malignant neoplasm of breast; G40.909 Epilepsy, unspecified, not intractable, without status epilepticus; E03.9 Hypothyroidism, unspecified; E66.01 Morbid (severe) obesity due to excess calories; Z88.8 Allergy status to other drugs, medicaments and biological substances; Z79.51 Long term (current) use of inhaled steroids; Z79.899 Other long term (current) drug therapy; I25.10 Atherosclerotic heart disease of native coronary artery without angina pectoris; I70.0 Atherosclerosis of aorta; Z95.0 Presence of cardiac pacemaker; J45.909 Unspecified asthma, uncomplicated; M19.90 Unspecified osteoarthritis, unspecified site; J32.0 Chronic maxillary sinusitis; R32 Unspecified urinary incontinence; F39 Unspecified mood [affective] disorder
CPT/HCPCS: 36415; 70450-TC; 71045-TC; 72125-TC; 73030-TC; 73564-TC; 80048-TC; 80053-TC; 80061-TC; 80076-TC; 83735-TC; 84100-TC; 84484-TC; 84703-TC; 85025-TC; 85730-TC; 87040-TC; 87081-TC; G0378; G0500; J0330; J0456; J2405; J2704; J3010; J3370; J3480; J3490; J7060; U0003

== ENCOUNTER 2021-04-25 13:42 | Inpatient (IN) | payer MEDICARE, OTHER ==
[~2021-04-25] VITALS: Ht 175.3 cm; Wt 142.9 kg
--- NOTE | 2021-04-25 13:55 | NUR ---
TO ER BED 4, BIBRA 860 C/O OF RT SHOULDER PAIN X1DAY, SAME SHOULDER HAD SURGERY ON 3YRS, ATTACHED TO MONITOR, AWAITING MD BUSH
[2021-04-25] MEDS ORDERED: FENTANYL PF 100MCG/2ML AMPUL ONE ×2 (14:52→17:18)
--- NOTE | 2021-04-25 14:59 | NUR ---
CALLED [facility] [phone]
[2021-04-25] MEDS ORDERED: FENTANYL PF 100MCG/2ML AMPUL IV ONE ×2 (15:00→17:30)
--- NOTE | 2021-04-25 17:45 | NUR ---
covid swab done and sent to the lab
--- NOTE | 2021-04-25 17:46 | NUR ---
[facility] CALLED ADJUNCT FACULTY INSTRUCTOR PAGED.
[2021-04-25] MEDS ORDERED: ERGO500093 PO (17:54)
[2021-04-25] MEDS ORDERED: ZOLP5TAB8 PO (17:54)
[2021-04-25] MEDS ORDERED: FERR325T23 PO (17:54)
[2021-04-25] MEDS ORDERED: COLC0.6T67 PO (17:54)
[2021-04-25] MEDS ORDERED: POLY15DR40 LEFTEYE (17:54)
[2021-04-25] MEDS ORDERED: RISP0.2515 PO (17:54)
[2021-04-25] MEDS ORDERED: RIVA10TA PO (17:54)
--- NOTE | 2021-04-25 18:35 | NUR ---
REPORT GIVEN TO ELIJAH RAY FOR SERVANDO WITH EMPHASIS ON NPO STATUS DUE TO SURGERY TOMORROW AT 0730.
--- NOTE | 2021-04-25 18:40 | NUR ---
RN NOTE PATIENT WILL BE NPO PER MD ORDERED FOR RIGHT SHOULDER SURGERY AT 0730 AM TOMORROW.
--- NOTE | 2021-04-25 18:40 | NUR ---
RN NOTE RECEIVED REPORT FROM CORY HARPER, WILL CONTINUE PLAN OF CARE ORDERED. WILL ENDORSE TO UPCOMING NOC SHIFT.
--- NOTE | 2021-04-25 19:30 | NUR ---
RN NOTE RECEIVED PATIENT IN BED, AWAKE, ALERT, AND VERBALLY RESPONSIVE. PATIENT AOX2. ABLE TO MAKE NEEDS KNOWN. POOR CONCENTRATION AND TAKES TIME TO RESPOND. BREATHING EVEN AND UNLABORED. ON ROOM AIR, WITH SATURATION OF 99 PERCENT. NO SOB NOTED, NO COUGH/CONGESTION. SKIN WARM AND DRY TO TOUCH. AFEBRILE. PATIENT NOTED WITH RIGHT UPPER ARM WEAKNESS. NOTED WITH LEFT HAND IV 22G. PATENT WITH GOOD BLOOD RETURN. PATIENT TO BE NPO AFTER MIDNIGHT FOR AM SURGERY. KEPT CLEAN AND DRY, BED LOCKED, IN LOW POSITION, CALL LIGHT WITHIN REACH.
[2021-04-25 20:00] VITALS: BP 142/66
[2021-04-25] MEDS ORDERED: ACETAMINOPHEN 325 MG TABLET PO PRN (20:00)
[2021-04-25] MEDS ORDERED: ONDANSETRON HCL/PF 4 MG/2 ML VIAL IVP PRN (20:00)
[2021-04-25] MEDS ORDERED: POLYVINYL ALCOHOL 15 ML BOTTLE EACHEYE PRN (20:00)
[2021-04-25] MEDS ORDERED: ENOXAPARIN SODIUM 40 MG/0.4 ML DISP.SYRIN SQ SCH (20:00)
[2021-04-25] MEDS ORDERED: MORPHINE SULFATE INJ 2 MG/ML DISP.SYRIN IV PRN (20:00)
[2021-04-25] MEDS: IV NS 0.9% 1,000 ML IV PRN (21:08)
[2021-04-25] MEDS: FERROUS SULFATE (325 MG) 325 MG/TAB TABLET PO SCH (21:09)
[2021-04-25] MEDS: clonazePAM 1 MG TABLET PO SCH (21:09)
[2021-04-25] MEDS: ATORVASTATIN 10 MG TABLET PO SCH (21:09)
[2021-04-25] MEDS: ZOLPIDEM TARTRATE 5 MG TABLET PO SCH ×2 (21:10→22:00)
[2021-04-25] MEDS: BENZTROPINE MESYLATE (1 MG) 1 MG TABLET PO SCH (21:10)
[2021-04-25] MEDS: QUETIAPINE FUMARATE 100 MG TABLET PO SCH (21:10)
[2021-04-25] MEDS: TOPIRAMATE 25 MG TABLET PO SCH (21:11)
[2021-04-25] MEDS: risperiDONE 0.25 MG TABLET PO SCH (21:11)
[2021-04-26 04:00] VITALS: BP 149/83
[2021-04-26 06:29] LABS: BASOPHILS % (AUTO) 0.6 % (0.0-2.0); EOSINOPHILS % (AUTO) 9.3 % (0.0-6.0); HEMATOCRIT 40 % (33-45); HEMOGLOBIN 13.3 g/dL (11.5-14.8); LYMPHOCYTES # (AUTO) 1.1 K/uL (0.8-4.8); MEAN CORPUSCULAR HGB CONC 33 g/dl (31.0-36.0); MEAN CORPUSCULAR VOLUME 97 fL (82-100); MONOCYTES # (AUTO) 0.6 K/uL (0.1-1.30); NEUTROPHILS % (AUTO) 57.1 % (43.0-81.0); PLATELET COUNT (AUTO) 188 K/uL (150-450); RED BLOOD CELL COUNT(AUTO) 4.17 MIL/uL (4.0-5.2); WHITE BLOOD COUNT (AUTO) 5.2 K/uL (4.3-11.0)
--- NOTE | 2021-04-26 06:48 | NUR ---
RN NOTE NO SIGNIFICANT CHANGES DURING SHIFT. PATIENT AOX2. POOR CONCENTRATION. EASILY AROUSABLE. ABLE TO MAKE NEEDS KNOWN. BREATHING EVEN AND UNLABORED. ON ROOM AIR. IV ACCESS ON LEFT HAND 20G. PATENT, RUNNING NS @ 75 ML/HR. TOLERATING WELL. PATIENT NPO SINCE 2300, 04/25. SLEPT WELL THROUGH THE NIGHT. KEPT CLEAN AND DRY, ALL NEEDS ATTENDED. CALL LIGHT WITHIN REACH. WILL ENDORSE PLAN OF CARE TO NEXT SHIFT ACCORDINGLY.
[2021-04-26 07:04] LABS: CALCIUM, SERUM 9.2 mg/dL (8.5-10.1); CREATININE 1.6 mg/dL (0.6-1.3); MAGNESIUM 2.2 mg/dL (1.8-2.4); PHOSPHORUS 4.5 mg/dL (2.5-4.9); POTASSIUM 4.1 mmol/L (3.5-5.1)
[2021-04-26] MEDS ORDERED: BUPIVACAINE 0.25% 75 MG/30 ML VIAL ONE (07:13)
[2021-04-26] MEDS ORDERED: LIDOCAINE 0.5%-EPI 1:200,000 50 ML VIAL ONE (07:13)
--- NOTE | 2021-04-26 07:38 | NUR ---
RN NOTE PATIENT IS CURRENTLY IN SURGERY.
--- NOTE | 2021-04-26 08:04 | NUR ---
WOUND CARE CONSULT: PT IS OFF UNIT IN O.R. AT THIS TIME. WILL SEE PT PT CONDITION PERMITS.
[2021-04-26] MEDS: DOCUSATE SODIUM 250 MG CAPSULE PO SCH ×2 (08:13→09:36)
[2021-04-26] MEDS: BENZTROPINE MESYLATE (1 MG) 1 MG TABLET PO SCH ×4 (08:13→16:15)
[2021-04-26] MEDS: COLCHICINE 0.6 MG TABLET PO SCH ×2 (08:13→09:32)
[2021-04-26] MEDS: clonazePAM 1 MG TABLET PO SCH ×3 (08:14→16:15)
[2021-04-26] MEDS: AMLODIPINE BESYLATE 5 MG TABLET PO SCH ×2 (08:14→09:37)
[2021-04-26] MEDS: TOPIRAMATE 25 MG TABLET PO SCH ×3 (08:14→20:48)
[2021-04-26] MEDS: FERROUS SULFATE (325 MG) 325 MG/TAB TABLET PO SCH ×3 (08:14→16:15)
[2021-04-26] MEDS: ESCITALOPRAM OXALATE (10 MG) 10 MG TABLET PO SCH ×2 (08:14→09:36)
--- NOTE | 2021-04-26 09:57 | NUR ---
WOUND CARE CONSULT: UNABLE TO TURN PT FULLY FOR SKIN ASSESSMENT DUE TO PT DISCOMFORT. LIMITED SKIN ASSESSMENT TODAY. REVIEWED CHART, NURSING DOCUMENTATION AND PHOTOS WHICH INDICATE MOISTURE ASSOCIATED SKIN DAMAGE TO GLUTEAL CREASE AND RASH TO LEFT BREASTFOLD, PRESENT ON ADMISSION. RECOMMENDATIONS MADE FOR SKIN PROTECTION. DISCUSSED WITH NURSING STAFF. MD IN AGREEMENT WITH PLAN OF CARE. PT IS ON ASHAWAY ISOFLEX LOW AIRLOSS BED.
[2021-04-26] MEDS: Z GUARD REMEDY 2 OZ OINT TP SCH (10:26)
[2021-04-26 16:00] VITALS: BP 151/64
[2021-04-26] MEDS: RIVAROXABAN 10 MG TABLET PO SCH (16:15)
[2021-04-26] MEDS: CLOTRIMAZOLE 1% 15 GM TUBE TP SCH (17:04)
[2021-04-26] MEDS: ASPIRIN 81 MG TAB.CHEW PO SCH (17:04)
[2021-04-26] MEDS: IV NS 0.9% 1,000 ML IV PRN (18:07)
--- NOTE | 2021-04-26 18:45 | NUR ---
RN NOTE PATIENT IS IN BED WITH HOB AT SEMI FOWLERS POSITION. PATIENT IS ON ROOM AIR WITH NO SIGNS OF LABORED BREATHING. PATIENT IS AOX2. LHAND IV ACCESS IS PATENT AND INTACT. BED IS LOCKED IN THE LOWEST POSITION, 3 GUARD RAILS RAISED, CALL SCHNEIDER WITHIN REACH, AND ALL HOSPITAL SAFETY PRECAUTIONS ARE BEING FOLLOWED. ALL DUE MEDS GIVEN AND PATIENT REMAINED STABLE THROUGHOUT SHIFT. WILL ENDORSE TO LOPPER RN.
[2021-04-26 20:00] VITALS: BP 119/67
--- NOTE | 2021-04-26 20:00 | NUR ---
RN NOTE PATIENT IS IN BED AWAKE A/OX2 ABLE TO MAKE NEEDS KNOWN , ON ROOM AIR SATING 94% NO SOB NO DISTRESS NOTED S/P RIGHT SHOULDER CLOSED REDUCTION , NO C/O OF PAIN PTS LOOKS COMFORTABLE ON TELE SR ON THE MONITOR LHAND IV ACCESS IS PATENT AND INTACT.WITH IVF OF NS AT 75CC/HR INFUSING WELL BED IS LOCKED IN THE LOWEST POSITION, BILAERAL 1/2 SIDE RAILS UP FOR SAFETY, CALL SCHNEIDER WITHIN REACH, AND ALL HOSPITAL SAFETY PRECAUTIONS ARE BEING FOLLOWED. ALL DUE MEDS GIVEN ALL NEEDS ATTENDED TOO .WILL CONTINUE TO MONITOR PTS.
[2021-04-26] MEDS: ZOLPIDEM TARTRATE 5 MG TABLET PO SCH (21:01)
[2021-04-26] MEDS: ATORVASTATIN 10 MG TABLET PO SCH (21:01)
[2021-04-26] MEDS: risperiDONE 0.25 MG TABLET PO SCH (21:02)
[2021-04-26] MEDS: QUETIAPINE FUMARATE 100 MG TABLET PO SCH (21:02)
[2021-04-27] VITALS: BP 141/81
[2021-04-27 04:00] VITALS: BP 146/89
--- NOTE | 2021-04-27 06:37 | NUR ---
SATURATION DIVER NOTE REMAINS IN BED AWAKE, ALERT AND RESPONSIVE. AOX2, NO SOB NO DISTRESS BREATHING EVEN AND UNLABORED.ON R/A WITH SATURATION OF 96 %. DENIES PAIN AT THIS TIME. ALL NEEDS ATTENDED TOO. KEPT CLEAN AND DRY. CALL LIGHT WITHIN REACH. WILL ENDORSE TO RN DAY SHIFT FOR CONTINUITY OF CARE.
--- NOTE | 2021-04-27 07:38 | NUR ---
RN OPENING NOTES; RECEIVED PT IN SUPINE POS. A/OX2-3. NO SOB NOTED, NO C/O PAIN. NO DISTRESS NOTED AT THIS TIME. PT TOLERATING RA SATING AT 100%. SAFETY MEASURES RENDERED, BED IN LOWEST POS. LOCKED WITH CALL WITHIN REACH. WILL CONTINUE TO MONITOR.
[2021-04-27 08:00] VITALS: BP 111/60
[2021-04-27] MEDS: DOCUSATE SODIUM 250 MG CAPSULE PO SCH (08:14)
[2021-04-27] MEDS: ASPIRIN 81 MG TAB.CHEW PO SCH (08:14)
[2021-04-27] MEDS: ESCITALOPRAM OXALATE (10 MG) 10 MG TABLET PO SCH (08:14)
[2021-04-27] MEDS: FERROUS SULFATE (325 MG) 325 MG/TAB TABLET PO SCH ×2 (08:14→16:10)
[2021-04-27] MEDS: COLCHICINE 0.6 MG TABLET PO SCH (08:14)
[2021-04-27] MEDS: BENZTROPINE MESYLATE (1 MG) 1 MG TABLET PO SCH ×3 (08:14→16:10)
[2021-04-27] MEDS: clonazePAM 1 MG TABLET PO SCH ×2 (08:14→16:10)
[2021-04-27] MEDS: TOPIRAMATE 25 MG TABLET PO SCH (08:14)
[2021-04-27] MEDS: AMLODIPINE BESYLATE 5 MG TABLET PO SCH (08:15)
[2021-04-27] MEDS: CLOTRIMAZOLE 1% 15 GM TUBE TP SCH ×2 (08:20→16:12)
[2021-04-27] MEDS: Z GUARD REMEDY 2 OZ OINT TP PRN (08:20)
[2021-04-27] MEDS: Z GUARD REMEDY 2 OZ OINT TP SCH (09:09)
[2021-04-27 12:00] VITALS: BP 140/80
[2021-04-27 12:24] LABS: BASOPHILS % (AUTO) 0.6 % (0.0-2.0); EOSINOPHILS % (AUTO) 7.2 % (0.0-6.0); HEMATOCRIT 42 % (33-45); HEMOGLOBIN 14.1 g/dL (11.5-14.8); LYMPHOCYTES % (AUTO) 15.2 % (20.0-44.0); MEAN CORPUSCULAR HGB CONC 33 g/dl (31.0-36.0); MEAN CORPUSCULAR VOLUME 95 fL (82-100); MONOCYTES # (AUTO) 0.5 K/uL (0.1-1.30); MONOCYTES % (AUTO) 7.6 % (2.0-12.0); NEUTROPHILS # (AUTO) 4.5 K/uL (1.8-8.9); NEUTROPHILS % (AUTO) 69.4 % (43.0-81.0); PLATELET COUNT (AUTO) 188 K/uL (150-450); RED BLOOD CELL COUNT(AUTO) 4.42 MIL/uL (4.0-5.2); WHITE BLOOD COUNT (AUTO) 6.5 K/uL (4.3-11.0)
[2021-04-27 12:31] LABS: CALCIUM, SERUM 8.9 mg/dL (8.5-10.1); CREATININE 1.6 mg/dL (0.6-1.3)
[2021-04-27 16:00] VITALS: BP 112/52
[2021-04-27] MEDS: RIVAROXABAN 10 MG TABLET PO SCH (16:11)
--- NOTE | 2021-04-27 18:07 | NUR ---
RN CLOSING NOTES; PT IN ROOM RESTING. PT A/OX2. PT TO BE DISCHARGED BACK TO [facility]. 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 ALL MEDICATIONS GIVEN AND TOLERATED WELL. NO SIGNIFICANT CHANGES IN PT HEALTH DURING SHIFT. SAFETY MEASURES RENDERED, PT KEPT CLEAN, DRY, AND COMFORTABLE. BED LOCKED, IN LOWEST POS. SIDE RAILS UP WITH CALL LIGHT WITHIN REACH.
--- NOTE | 2021-04-27 18:46 | NUR ---
PT DC'D NOTES; PT DC'D TO [facility]. DC INSTRUCTIONS GIVEN AND EXPLAINED, VERBALIZED UNDERSTANDING. ALL PAPERWORK SIGNED AND COMPLETED. ALL BELONGINGS SENT. PT LEFT IN STABLE CONDITION. PT ENDORSED TO AMBULANCE CREW TATIANNA ACCORDINGLY.
[2021-04-27] MEDS ORDERED: ATORVASTATIN 10 MG TABLET PO SCH (22:00)
[2021-04-28] MEDS ORDERED: ERGOCALCIFEROL (VITAMIN D 2) 50,000 UNIT CAPSULE PO SCH (09:00)
== END 2021-04-27 18:31 | DRG 559 ==
LOC: ER 13:45 → MEDSG1 18:33 → TELE1 04-26 18:52
PROVIDERS: ADMIT Nurse Practitioner Acute Care; ATTEND Nurse Practitioner Acute Care
PROC: 0RWJXJZ Revision of Synthetic Substitute in Right Shoulder Joint, External Approach (ICD-10-PCS; principal; 2021-04-26)
DX: T84.028A Dislocation of other internal joint prosthesis, initial encounter (principal); N17.0 Acute kidney failure with tubular necrosis; D68.59 Other primary thrombophilia; Y93.9 Activity, unspecified; X58.XXXA Exposure to other specified factors, initial encounter; I25.10 Atherosclerotic heart disease of native coronary artery without angina pectoris; M19.90 Unspecified osteoarthritis, unspecified site; Z20.822 Contact with and (suspected) exposure to COVID-19; Z86.16 Personal history of COVID-19; Z95.0 Presence of cardiac pacemaker; Z87.01 Personal history of pneumonia (recurrent); G40.909 Epilepsy, unspecified, not intractable, without status epilepticus; E03.9 Hypothyroidism, unspecified; E66.9 Obesity, unspecified; E78.5 Hyperlipidemia, unspecified; F20.9 Schizophrenia, unspecified; F41.9 Anxiety disorder, unspecified; I10 Essential (primary) hypertension; Z79.01 Long term (current) use of anticoagulants; Y83.8 Other surgical procedures as the cause of abnormal reaction of the patient, or of later complication, without mention of misadventure at the time of the procedure; Y92.89 Other specified places as the place of occurrence of the external cause
CPT/HCPCS: 36415; 73020; 73030-TC; 80048-TC; 80061-TC; 83735-TC; 84100-TC; 84703-TC; 85025-TC; 87081-TC; 97116-TC; 97530-TC; A4565; C9803; G0378; J2704; J3010; J3490; J7030

== ENCOUNTER 2021-05-18 01:36 | Inpatient (IN) | payer MEDICARE, OTHER ==
[~2021-05-18] VITALS: Ht 175.3 cm; Wt 141.5 kg
[~2021-05-18 01:36] MED LIST changes: -ALBU2.5V38 IH; -BISA5TAB10 PO; -BUDE10.2 IH; +COLC0.6T67 PO; +ERGO500093 PO; +FERR325T23 PO; -MAGN400O6 PO; -NITR100C PO; -PALI6TAB PO; +POLY15DR40 LEFTEYE; +RISP0.2515 PO; +RIVA10TA PO; +ZOLP5TAB8 PO
--- NOTE | 2021-05-18 01:53 | NUR ---
PT BIBRA C/O RT SHOULDER PAIN. PT AAOX4 BREATHING EVENLY EVENLY AND UNLABORED. PT STATES "IT GETS DISLOCATED". PT SKIN WARM AND DRY. MD AT BEDSIDE. LAC 20G INITIATED, BLOOD DRAWN AND SENT TO LAB. PT ATTACHED TO MONITOR AND POX. PT GIVEN BLANKET AND CALLLIGHT WITHIN REACH
--- NOTE | 2021-05-18 02:06 | NUR ---
xray at bedside
[2021-05-18] MEDS ORDERED: MORPHINE SULFATE INJ 2 MG/ML DISP.SYRIN IV ONE (02:30)
--- NOTE | 2021-05-18 02:30 | NUR ---
XRAY AT BEDSIDE
[2021-05-18] MEDS ORDERED: MORPHINE SULFATE INJ 4 MG/ML DISP.SYRIN ONE (02:35)
[2021-05-18 02:43] LABS: BASOPHILS % (AUTO) 0.5 % (0.0-2.0); EOSINOPHILS % (AUTO) 8.1 % (0.0-6.0); HEMATOCRIT 42 % (33-45); HEMOGLOBIN 13.9 g/dL (11.5-14.8); LYMPHOCYTES # (AUTO) 1.2 K/uL (0.8-4.8); MEAN CORPUSCULAR HGB CONC 33 g/dl (31.0-36.0); MEAN CORPUSCULAR VOLUME 97 fL (82-100); MONOCYTES # (AUTO) 0.5 K/uL (0.1-1.30); MONOCYTES % (AUTO) 6.9 % (2.0-12.0); NEUTROPHILS # (AUTO) 4.9 K/uL (1.8-8.9); NEUTROPHILS % (AUTO) 67.5 % (43.0-81.0); PLATELET COUNT (AUTO) 216 K/uL (150-450); RED BLOOD CELL COUNT(AUTO) 4.32 MIL/uL (4.0-5.2); WHITE BLOOD COUNT (AUTO) 7.3 K/uL (4.3-11.0)
[2021-05-18 02:56] LABS: CALCIUM, SERUM 8.7 mg/dL (8.5-10.1); CREATININE 1.6 mg/dL (0.6-1.3); POTASSIUM 3.7 mmol/L (3.5-5.1)
--- NOTE | 2021-05-18 03:02 | NUR ---
COVID SWABS SENT TO LAB
--- NOTE | 2021-05-18 03:23 | NUR ---
CALLED [facility] FOR BED
--- NOTE | 2021-05-18 04:01 | NUR ---
RE PAGED EPIC
[2021-05-18] MEDS ORDERED: ZOLPIDEM TARTRATE 5 MG TABLET PO PRN (05:00)
[2021-05-18] MEDS ORDERED: MAGNESIUM HYDROXIDE 30 ML UDC PO PRN (05:00)
[2021-05-18] MEDS ORDERED: ONDANSETRON HCL/PF 4 MG/2 ML VIAL IVP PRN (05:00)
[2021-05-18] MEDS ORDERED: ACETAMINOPHEN 325 MG TABLET PO PRN (05:00)
[2021-05-18] MEDS ORDERED: Z GUARD REMEDY 2 OZ OINT TP PRN (05:00)
[2021-05-18] MEDS ORDERED: MAG HYDROX/AL HYDROX/SIMETH 30 ML UDC PO PRN (05:00)
--- NOTE | 2021-05-18 05:49 | NUR ---
PT READJUSTED, NEEDS MET
--- NOTE | 2021-05-18 07:29 | NUR ---
MS BED 102
[2021-05-18] MEDS ORDERED: POLYVINYL ALCOHOL 15 ML BOTTLE OP PRN (07:30)
--- NOTE | 2021-05-18 07:36 | NUR ---
GAVE REPORT TO CORY PERKINS FOR SERVANDO
--- NOTE | 2021-05-18 08:22 | NUR ---
THE PATIENT IS TRANSFERED TO ROOM 102 IN STABLE CONDITION AND PER POLICY
--- NOTE | 2021-05-18 08:35 | NUR ---
MS RN ADMITTING NOTES RECEIVED PATIENT FROM OR IN MEDICALLY STABLE CONDITION. VS WNL. WILL CONTINUE TO MONITOR PATIENT.
[2021-05-18] MEDS: DOCUSATE SODIUM 250 MG CAPSULE PO SCH (09:01)
[2021-05-18] MEDS: TOPIRAMATE 25 MG TABLET PO SCH ×2 (09:01→21:59)
[2021-05-18] MEDS: BENZTROPINE MESYLATE (1 MG) 1 MG TABLET PO SCH ×3 (09:02→16:05)
[2021-05-18] MEDS: AMLODIPINE BESYLATE 5 MG TABLET PO SCH (09:02)
[2021-05-18] MEDS: FERROUS SULFATE (325 MG) 325 MG/TAB TABLET PO SCH ×2 (09:03→16:05)
[2021-05-18] MEDS: ESCITALOPRAM OXALATE (10 MG) 10 MG TABLET PO SCH (09:03)
[2021-05-18] MEDS: clonazePAM 1 MG TABLET PO SCH ×2 (09:03→16:06)
[2021-05-18] MEDS: COLCHICINE 0.6 MG TABLET PO SCH (09:29)
[2021-05-18] MEDS ORDERED: FUROSEMIDE 20 MG/2 ML VIAL IV ONE (15:30)
--- NOTE | 2021-05-18 15:40 | NUR ---
MS RN NOTES TRIED CALLING THE [facility] MULTIPLE TIMES DURING THE DAY USING ALL AVAILABLE PHONE NUMBERS; NO ONE IS PICKING UP THE PHONE. CALLED THE FACILITY TWICE ASKING FOR RECORDS OF WHEN, WHERE AND BY WHOM WAS THE SHOULDER FIXED DONE. SPOKE TO MAYRA AT THE FACILITY. THE ONLY INFO SHE WAS ABLE TO PROVED WAS THE MONTH AND YEAR 12/2019 WITH EVERYTHING ELSE, SHE SAID SHE WILL GET BACK TO [facility]. SHE WILL HAVE TO PULL OUT THE RECORDS FROM FROM THE STORAGE.
--- NOTE | 2021-05-18 16:30 | NUR ---
MS RN NOTES SURGEON SAW THE PATIENT AND POKE TO HER AND THE PROCEDURE. PATIENT UNDERSTOOD THE PROCEDURE AND GAVE HER CONSENT. CONSENTS SIGNED. CHECKLIST DONE.
[2021-05-18] MEDS ORDERED: RIVAROXABAN 10 MG TABLET PO SCH (17:00)
--- NOTE | 2021-05-18 17:07 | NUR ---
MS RN NOTES PATIENT TAKEN TO OR
[2021-05-18] MEDS ORDERED: ANESTHESIA TRAY IN PYXIS 1 EA TRAY MC ONE (17:08)
[2021-05-18] MEDS ORDERED: BUPIVACAINE 0.25% 75 MG/30 ML VIAL ONE ×2 (17:11)
[2021-05-18] MEDS ORDERED: MIDAZOLAM HCL 2 MG/2ML VIAL ONE (17:22)
[2021-05-18] MEDS ORDERED: FAMOTIDINE/PF INJ 20 MG/2 ML VIAL IV ONE (17:22)
[2021-05-18] MEDS ORDERED: FENTANYL PF 100MCG/2ML AMPUL ONE (17:22)
[2021-05-18] MEDS ORDERED: ROCURONIUM BROMIDE 50 MG/5 ML ONE (17:23)
[2021-05-18] MEDS ORDERED: SUCCINYLCHOLINE CHLORIDE 20 MG/ML VIAL ONE (17:23)
--- NOTE | 2021-05-18 17:30 | NUR ---
MS RN NOTES PATIENT LEFT ONE NECKLACE WITH CROSS WITH THE NURSE. THE BAG TAKEN TO NURSING HAND SUTURE WINDER FOR SAFETY. PATIENT WANTS IT BACK SOON SHE IS BACK FROM PROCEDURE.
[2021-05-18] MEDS ORDERED: BACITRACIN ZINC OINT PACKET 1 EA PACKET TP ONE (18:05)
--- NOTE | 2021-05-18 18:53 | NUR ---
MS RN NOTES PATIENT STILL IN OR. WILL ENDORSE REPORT TO SUPERVISOR EPOXY FABRICATION NURSE FOR SERVANDO
[2021-05-18 20:00] VITALS: BP 138/86
[2021-05-18] MEDS ORDERED: QUETIAPINE FUMARATE 100 MG TABLET PO SCH (22:00)
[2021-05-18] MEDS ORDERED: risperiDONE 0.25 MG TABLET PO SCH (22:00)
[2021-05-18] MEDS ORDERED: ATORVASTATIN 10 MG TABLET PO SCH (22:00)
[2021-05-19] MEDS ORDERED: ERGOCALCIFEROL (VITAMIN D 2) 50,000 UNIT CAPSULE PO SCH (05:00)
--- NOTE | 2021-05-19 07:43 | NUR ---
MS/RN OPENING NOTES RECEIVED PATIENT ON BED. PATIENT IS SLEEPING EASILY AWAKEN BY NAME. PATIENT IS ON ROOM AIR. PATIENT IN NO APPARENT RESPIRATORY DISTRESS NOTED. NO SIGN AND SYMPTOM OF PAIN NOTED AT THIS TIME. WILL CONTINUE TO MONITOR.
--- NOTE | 2021-05-19 07:47 | NUR ---
MS/RN NOTES PATIENT REFUSED MORNING BLOOD DRAW PER GROUP TEACHER RN. WILL FOLLOW UP.
[2021-05-19 08:00] VITALS: BP 135/85
[2021-05-19] MEDS: TOPIRAMATE 25 MG TABLET PO SCH (08:27)
[2021-05-19] MEDS: BENZTROPINE MESYLATE (1 MG) 1 MG TABLET PO SCH (08:27)
[2021-05-19] MEDS: ESCITALOPRAM OXALATE (10 MG) 10 MG TABLET PO SCH (08:27)
[2021-05-19] MEDS: FERROUS SULFATE (325 MG) 325 MG/TAB TABLET PO SCH (08:27)
[2021-05-19] MEDS: DOCUSATE SODIUM 250 MG CAPSULE PO SCH (08:28)
[2021-05-19] MEDS: clonazePAM 1 MG TABLET PO SCH (08:28)
[2021-05-19 08:29] VITALS: BP 135/70
[2021-05-19] MEDS: AMLODIPINE BESYLATE 5 MG TABLET PO SCH (08:29)
[2021-05-19] MEDS: COLCHICINE 0.6 MG TABLET PO SCH (09:00)
[2021-05-19 12:19] LABS: BASOPHILS % (AUTO) 0.3 % (0.0-2.0); EOSINOPHILS % (AUTO) 3.4 % (0.0-6.0); HEMATOCRIT 40 % (33-45); HEMOGLOBIN 13.3 g/dL (11.5-14.8); LYMPHOCYTES # (AUTO) 0.5 K/uL (0.8-4.8); LYMPHOCYTES % (AUTO) 7.1 % (20.0-44.0); MEAN CORPUSCULAR HGB CONC 33 g/dl (31.0-36.0); MEAN CORPUSCULAR VOLUME 96 fL (82-100); MONOCYTES # (AUTO) 0.4 K/uL (0.1-1.30); MONOCYTES % (AUTO) 5.8 % (2.0-12.0); NEUTROPHILS # (AUTO) 5.3 K/uL (1.8-8.9); NEUTROPHILS % (AUTO) 83.4 % (43.0-81.0); PLATELET COUNT (AUTO) 211 K/uL (150-450); RED BLOOD CELL COUNT(AUTO) 4.19 MIL/uL (4.0-5.2); WHITE BLOOD COUNT (AUTO) 6.4 K/uL (4.3-11.0)
[2021-05-19 12:27] LABS: CALCIUM, SERUM 8.3 mg/dL (8.5-10.1); CREATININE 1.5 mg/dL (0.6-1.3); MAGNESIUM 2.5 mg/dL (1.8-2.4); PHOSPHORUS 2.8 mg/dL (2.5-4.9); POTASSIUM 3.8 mmol/L (3.5-5.1)
--- NOTE | 2021-05-19 13:48 | NUR ---
RN NOTES PATIENT IS ALERT AND ORIENTED X2-3. PATIENT IS ON ROOM AIR. PATIENT IN NO APPARENT RESPIRATORY DISTRESS NOTED. SEEN AND EXAMINED BY MD WITH ORDERS MADE AND CARRIED OUT. ALL DUE MEDICATIONS WAS GIVEN. DISCHARGED INSTRUCTIONS WAS GIVEN AND PATIENT VERBALIZED UNDERSTANDING. PATIENT LEFT THE HOSPITAL IN MEDICALLY STABLE CONDITION, MEDICAL RECORDS LIBRARY PROFESSOR BY 2 EMT VIA AMBULANCE.
== END 2021-05-19 13:45 | DRG 559 ==
LOC: ER 01:38 → MEDSG1 07:58
PROVIDERS: ADMIT Registered Nurse; ATTEND Registered Nurse
PROC: 0RWJXJZ Revision of Synthetic Substitute in Right Shoulder Joint, External Approach (ICD-10-PCS; principal; 2021-05-18)
DX: T84.028A Dislocation of other internal joint prosthesis, initial encounter (principal); N17.0 Acute kidney failure with tubular necrosis; Z68.42 Body mass index [BMI] 45.0-49.9, adult; J81.1 Chronic pulmonary edema; E44.0 Moderate protein-calorie malnutrition; E03.9 Hypothyroidism, unspecified; F20.9 Schizophrenia, unspecified; E66.01 Morbid (severe) obesity due to excess calories; E78.5 Hyperlipidemia, unspecified; I10 Essential (primary) hypertension; G40.909 Epilepsy, unspecified, not intractable, without status epilepticus; I25.10 Atherosclerotic heart disease of native coronary artery without angina pectoris; Z95.0 Presence of cardiac pacemaker; Z79.899 Other long term (current) drug therapy; Z96.611 Presence of right artificial shoulder joint; Y83.8 Other surgical procedures as the cause of abnormal reaction of the patient, or of later complication, without mention of misadventure at the time of the procedure; Y92.89 Other specified places as the place of occurrence of the external cause; Z79.01 Long term (current) use of anticoagulants; E87.70 Fluid overload, unspecified; Z20.822 Contact with and (suspected) exposure to COVID-19
CPT/HCPCS: 36415; 71045-TC; 73030-TC; 76770-TC; 80048-TC; 80061-TC; 83735-TC; 84100-TC; 85025-TC; 85730-TC; 87081-TC; 97116-TC; 97530-TC; A4565; C9803; G0378; J0330; J2250; J2270; J2405; J2704; J2765; J3010; J3490; U0003

== ENCOUNTER 2021-08-28 15:51 | Emergency (ER) | payer MEDICARE, OTHER ==
[~2021-08-28] VITALS: Ht 167.6 cm; Wt 113.4 kg
[2021-08-28] MEDS ORDERED: ACETAMINOPHEN 325 MG TABLET PO ONE (16:00)
[2021-08-28] MEDS ORDERED: ACET-2605 PO (18:13)
[2021-08-28] MEDS ORDERED: IBUPROFEN 600 MG TABLET PO ONE (18:30)
[2021-08-28] MEDS ORDERED: ACETAMINOPHEN 325 MG TABLET ONE (18:34)
[2021-08-28] MEDS ORDERED: IBUPROFEN 600 MG TABLET ONE (18:34)
--- NOTE | 2021-08-28 18:41 | NUR ---
CALLED [facility] AND SET UP BLS TRANSPORT TO HOME ETA 1999
--- NOTE | 2021-08-28 20:00 | NUR ---
Patient discharged to home in stable condition. Written and verbal after care instructions given. Patient verbalizes understanding of instruction.
--- NOTE | 2021-08-28 20:00 | NUR ---
[facility] at bedside for transport
[2021-08-28 20:01] VITALS: BP 140/80
== END 2021-08-28 20:28 ==
LOC: ER 16:57
DX: M25.561 Pain in right knee (principal); M25.562 Pain in left knee; I10 Essential (primary) hypertension; E78.5 Hyperlipidemia, unspecified; G40.909 Epilepsy, unspecified, not intractable, without status epilepticus; F20.9 Schizophrenia, unspecified; Z88.8 Allergy status to other drugs, medicaments and biological substances; Z88.6 Allergy status to analgesic agent; Z79.899 Other long term (current) drug therapy; W01.0XXA Fall on same level from slipping, tripping and stumbling without subsequent striking against object, initial encounter; Y93.89 Activity, other specified; Y92.89 Other specified places as the place of occurrence of the external cause; Y99.8 Other external cause status
CPT/HCPCS: 73564-TC

== ENCOUNTER 2021-09-06 00:39 | Emergency (ER) | payer MEDICARE, OTHER ==
[~2021-09-06] VITALS: Ht 175.3 cm; Wt 142.9 kg
[~2021-09-06 00:39] MED LIST changes: +ACET-2605 PO
--- NOTE | 2021-09-06 00:55 | NUR ---
[place] FROM [facility] C/O [facility] FALL "WALKER GOT STUCK FELL DOWN" +HEAD TRUAMA +KO. BILATERAL KNEE PAIN, LOWER BACK PAIN, TOP OF HEAD PAIN. +BLOODTHINNER. PATIENT ALERT AND ORIENTED X3. BROUGHT IN BY STRETCHER PLACED IN A GOWN IN BED 04
[2021-09-06] MEDS ORDERED: ACETAMINOPHEN 325 MG TABLET ONE (00:57)
[2021-09-06] MEDS ORDERED: ACETAMINOPHEN 325 MG TABLET PO ONE (01:00)
--- NOTE | 2021-09-06 01:02 | NUR ---
PT TAKEN TO CT VIA [facility]
--- NOTE | 2021-09-06 01:54 | NUR ---
PT RETURNED TO ER BED [address] V[address] [facility]
--- NOTE | 2021-09-06 04:24 | NUR ---
CALLED [facility] FOR TRANSPORT. NO BARIATRIC UNITS AVAILABLE. CALLED [facility] FOR TRANSPORT AND WAS TOLD TO CALL BACK AT 0630.
--- NOTE | 2021-09-06 06:42 | NUR ---
[facility] ETA 1830
--- NOTE | 2021-09-06 08:12 | NUR ---
CALLED [facility] WILL CALL US WITH NEW ETA IF DIFFERENT.
[2021-09-06 19:08] VITALS: BP 144/85
--- NOTE | 2021-09-06 19:08 | NUR ---
THE PATIENT IS DISCHARGED IN STABLE CONDITON VIA ARRANGED TRANSPO
== END 2021-09-06 19:08 ==
LOC: ER 00:42
DX: S39.012A Strain of muscle, fascia and tendon of lower back, initial encounter (principal); S09.90XA Unspecified injury of head, initial encounter; M25.562 Pain in left knee; M25.561 Pain in right knee; I10 Essential (primary) hypertension; E78.5 Hyperlipidemia, unspecified; F20.9 Schizophrenia, unspecified; Z85.850 Personal history of malignant neoplasm of thyroid; Z87.728 Personal history of other specified (corrected) congenital malformations of nervous system and sense organs; Z88.4 Allergy status to anesthetic agent; Z88.8 Allergy status to other drugs, medicaments and biological substances; Z88.5 Allergy status to narcotic agent; Z79.1 Long term (current) use of non-steroidal anti-inflammatories (NSAID); Z79.52 Long term (current) use of systemic steroids; Z79.899 Other long term (current) drug therapy; W18.30XA Fall on same level, unspecified, initial encounter; Y93.89 Activity, other specified; Y92.89 Other specified places as the place of occurrence of the external cause; Y99.8 Other external cause status
CPT/HCPCS: 70450-TC; 72131-TC; 73564-TC

== ENCOUNTER 2021-09-20 19:53 | Emergency (ER) | payer MEDICARE, OTHER ==
[~2021-09-20] VITALS: Ht 170.2 cm; Wt 136.1 kg
--- NOTE | 2021-09-20 20:15 | NUR ---
TO ER BED 10. BIBRA60 C/O ABD PAIN WITH PAIN ON URINATION X 4 DAYS. DID NOT TAKE ANYTHING TO RELIEVE PAIN. PT STATES SHE MAY BE . AWAITING MD BUSH
--- NOTE | 2021-09-20 20:26 | NUR ---
LAB AT BEDSIDE
--- NOTE | 2021-09-20 20:31 | NUR ---
PT UNABLE TO PROVIDE URINE SAMPLE AT THIS TIME
[2021-09-20 21:00] LABS: BILIRUBIN,URINE NEGATIVE (NEGATIVE); COLOR,URINE YELLOW (YELLOW); LEUKOCYTE ESTERASE ,URINE NEGATIVE (NEGATIVE); NITRITE, URINE NEGATIVE (NEGATIVE); PH,URINE 6.5 (5.0-8.0); PROTEIN,URINE NEGATIVE (NEGATIVE); UGLUCOSE NEGATIVE (NEGATIVE); UROBILINOGEN,URINE 0.2 EU/dL (0.2)
[2021-09-20 21:05] LABS: BACTERIA,URINE None seen /HPF (None Seen); WBC,URINE 0-2 /HPF (0-3)
--- NOTE | 2021-09-20 21:29 | NUR ---
IV LINE ESTABLISHED. LAC 22G. BLOOD OBTAINED AND SENT TO LAB
[2021-09-20 21:39] LABS: BASOPHILS # (AUTO) 0.1 K/uL (0.0-0.2); BASOPHILS % (AUTO) 0.8 % (0.0-2.0); HEMATOCRIT 42 % (33-45); HEMOGLOBIN 13.9 g/dL (11.5-14.8); LYMPHOCYTES # (AUTO) 1.2 K/uL (0.8-4.8); LYMPHOCYTES % (AUTO) 18.1 % (20.0-44.0); MEAN CORPUSCULAR HGB CONC 33 g/dl (31.0-36.0); MEAN CORPUSCULAR VOLUME 94 fL (82-100); MONOCYTES # (AUTO) 0.5 K/uL (0.1-1.30); MONOCYTES % (AUTO) 7.4 % (2.0-12.0); NEUTROPHILS % (AUTO) 63.7 % (43.0-81.0); PLATELET COUNT (AUTO) 209 K/uL (150-450); WHITE BLOOD COUNT (AUTO) 6.4 K/uL (4.3-11.0)
[2021-09-20] MEDS ORDERED: NITR100C6 PO (22:40)
[2021-09-20 22:54] LABS: ALBUMIN 3.5 g/dL (3.4-5.0); BILIRUBIN,DIRECT 0.1 mg/dL (0.0-0.2); POTASSIUM 3.8 mmol/L (3.5-5.1)
--- NOTE | 2021-09-20 22:59 | NUR ---
[facility] ETA 70-90MIN
--- NOTE | 2021-09-20 23:00 | NUR ---
IV removed. Catheter intact and site benign. Pressure and 4x4 applied to site. No bleeding noted.
[2021-09-20 23:13] LABS: BILIRUBIN,TOTAL 0.2 mg/dL (0.2-1.0); CREATININE 1.5 mg/dL (0.6-1.3); TOTAL PROTEIN, SERUM 7.6 g/dL (6.4-8.2)
--- NOTE | 2021-09-20 23:51 | NUR ---
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
[2021-09-20 23:52] VITALS: BP 151/81
== END 2021-09-20 23:53 | disposition home or self-care (01) ==
LOC: ER 20:15
DX: N39.0 Urinary tract infection, site not specified (principal); I10 Essential (primary) hypertension; E78.5 Hyperlipidemia, unspecified; F20.9 Schizophrenia, unspecified; Z87.728 Personal history of other specified (corrected) congenital malformations of nervous system and sense organs; Z85.850 Personal history of malignant neoplasm of thyroid; Z88.4 Allergy status to anesthetic agent; Z88.5 Allergy status to narcotic agent; Z88.8 Allergy status to other drugs, medicaments and biological substances; Z79.1 Long term (current) use of non-steroidal anti-inflammatories (NSAID); Z79.899 Other long term (current) drug therapy
CPT/HCPCS: 36415; 80048-TC; 80076-TC; 81001; 83690-TC; 84703-TC; 85025-TC

== ENCOUNTER 2021-10-29 15:57 | Emergency (ER) | payer MEDICARE, OTHER ==
[~2021-10-29] VITALS: Ht 177.8 cm; Wt 139.3 kg
[~2021-10-29 15:57] MED LIST changes: +NITR100C6 PO
--- NOTE | 2021-10-29 16:05 | NUR ---
PATRICIA FROM [facility] C/O ABDOMINAL PAIN STARTED TODAY +DIARRHEA. PATIENT IS ALERT, ORIENTED X3. SLOW IN TALKING BUT ANSWERS QUESTIONS. PLACED COMFORTABLY IN BED. VITALS SIGNS CHECKED.
[2021-10-29] MEDS ORDERED: MAG30ORA PO (16:09)
[2021-10-29] MEDS ORDERED: FLUT1BLS IH (16:09)
[2021-10-29] MEDS ORDERED: SENN-261 PO (16:09)
[2021-10-29] MEDS ORDERED: ACET-2605 PO (16:09)
[2021-10-29] MEDS ORDERED: DIPH25CA51 PO (16:09)
[2021-10-29] MEDS ORDERED: BISA10SU11 RC (16:09)
[2021-10-29] MEDS ORDERED: POLY17PO4 PO (16:09)
[2021-10-29] MEDS ORDERED: IV NS 0.9% 1,000 ML BAG IV ONE (16:30)
--- NOTE | 2021-10-29 16:30 | NUR ---
IV CANNULA G20 INSERTED ON LEFT AC. BLOOD DRAWN AND SENT TO LAB.
[2021-10-29 16:49] LABS: BASOPHILS % (AUTO) 0.3 % (0.0-2.0); EOSINOPHILS % (AUTO) 2.9 % (0.0-6.0); HEMATOCRIT 44 % (33-45); HEMOGLOBIN 14.6 g/dL (11.5-14.8); LYMPHOCYTES # (AUTO) 0.8 K/uL (0.8-4.8); LYMPHOCYTES % (AUTO) 13.9 % (20.0-44.0); MEAN CORPUSCULAR HGB CONC 33 g/dl (31.0-36.0); MEAN CORPUSCULAR VOLUME 93 fL (82-100); MONOCYTES # (AUTO) 0.5 K/uL (0.1-1.30); MONOCYTES % (AUTO) 8.5 % (2.0-12.0); NEUTROPHILS # (AUTO) 4.2 K/uL (1.8-8.9); NEUTROPHILS % (AUTO) 74.4 % (43.0-81.0); PLATELET COUNT (AUTO) 225 K/uL (150-450); RED BLOOD CELL COUNT(AUTO) 4.77 MIL/uL (4.0-5.2); WHITE BLOOD COUNT (AUTO) 5.7 K/uL (4.3-11.0)
[2021-10-29] MEDS ORDERED: ONDANSETRON HCL/PF 4 MG/2 ML VIAL IVP ONE (17:00)
[2021-10-29 17:03] LABS: CALCIUM, SERUM 9.4 mg/dL (8.5-10.1); CREATININE 1.5 mg/dL (0.6-1.3); POTASSIUM 3.7 mmol/L (3.5-5.1)
[2021-10-29 17:07] LABS: ALBUMIN 3.4 g/dL (3.4-5.0); BILIRUBIN,DIRECT 0.1 mg/dL (0.0-0.2); BILIRUBIN,TOTAL 0.4 mg/dL (0.2-1.0); TOTAL PROTEIN, SERUM 7.7 g/dL (6.4-8.2)
--- NOTE | 2021-10-29 17:59 | NUR ---
PATIENT PASSED STOOL LARGE AMOUNT. STRAIGHT CATH DONE,URINE SAMPLE SENT TO LAB.
[2021-10-29 18:07] LABS: BILIRUBIN,URINE NEGATIVE (NEGATIVE); COLOR,URINE YELLOW (YELLOW); LEUKOCYTE ESTERASE ,URINE NEGATIVE (NEGATIVE); NITRITE, URINE NEGATIVE (NEGATIVE); PH,URINE 5.5 (5.0-8.0); PROTEIN,URINE NEGATIVE (NEGATIVE); UGLUCOSE NEGATIVE (NEGATIVE); UROBILINOGEN,URINE 0.2 EU/dL (0.2)
[2021-10-29 18:11] LABS: WBC,URINE 0-2 /HPF (0-3)
[2021-10-29 18:12] LABS: BACTERIA,URINE RARE /HPF (None Seen)
--- NOTE | 2021-10-29 19:04 | NUR ---
called [facility] and set up bls transport eta 1999
--- NOTE | 2021-10-29 19:37 | NUR ---
REPORT GIVEN TO [facility].
--- NOTE | 2021-10-29 20:00 | NUR ---
IV CANNULA REMOVED
--- NOTE | 2021-10-29 20:04 | NUR ---
REPORT GIVEN TO EMS [facility] UNIT 320.
--- NOTE | 2021-10-29 20:25 | NUR ---
PATIENT TRANSFERRED TO HER [facility] VIA EMS
[2021-10-29 20:26] VITALS: BP 150/100
== END 2021-10-29 20:27 ==
LOC: ER 15:59
DX: R10.84 Generalized abdominal pain (principal); I10 Essential (primary) hypertension; F20.9 Schizophrenia, unspecified; E03.9 Hypothyroidism, unspecified; E78.5 Hyperlipidemia, unspecified; J44.9 Chronic obstructive pulmonary disease, unspecified; Z86.69 Personal history of other diseases of the nervous system and sense organs; Z88.8 Allergy status to other drugs, medicaments and biological substances; Z79.899 Other long term (current) drug therapy
CPT/HCPCS: 36415; 80048; 80076; 81001; 83690; 85025; 96374; 99283; J2405; J7030